=== PATIENT | male | born 1940 | race Caucasian/White ===

== ENCOUNTER → 2017-03-15 | Outpatient (CLI) | payer BC ==
[~2017-03-15] MED LIST: CYAN10005 PO; NXM/40 PO
--- NOTE | 2017-03-15 14:33 | DIAGNOSTIC IMAGING REPORT ---
R INJ MAJOR JN SHLDR,HIP,KNEE CLINICAL HISTORY: RIGHT HIP INTRAARTICULAR INJpain. Arthritis. COMPARISON STUDY: None FLUOROSCOPY TIME: 10 seconds. FINDINGS: Following description of procedure and informed consent, a 20-gauge needle was inserted to the right hip joint space. A test injection confirmed its intra-articular location. This is low back, a combination of Xylocaine, betamethasone, and bupivacaine. There are no complications. IMPRESSION: Successful therapeutic injection right hip The above report was generated using voice recognition software. It may contain grammatical, syntax or spelling errors. Electronically signed by: Bryce Reynolds M.D. 03/15/2017 2:32 PM Dictated Date/Time: 03/15/2017 2:30 PM
== END | disposition home or self-care (01) ==
LOC: C.RADBC 13:40
PROVIDERS: ATTEND Orthopaedic Surgery
DX: M16.11 Unilateral primary osteoarthritis, right hip (principal)

== ENCOUNTER → 2017-04-12 | Outpatient (CLI) | payer BC ==
--- NOTE | 2017-04-12 15:34 | DIAGNOSTIC IMAGING REPORT ---
PELVIS/RIGHT HIP MRI HISTORY: RIGHT HIP PAIN TECHNIQUE: Multiplanar multisequence MRI of the pelvis and right hip were performed without the use of intravenous contrast. COMPARISON STUDY: Pelvis/right hip 03/11/2017. FINDINGS: No fracture or dislocation within the pelvis or hips. Small right hip effusion. There is full-thickness cartilage loss involving a 2 cm area within the superior aspect of the right hip. There is associated subchondral edema within the superior aspect of the femoral head and mild subchondral edema and subchondral cystic change within the superior acetabulum. This is consistent with severe osteoarthritis. There is also tear/maceration of the superior labrum with a 3.2 x 1.0 cm paralabral cyst. There are marginal osteophytes at the acetabulum and right femoral head. No evidence for femoral head collapse. Mild soft tissue edema surrounding the muscles of the right hip including the right adductor muscles. This is likely reactive to the long-standing degenerative change. However, a strain at the proximal attachment of the adductor muscles could also have a similar appearance. Benign prostatic hypertrophy. IMPRESSION: 1. Severe osteoarthritis within the superior aspect of the right hip. 2. Small right hip effusion. 3. There is a superior labral tear/maceration with a 3.2 x 1.0 cm paralabral cyst. 4. Mild soft tissue edema surrounding the muscles of the right hip including the right adductor muscles. This is likely reactive to the long-standing degenerative change. However, a strain at the proximal attachment of the adductor muscles could also have a similar appearance. Electronically signed by: Pasquale Dan M.D. 04/12/2017 3:33 PM Dictated Date/Time: 04/12/2017 3:24 PM
== END | disposition home or self-care (01) ==
LOC: C.MRIBC 14:12
PROVIDERS: ATTEND Orthopaedic Surgery
DX: M25.551 Pain in right hip (principal)

== ENCOUNTER 2017-07-08 07:15 | Inpatient (IN) | payer BC, OTHER ==
[2017-06-03 14:53] VITALS: BMI 23.0
--- NOTE | 2017-06-03 15:22 | PAT Medication Instructions ---
Service Date Jun 03, 2017. Current Home Medication List Cyanocobalamin (Vitamin B-12), 1,000 MCG PO QAM Esomeprazole Magnesium (Nexium), 40 MG PO QAM Gabapentin (Neurontin), 300 MG PO BID Medication Instructions For Your Scheduled Surgery - Hold the following medications the morning of surgery: Cyanocobalamin (Vitamin B-12), 1,000 MCG PO QAM - Take the following medications the morning of surgery with a sip of water: Esomeprazole Magnesium (Nexium), 40 MG PO QAM Gabapentin (Neurontin), 300 MG PO BID - Take the following medications as scheduled the night before surgery: Gabapentin (Neurontin), 300 MG PO BID If you have any questions please call us at [phone] or [phone] or [phone]
[2017-06-03 16:10] LABS: BASO % 0.5 %; BASO ABS # 0.03 K/uL (0-0.2); EOS % 4.9 %; HEMATOCRIT 39.2 % (42-52); LYMPH % 27.6 %; LYMPH ABS # 1.68 K/uL (1.2-3.4); MEAN CELL VOLUME 87.7 fL (80-100); MEAN CORPUSCULAR HEMOGLOBIN 31.3 pg (25-34); MEAN CORPUSCULAR HGB CONC 35.7 g/dl (32-36); MEAN PLATELET VOLUME 9.1 fL (7.4-10.4); MONO % 11.2 %; MONO ABS # 0.68 K/uL (0.11-0.59); NEUT % 55.8 %; PLATELET COUNT 210 K/uL (130-400); RED CELL DISTRIBUTION WIDTH CV 12.5 % (11.5-14.5); RED CELL DISTRIBUTION WIDTH SD 40.4 fL (36.4-46.3); WHITE BLOOD COUNT 6.09 K/uL (4.8-10.8)
--- NOTE | 2017-06-03 16:14 | DIAGNOSTIC IMAGING REPORT ---
CHEST 2 VIEWS ROUTINE HISTORY: Preop. COMPARISON: 01/20/2016. FINDINGS: The lungs are mildly hyperexpanded with apical predominant emphysematous changes. No focal lung consolidations to suggest pneumonia. No evidence for pulmonary edema. The heart is normal in size. No pleural effusions. No pneumothorax. IMPRESSION: No significant change compared to the prior study. No acute process. Electronically signed by: Pasquale Dan M.D. 06/03/2017 4:13 PM Dictated Date/Time: 06/03/2017 4:11 PM
[2017-06-03 16:18] LABS: CALCIUM 8.8 mg/dl (8.5-10.1); CREATININE 1.2 mg/dl (0.60-1.40); POTASSIUM 4.4 mmol/L (3.5-5.1)
[2017-06-03 16:19] LABS: PTT PATIENT 26.5 SECONDS (21.0-31.0)
--- NOTE | 2017-06-29 21:38 | HISTORY & PHYSICAL EXAMINATION ---
DATE OF ADMISSION: 07/08/2017 CHIEF COMPLAINT: Right hip pain. HISTORY OF PRESENT ILLNESS: This is a 76-year-old very active gentleman who presents for surgical treatment of his right hip. He is referred by my partner Dr. Grimes. This started about 7-8 months ago. No particular injury. He describes mostly groin pain, thigh pain and some buttock pain. He has increased pain the further he walks. He has had difficulty putting his shoes and socks on for quite some time. He has had injections which provided minimal relief. He would like to proceed with surgical treatment. PAST MEDICAL HISTORY: 1. Gastroesophageal reflux disease. 2. Arthritis. 3. 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 PAST SURGICAL HISTORY: None. ALLERGIES: None. CURRENT MEDICINES: 1. Nexium 40 mg daily. 2. Vitamin B12. 3. Gabapentin for neuropathy. SOCIAL HISTORY: A 76-year-old male. He lives in [place]. He is . 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 FAMILY HISTORY: Negative for diabetes, heart disease, blood clots. REVIEW OF SYSTEMS: Negative for diabetes, neurologic problems, vascular problems, bleeding disorders. He has underlying neuropathy of unclear nature. No history of DVT or PE. PHYSICAL EXAMINATION: GENERAL: This is a thin, healthy elderly male. He looks to be in good health. HEENT: Benign. NECK: Supple. No lymphadenopathy. LUNGS: Clear to auscultation. HEART: Has a regular rate and rhythm. ABDOMEN: Soft, nontender, nondistended. EXTREMITIES: Grossly neurovascularly intact except as follows: Examination of the right hip and leg reveals the patient walks with a slight bit of a limp. Leg lengths clinically appear pretty equal. He does have stiffness in his hip with internal rotation to neutral, which recreates some pain. External rotation at 25 degrees. Negative straight leg raise. X-RAYS: X-rays of the right hip show advanced right hip DJD. He has complete loss of the superior joint space. He has little bit of the femoral head subluxation out of the acetabulum. ASSESSMENT: A 76-year-old very active gentleman with advanced right hip arthritis. Really gotten worse over the past 6 months and failed conservative treatment. He would like to have his right hip replaced. PLAN: We will take him to the operating room and do a right total hip replacement. The risks and benefits of this procedure were explained to the patient including but not limited to DVT, PE, , infection, neurological injury, vascular injury, bleeding problem, pain, limited range of motion, stiffness, leg length inequality, fracture, nerve palsy, need for blood transfusion, etc. The patient understands and desires to proceed. Informed consent was obtained. As far as discharge plans, he is planning to go to [facility] for a brief rehab stay afterwards.
[2017-07-08] VITALS (16 sets, daily range): BP systolic 100–170; BP diastolic 55–91; PULSE 68–83; TEMP 36.3–36.7; O2SAT 95–100; Ht 170.2 cm; Wt 63.6 kg
[~2017-07-08] VITALS: Ht 170.2 cm; Wt 63.6 kg
[~2017-07-08 07:15] MED LIST changes: +ACETAMINOPHEN 500 MG TAB PO SCH; +BUPIVACAINE 0.5 % 5 MG/1 ML PF 10ML VIAL ONE; +CEFAZOLIN 2000MG IV PUSH 15 ML IV SCH; +FAMOTIDINE 20 MG TAB PO SCH; +GABA-113 PO; +GABAPENTIN 300 MG CAP PO SCH; +LACTATED RINGER'S 1000ML 1,000 ML IV SCH; +LACTATED RINGER'S 1000ML 500 ML IV SCH; +LACTATED RINGER'S 1000ML IV SCH; +METOCLOPRAMIDE HCL 10 MG TAB PO SCH; +TRANEXAMIC ACID INJ 1,000 MG x 1 Bag Preop IV SCH
[2017-07-08] MEDS ORDERED: FENTANYL CITRATE INJ 50 MCG/1 ML 2 ML VIAL ONE (07:33)
[2017-07-08] MEDS ORDERED: MIDAZOLAM HCL 1 MG/ML 2ML VIAL ONE ×2 (07:34)
[2017-07-08] MEDS ORDERED: MORPHINE SULFATE 1MG/1ML 30ML VIAL IV ONE (07:38)
[2017-07-08] MEDS ORDERED: NALOXONE HCL INJ 0.08 MG in SYRINGE 1.8 ML IV PRN (08:56)
[2017-07-08] MEDS ORDERED: LACTATED RINGER'S 1000ML 500 ML IV PRN (08:56)
[2017-07-08] MEDS ORDERED: SODIUM CHLORIDE 0.9% 1000ML 1,000 ML IV PRN (08:56)
[2017-07-08] MEDS ORDERED: NALOXONE HCL INJ 1 MG in SODIUM CHLORIDE 0.9% 1000ML 1,000 ML IV PRN ×4 (08:56)
[2017-07-08] MEDS ORDERED: NO NARCOTICS OR SEDATIVES SCH (09:00)
[2017-07-08] MEDS ORDERED: MoRPHine SULFATE PF 1 MG/ML 10 ML AMP/VIAL EPI PRN (09:00)
[2017-07-08] MEDS ORDERED: KETOROLAC TROMETHAMINE 15 MG/ML VIAL IV. PRN (09:00)
[2017-07-08] MEDS ORDERED: ONDANSETRON INJ 2 MG/ML 2 ML VIAL IV PRN ×3 (09:00→11:00)
[2017-07-08] MEDS ORDERED: KETOROLAC TROMETHAMINE 30 MG/ML VIAL IV. PRN ×2 (09:00)
[2017-07-08] MEDS ORDERED: MEPERIDINE HCL 25 MG/ML CARP IV PRN ×2 (09:00)
[2017-07-08] MEDS ORDERED: PHENYLEPHRINE 100MCG/ML 5ML SYR IV PRN (09:00)
[2017-07-08] MEDS ORDERED: NALBUPHINE HCL INJ 10 MG/ML AMP IV PRN (09:00)
[2017-07-08] MEDS ORDERED: DiphenhydrAMINE HCL 50 MG/ML VIAL IV PRN (09:00)
[2017-07-08] MEDS ORDERED: EpHEDrine SULFATE INJ 50 MG/ML AMP IV PRN ×2 (09:00)
[2017-07-08] MEDS ORDERED: ATROPINE SULFATE 0.1 MG/ML 5ML SYR IV PRN (09:00)
[2017-07-08] MEDS ORDERED: NALOXONE HCL 0.4 MG/1 ML VIAL/CARP IV PRN (09:00)
--- NOTE | 2017-07-08 09:09 | History & Physical Bridge Note ---
H&P Re-Evaluation Bridge Note: I have examined the patient, reviewed the History & Physical and in the interval since the performance of the History & Physical I have noted the following changes of clinical significance: No changes noted
[2017-07-08] MEDS ORDERED: BACITRACIN 50000 UNIT VIAL ONE (09:10)
[2017-07-08] MEDS ORDERED: BUPIVACAINE/EPINEPHRINE 0.5% MPF 1:200,000 30 ML VIAL ONE (09:10)
[2017-07-08] MEDS ORDERED: PHENYLEPHRINE HCL INJ 10 MG/ML VIAL ONE (09:38)
[2017-07-08] MEDS ORDERED: EpHEDrine SULFATE 50MG/5ML SYR ONE (09:56)
[2017-07-08] MEDS ORDERED: EpHEDrine SULFATE INJ 50 MG/ML AMP ONE (09:57)
--- NOTE | 2017-07-08 10:53 | [facility] Post Operative Brief Note ---
Immediate Operative Summary Operative Date Jul 08, 2017. Pre-Operative Diagnosis Advanced Right Hip Degenerative Joint Disease Post-Operative Diagnosis Advanced Right Hip Degenerative Joint Disease Procedure(s) Performed Right Total Hip Arthroplasty--Uncemented Surgeon Dr. Adams Extractions Technologist Surgeon(s) DEQUAN Sifuentes Estimated Blood Loss 300 ml Findings Consistent with Post-Op Diagnosis Fluids (cc crystalloids) 2000 cc Specimens A. Right Femoral Head Drains None Anesthesia Type Spinal MAC Complication(s) none Disposition Accompanied Pt To Recover: yes Disposition: Recovery Room / PACU
[2017-07-08] MEDS ORDERED: SILVER SULFADIAZINE 1% CR 50 GM JAR EXT PRN (11:00)
[2017-07-08] MEDS ORDERED: CEFAZOLIN IV 1,000 MG in DEXTROSE 5% 50ML 50 ML IV SCH (11:00)
[2017-07-08] MEDS ORDERED: ZOLPIDEM TARTRATE 5 MG TAB PO PRN (11:00)
[2017-07-08] MEDS ORDERED: ALUMINUM/MAGNESIUM/SIMETH (MAALOX MAX) 30 ML UDC PO PRN (11:00)
[2017-07-08] MEDS ORDERED: MAGNESIUM HYDROXIDE SUSP 30 ML UDC PO PRN (11:00)
[2017-07-08] MEDS ORDERED: TAMSULOSIN HCL 0.4 MG CAP PO PRN (11:00)
[2017-07-08] MEDS ORDERED: BISACODYL 10 MG SUPP PR PRN (11:00)
[2017-07-08] MEDS ORDERED: METOCLOPRAMIDE HCL INJ 5 MG/ML 2 ML VIAL IV PRN (11:00)
--- NOTE | 2017-07-08 11:30 | DIAGNOSTIC IMAGING REPORT ---
R PELVIS/UNILATERAL HIP 1 VIEW HISTORY: 76 years-old Male IN PACU - A/P PELVIS and LATERAL HIP INCLUDING ALL OF IMPLANT status post right hip total joint arthroplasty. Degenerative joint disease. COMPARISON: Pelvis and hip radiographs 06/03/2017 TECHNIQUE: AP view the pelvis with frog-leg view of the right hip FINDINGS: Mild to moderate left hip osteoarthritis redemonstrated. Postoperative changes of right hip arthroplasty with satisfactory alignment. Expected postsurgical swelling and deep tissue air is noted along with a surgical drain and lateral skin irma. No retained foreign body identified. Calcifications of the pelvis suggest phleboliths. IMPRESSION: Right hip arthroplasty with satisfactory alignment. The above report was generated using voice recognition software. It may contain grammatical, syntax or spelling errors. Electronically signed by: German Solomon M.D. 07/08/2017 11:29 AM Dictated Date/Time: 07/08/2017 11:28 AM
--- NOTE | 2017-07-08 11:39 | Anesthesiology Progress Note ---
Anesthesia Post Op Note Date & Time Jul 08, 2017 at 11:39 Vital Signs Pain Intensity: 0 Vital Signs Past 12 Hours Date Time Temp Pulse Resp B/P (MAP) Pulse Ox O2 Delivery O2 Flow Rate FiO2 07/08/17 11:31 36.4 75 19 109/57 (65) 99 Nasal Cannula 2 07/08/17 11:11 116/59 07/08/17 11:09 78 23 100 07/08/17 11:09 76 23 07/08/17 11:08 72 23 100 07/08/17 11:08 71 23 07/08/17 11:06 117/59 07/08/17 11:03 80 21 07/08/17 11:03 79 21 100 07/08/17 11:01 141/65 07/08/17 10:58 75 20 07/08/17 10:58 74 20 100 07/08/17 10:56 158/71 07/08/17 10:54 172/77 07/08/17 10:53 36.0 74 18 172/77 (123) 99 Oxymask 10 07/08/17 07:42 36.7 74 20 170/91 97 Room Air Notes Mental Status: alert / awake / arousable, participated in evaluation Pt Amnestic to Procedure: Yes Nausea / Vomiting: adequately controlled Pain: adequately controlled Airway Patency, RR, SpO2: stable & adequate BP & HR: stable & adequate Hydration State: stable & adequate Anesthetic Complications: no major complications apparent
--- NOTE | 2017-07-08 11:45 | OPERATIVE REPORT ---
DATE OF OPERATION: 07/08/2017 SURGEON: Rito Adams MD STOCK AND STATION AGENT: DEQUAN Mclaughlin PREOPERATIVE DIAGNOSIS: Right hip degenerative joint disease. POSTOPERATIVE DIAGNOSIS: Same. PROCEDURE PERFORMED: Right uncemented ceramic on highly cross-linked polyethylene total hip arthroplasty. COMPLICATIONS: None. ESTIMATED BLOOD LOSS: 300 mL. FLUID REPLACEMENT: 2000 mL crystalloid fluid replacement. ANESTHESIA: Spinal. DRAINS: None. SPECIMENS: Right femoral head sent for pathology. OPERATIVE INDICATIONS: The patient is a 76-year-old very active gentleman who has had a several year history of the right hip pain and discomfort that has gotten significantly worse over the past 6-7 months. He has had classic hip arthritic symptoms. He failed conservative treatment. He elected to proceed with operative treatment. OPERATIVE FINDINGS: Operative findings revealed advanced right hip DJD. He had grade 4 nykt-ax-yoyc disease with eburnation and degeneration of the femoral head as well as the acetabulum. He had a fairly large medial acetabular osteophyte. Moderate size joint effusion. OPERATIVE IMPLANTS: Operative implants consisted of: 1. A Biomet G7 size 56-mm acetabular shell. 2. An apex hole eliminator. 3. A 6.5 cancellous acetabular screws, 1 at 25 mm length and 1 at 35 mm length. 4. Highly cross-linked polyethylene liner with a 56 mm outer diameter and 36 mm inner diameter. 5. DePuy size 13 coxa vara Corail femoral stem. 6. A +1.5/36 mm ceramic articular ball. OPERATIVE PROCEDURE: The patient was taken to the operating room, identified and placed on the operating table in the supine position. All contact areas were appropriately padded. IV antibiotics were provided by anesthesia team. A spinal anesthetic had been implemented in the holding area. Leary catheter was placed in sterile fashion. The patient was then placed in the left lateral decubitus position. An axillary roll was placed. Stulberg hip positioner was used for positioning. All contact areas were meticulously padded. The right hip and leg were then prepped and draped in the usual sterile fashion. A posterolateral approach to the right hip was then performed through a curvilinear incision centered over the greater trochanter. Sharp dissection was carried out through the subcutaneous tissue down to the level of the IT band and gluteal fascia. The IT band and gluteal fascia were incised longitudinally in line with skin incision. The underlying greater trochanteric bursa was excised. There were fairly large venous bleeders in the posterior aspect of his hip and I spent quite a bit of time cauterizing these and in maintaining and obtaining hemostasis. The piriformis and external rotators were then tagged and taken off the posterior aspect of the hip joint capsule. Great care was taken throughout the procedure to protect the sciatic nerve at all times. A posterior capsulotomy was then performed leaving a large flap for later repair. Hip was internally rotated and dislocated. Femoral neck osteotomy cut was made with the final cut a cm above the lesser trochanter. Femoral head was removed and sent for pathology. The femur was retracted anteriorly. Attention was then drawn to the acetabulum. The acetabulum labrum was excised. The pulvinar fat was excised. Sequential reaming of the acetabulum was then performed beginning with a size 49 progressing up to 55. A 56-mm Biomet G7 acetabular shell was then placed in about 40 degrees of lateral opening and 20 degrees of anteversion. It was fixed with two 6.5 cancellous acetabular screws. A trial liner was placed. Attention was then drawn to the femur. The proximal femur was entered with a cookie cutter followed by canal finder. I began broaching the proximal femur with a size 8 and then progressing up to a 13. We got good fit at a 13. I then trialed the hip. The +5 articular ball provided full stability, but it was just a bit tight in extension. Therefore, we used the +1.5 articular ball. The hip was fully stable in full extension and external rotation, flexion to 90 degrees, and internal rotation to 50+ degrees. We elected to use these implants. All trial implants were removed. An apex hole eliminator was placed. A highly cross-linked polyethylene liner was placed. A size 13 Corail coxa vara femoral stem was then impacted in position. A +1.5/36 mm ceramic articular ball was placed. Hip was located and once again found to be stable. Leg lengths appeared equal. Attention was then drawn toward closing. The wound was irrigated with copious amounts of pulsatile lavage solution. I did inject locally with 60 mL of 0.5% Marcaine with epinephrine. The posterior capsule and external rotators were repaired through drill holes in the posterior trochanter with #2 Ti-Cron suture. The IT band and gluteal fascia were then closed with #1 PDS suture in running fashion. The subcutaneous tissues were then closed with 2 layers with the deep layer #1 Vicryl sutures and subcutaneous tissues with 2-0 Dexon suture in a buried interrupted fashion. The skin was closed with skin irma. Leg was then cleaned and dried and a sterile dressing of Xeroform, 4 x 4, sterile ABD pad and foam tape was applied. The patient was then transferred to the recovery room in stable condition. The patient tolerated the procedure well with no complications. All needle and sponge counts were correct at the end of the operation. I attest to the content of the Intraoperative Record and any orders documented therein. Any exception s are noted below.
[2017-07-08] MEDS: ACETAMINOPHEN 500 MG TAB PO SCH ×2 (13:32→21:31)
[2017-07-08] MEDS: D5W AND 1/2NSS + 20MEQ KCL 1,000 ML IV SCH ×2 (13:32→23:04)
[2017-07-08] MEDS ORDERED: PNEUMOCOCCAL ADMINISTRATION CHARGE ONE (14:15)
[2017-07-08] MEDS ORDERED: PNEUMOCOCCAL POLYSACCHARIDES 25 MCG/0.5 ML VIAL/SYR IM. ONE (14:15)
[2017-07-08] MEDS: FERROUS GLUCONATE 324 MG TAB PO SCH ×2 (17:35→17:49)
[2017-07-08] MEDS: CEFAZOLIN IV 1,000 MG in SYRINGE 0 ML IV SCH (17:43)
[2017-07-08] MEDS: KETOROLAC TROMETHAMINE 15 MG/ML VIAL IV. SCH ×2 (17:43→23:39)
--- NOTE | 2017-07-08 18:06 | PROGRESS NOTE ---
DATE: 07/08/2017 SUBJECTIVE: A 76-year-old gentleman postop from a right total hip replacement. He is doing well. Not having any pain yet. No chest pain or shortness of breath. Not feeling dizzy or lightheaded. OBJECTIVE: VITAL SIGNS: Temperature 36.3. Vital signs stable. GENERAL: Reveals a pleasant elderly male. He is sitting up in bed and looks comfortable. LUNGS: Clear to auscultation. HEART: Has a regular rate and rhythm. ABDOMEN: Soft, nontender, nondistended. EXTREMITIES: Grossly neurovascularly intact except as follows: Examination of the right hip and leg reveals leg lengths to be equal. His dressing is clean, dry and intact. Thigh is soft and supple. He can dorsiflex and plantarflex his foot his appropriately. He is neurologically intact. X-RAYS: X-rays of the right hip from recovery room were reviewed. It shows a right uncemented total hip arthroplasty. Components looked to be in good position. No signs of problems. ASSESSMENT: A 76-year-old gentleman postop from a right total hip replacement, doing well. His pain is controlled. Hip is located. He is neurologically intact. PLAN: 1. DVT prophylaxis including thigh-high TEDs, SCDs, and aspirin twice a day. 2. PT/OT. Weightbearing as tolerated. Right total hip protocol. 3. Pain control, doing well with current pain regimen. 4. IV antibiotics x24 hours. 5. Disposition: Plan is to discharge him to [facility]. He has made arrangements for that. Apparently they have a bed available on Tuesday. LUIS
[2017-07-08] MEDS ORDERED: TRANEXAMIC ACID INJ 1,000 MG in SODIUM CHLORIDE 0.9% 100ML 100 ML IV SCH (18:30)
[2017-07-08] MEDS: ASPIRIN 81 MG ECTAB PO SCH (20:34)
[2017-07-08] MEDS: GABAPENTIN 300 MG CAP PO SCH (20:34)
[2017-07-08] MEDS: DOCUSATE SODIUM 100 MG CAP PO SCH (20:34)
[2017-07-08] MEDS: SENNA 8.6 MG TAB PO SCH (20:35)
[2017-07-09 00:50] VITALS: O2SAT 100
[2017-07-09 01:50] VITALS: O2SAT 99
[2017-07-09] MEDS ORDERED: DC INTRASPINAL MORPHINE SCH (02:00)
[2017-07-09] MEDS: CEFAZOLIN IV 1,000 MG in SYRINGE 0 ML IV SCH (02:25)
[2017-07-09 03:49] VITALS: BP 108/62; PULSE 74; TEMP 36.4; O2SAT 97
[2017-07-09] MEDS: KETOROLAC TROMETHAMINE 15 MG/ML VIAL IV. SCH (05:19)
[2017-07-09] MEDS: ACETAMINOPHEN 500 MG TAB PO SCH ×3 (05:20→22:12)
[2017-07-09 05:53] LABS: BASO % 0.2 %; BASO ABS # 0.02 K/uL (0-0.2); EOS % 3.1 %; EOS ABS # 0.25 K/uL (0-0.5); HEMATOCRIT 30.3 % (42-52); HEMOGLOBIN 10.8 g/dL (14.0-18.0); IG# 0.01 K/uL (0.00-0.02); LYMPH % 11.6 %; LYMPH ABS # 0.93 K/uL (1.2-3.4); MEAN CELL VOLUME 86.8 fL (80-100); MEAN CORPUSCULAR HEMOGLOBIN 30.9 pg (25-34); MEAN CORPUSCULAR HGB CONC 35.6 g/dl (32-36); MEAN PLATELET VOLUME 9.1 fL (7.4-10.4); MONO % 10.1 %; MONO ABS # 0.81 K/uL (0.11-0.59); NEUT % 74.9 %; NEUT ABS # 6.03 K/uL (1.4-6.5); PLATELET COUNT 165 K/uL (130-400); RED CELL DISTRIBUTION WIDTH CV 12.5 % (11.5-14.5); RED CELL DISTRIBUTION WIDTH SD 39.5 fL (36.4-46.3); WHITE BLOOD COUNT 8.05 K/uL (4.8-10.8)
[2017-07-09 06:21] LABS: CALCIUM 7.4 mg/dl (8.5-10.1); CREATININE 1.41 mg/dl (0.60-1.40); POTASSIUM 4.3 mmol/L (3.5-5.1)
[2017-07-09 07:03] VITALS: BP 121/75; PULSE 79; TEMP 36.8; O2SAT 97
--- NOTE | 2017-07-09 08:00 | PROGRESS NOTE ---
DATE: 07/09/2017 SUBJECTIVE: A 76-year-old gentleman postop day 1 from a right hip replacement. He is doing well. Denies significant pain. No chest pain or shortness of breath. Not feeling dizzy or lightheaded. OBJECTIVE: VITAL SIGNS: Temperature 36.8. Vital signs stable. PHYSICAL EXAMINATION: GENERAL: Reveals a healthy pleasant elderly male. He is sitting up in bed, looks pretty comfortable. EXTREMITIES: Examination of the right hip and leg reveals leg lengths to be equal. Dressing is clean, dry and intact. Hip is located. He is neurologically intact. LABORATORY DATA: Hemoglobin 10.8, hematocrit 30.3. Electrolytes are stable. Creatinine is slightly elevated at 1.41. ASSESSMENT: A 76-year-old gentleman postop day 1 from a right total hip replacement, doing pretty well. Pain is controlled. He is anemic without symptoms. Creatinine is elevated slightly, likely due to volume status and possible Toradol use. PLAN: 1. DVT prophylaxis including thigh-high TEDs, SCDs, and aspirin twice a day. 2. PT/OT. Weight bear as tolerated. Right total hip protocol. 3. Pain control. Doing well with current pain regimen. 4. Anemia. We will continue iron supplementation. No need for transfusion. 5. Elevated creatinine. We will stop his Toradol. We will recheck his creatinine tomorrow. 6. Disposition: He is hoping to be discharged to [facility]. They have a bed for him on Tuesday.
[2017-07-09] MEDS: PANTOprazole SOD 40 MG TAB PO SCH (08:51)
[2017-07-09] MEDS: GABAPENTIN 300 MG CAP PO SCH ×2 (08:51→19:56)
[2017-07-09] MEDS: MULTIVITAMIN TAB PO SCH (08:51)
[2017-07-09] MEDS: D5W AND 1/2NSS + 20MEQ KCL 1,000 ML IV SCH (08:51)
[2017-07-09] MEDS: CYANOCOBALAMIN 500 MCG TAB (VIT B-12) PO SCH (08:51)
[2017-07-09] MEDS: FERROUS GLUCONATE 324 MG TAB PO SCH ×3 (08:51→17:34)
[2017-07-09] MEDS: DOCUSATE SODIUM 100 MG CAP PO SCH ×2 (08:51→19:56)
[2017-07-09] MEDS: ASPIRIN 81 MG ECTAB PO SCH ×2 (08:51→19:56)
[2017-07-09] MEDS ORDERED: PANTOprazole SOD 40 MG TAB PO SCH (09:00)
[2017-07-09 15:07] VITALS: BP 105/57; PULSE 73; TEMP 36.7; O2SAT 96
[2017-07-09] MEDS: SENNA 8.6 MG TAB PO SCH (19:56)
[2017-07-09] MEDS: TRAMADOL HCL 50 MG TAB PO PRN (19:57)
[2017-07-09] MEDS ORDERED: ASPEC81 PO (20:53)
[2017-07-09] MEDS ORDERED: ACET-24 PO (20:53)
[2017-07-09] MEDS ORDERED: FRRG PO (20:53)
[2017-07-09] MEDS ORDERED: ULT50X PO (20:53)
--- NOTE | 2017-07-09 20:57 | Discharge Instructions ---
Discharge Instructions Date of Service Jul 09, 2017. Admission Reason for Admission: Right Hip Degenerative Joint Disease Discharge Discharge Diagnosis / Problem: Right Hip Replacement Discharge Goals Goal(s): Decrease discomfort, Improve function, Increase independence, Improve disease control, Therapeutic intervention Activity Recommendations Activity Level: Assistance Required Therapies: Physical Therapy (Total Hip Precautions), Occupational Therapy Weightbearing Status: Right weightbearing . Additional Information Patient informed of condition: Yes Advance Directives: Yes DNR: No Level of Care: Skilled Communicable Disease: No Prognosis: Improving Instructions / Follow-Up Instructions / Follow-Up ACTIVITY RECOMMENDATIONS: Physical Therapy: * Aggressive physical therapy is not usually needed. You will learn to take care of yourself safely and walk. * Follow the "Hip Precautions Instructions." * In some cases, the social media developer at the hospital will arrange to have a therapist come to your house for the first couple of weeks to help you learn these skills. * You need to practice on your own or with the help of a family member as needed. * When you learn these skills, most of the therapy can be done on your own. Home Exercise: * You were shown a series of exercises in the hospital. Do these exercises three to four times each day including the exercises you were shown in physical therapy. Walking: * Get up and walk several times each day. For the first four weeks, try not to stand or walk for more than one hour at a time. If you do stand or walk for more than one hour, you will not hurt anything, but your leg will likely swell. * As you feel comfortable, you may change from the walker or crutches to a cane and then to independent walking. MEDICATIONS: New Medicine: * You will likely be taking one or more of these medicines: 1. Tramadol - Take, as directed, when you need it, every four to six hours to control your pain. 2. Iron Sulfate - Take two times each day for the month after surgery to help you replace the blood lost during surgery. 3. Aspirin - Thins your blood to lessen the chance of forming a blood clot. * The most common side effects of pain medicine and iron are nausea and constipation. If nausea or constipation is too much of a problem or if you have any questions about your new medicines or doses, call [facility] at . We will try to help you manage these issues. VERY IMPORTANT TO READ AND REVIEW" Pain: * The immediate post-operative period after hip replacement surgery is often quite painful. * You are given a prescription for pain medicine. You should take it, as directed, when you need it, especially before physical therapy and before going to bed. Pain that interferes with sleep is very common and can last several months. * You will likely need pain medicine for the first two to four weeks. It will not stop all of the pain. The pain will lessen and as you feel better, you may change to milder pain medicine such as Tylenol. * The most common side effects of pain medicine are nausea and constipation, so don't take more than you need. SPECIAL CARE INSTRUCTIONS: TEDs/Elastic Stockings: * The white elastic stockings help limit swelling and prevent blood clots from forming in your legs. The more you wear them, the more they work. * Wear them for six weeks. Prevention of Infection: * Take antibiotics one hour before any dental cleaning, dental work, urological procedure, gastrointestinal procedure or any invasive surgery in order to prevent your new joint from getting infected. * You may get the antibiotics from the doctor performing the procedure or you may call our office at before and we will call in a prescription to the pharmacy of your choice. Things to Watch For: * Drainage from the incision site that occurs more than one week after your surgery. * Severely increased leg pain or swelling. * Increased redness at the incision site. * Fever above 102 degrees Fahrenheit. * Unusual chest pain or shortness of breath. * Unusual pain or burning with urination. Call [facility] at with any of the above problems or if you have any questions about your medicines or recovery. FOLLOW UP VISIT: Make an appointment to see your doctor for approximately two weeks after surgery for a progress check and staple removal by calling the office at . Current Hospital Diet Patient's current hospital diet: Regular Diet Discharge Diet Recommended Diet: Regular Diet Procedures Procedures Performed: Right Total Hip Arthroplasty--Uncemented Pending Studies Studies pending at discharge: no Medical Emergencies . Who to Call and When: Medical Emergencies: If at any time you feel your situation is an emergency, please call [phone] immediately. . Non-Emergent Contact Non-Emergency issues call your: Surgeon . . "Provider Documentation" section prepared by Rito Adams. . Core Measure Problem Core Measures: None
[2017-07-09 23:41] VITALS: BP 121/66; PULSE 76; TEMP 36.6; O2SAT 97
[2017-07-10] MEDS: TRAMADOL HCL 50 MG TAB PO PRN ×3 (00:05→20:49)
[2017-07-10 06:02] LABS: CALCIUM 8.2 mg/dl (8.5-10.1); CREATININE 1.28 mg/dl (0.60-1.40); POTASSIUM 4.6 mmol/L (3.5-5.1)
[2017-07-10] MEDS: ACETAMINOPHEN 500 MG TAB PO SCH ×3 (06:43→20:51)
[2017-07-10 06:47] VITALS: BP 135/67; PULSE 84; TEMP 36.3; O2SAT 91
[2017-07-10] MEDS: PANTOprazole SOD 40 MG TAB PO SCH (07:56)
[2017-07-10] MEDS: FERROUS GLUCONATE 324 MG TAB PO SCH ×3 (07:56→18:08)
[2017-07-10] MEDS: GABAPENTIN 300 MG CAP PO SCH ×2 (07:57→20:50)
[2017-07-10] MEDS: DOCUSATE SODIUM 100 MG CAP PO SCH ×2 (07:57→20:49)
[2017-07-10] MEDS: ASPIRIN 81 MG ECTAB PO SCH ×2 (07:57→20:50)
[2017-07-10] MEDS: MULTIVITAMIN TAB PO SCH (07:58)
[2017-07-10] MEDS: CYANOCOBALAMIN 500 MCG TAB (VIT B-12) PO SCH (07:58)
--- NOTE | 2017-07-10 08:11 | PROGRESS NOTE ---
DATE: 07/10/2017 SUBJECTIVE: A 76-year-old gentleman postop day 2 from right total hip replacement. He is doing pretty well. He rates his most severe pain as a 4 or 5/10. No chest pain or shortness of breath. Not feeling dizzy or lightheaded. OBJECTIVE: VITAL SIGNS: Temperature 36.3. Vital signs stable. PHYSICAL EXAMINATION: GENERAL: Reveals a healthy, pleasant elderly male. He is sitting up in his bedside chair and looks pretty comfortable. EXTREMITIES: Examination of the right hip reveals his incision to be clean, dry and intact. There is some irritation from the tape. Some mild swelling. His hip is located. He is neurologically intact. LABORATORY DATA: Creatinine improved at 1.28. ASSESSMENT: A 76-year-old gentleman postop day 2 from right hip replacement, doing pretty well. His hip is located. He is neurologically intact. Creatinine is improved. PLAN: 1. DVT prophylaxis including thigh-high TEDs, SCDs, and aspirin twice a day. 2. PT/OT. Weight bear as tolerated. Right total hip protocol. 3. Pain control, doing well with current pain regimen. 4. Elevated creatinine. Creatinine has improved and back to baseline normal levels. 5. Disposition: Planning to be discharged to [facility] tomorrow.
[2017-07-10 14:58] VITALS: BP 121/66; PULSE 71; TEMP 36.6; O2SAT 98
[2017-07-10] MEDS: SENNA 8.6 MG TAB PO SCH (20:49)
[2017-07-10 23:45] VITALS: BP 138/70; PULSE 75; TEMP 36.5; O2SAT 96
[2017-07-11] MEDS: TRAMADOL HCL 50 MG TAB PO PRN ×2 (02:40→12:23)
[2017-07-11] MEDS: ACETAMINOPHEN 500 MG TAB PO SCH (05:38)
[2017-07-11 06:07] VITALS: BP 130/50; PULSE 72; TEMP 36.6; O2SAT 96
[2017-07-11] MEDS: PANTOprazole SOD 40 MG TAB PO SCH (07:38)
[2017-07-11] MEDS: GABAPENTIN 300 MG CAP PO SCH (07:38)
[2017-07-11] MEDS: ASPIRIN 81 MG ECTAB PO SCH (07:38)
[2017-07-11] MEDS: DOCUSATE SODIUM 100 MG CAP PO SCH (07:38)
[2017-07-11] MEDS: MULTIVITAMIN TAB PO SCH (07:39)
[2017-07-11] MEDS: FERROUS GLUCONATE 324 MG TAB PO SCH ×2 (07:39→12:22)
[2017-07-11] MEDS: CYANOCOBALAMIN 500 MCG TAB (VIT B-12) PO SCH (07:39)
[2017-07-11 08:20] VITALS: BP 130/50; PULSE 72; TEMP 36.6; O2SAT 96
--- NOTE | 2017-07-11 08:33 | PROGRESS NOTE ---
DATE: 07/11/2017 SUBJECTIVE: A 76-year-old gentleman postop day 3 from right hip replacement, doing pretty well. Some moderate amount of pain. No chest pain or shortness of breath. Not feeling dizzy or lightheaded. OBJECTIVE: VITAL SIGNS: Temperature 36.6. Vital signs stable. GENERAL: Reveals a healthy, pleasant elderly male. He was walking around in his room with his walker this morning while I visited him. EXTREMITIES: Examination of the right hip reveals the incision to be clean, dry and intact. Fairly mild swelling. Hip is located. He is neurologically intact. ASSESSMENT: A 76-year-old gentleman postop day 3 from a right total hip replacement, doing pretty well. Pain is reasonably well controlled. PLAN: 1. DVT prophylaxis including thigh-high TEDs, SCDs, and aspirin twice a day. 2. PT/OT. Weight bear as tolerated. Right total hip protocol. 3. Pain control, doing reasonably well with current pain regimen. 4. Disposition: Plan to discharge to [place] later today.
--- NOTE | 2017-07-14 16:14 | DISCHARGE SUMMARY ---
ADMITTING PHYSICIAN AND SURGEON: Dr. Adams. ADMITTING DIAGNOSIS: Right hip degenerative joint disease. SURGERY PERFORMED: Right total hip arthroplasty. SECONDARY DIAGNOSES: Gastroesophageal reflux disease, arthritis, bilateral lower extremity neuropathy. CONSULTS: None obtained. HISTORY AND PHYSICAL EXAMINATION: Well documented in the patient's chart. HOSPITAL COURSE: The patient was admitted on 07/08/2017 and underwent total hip arthroplasty, tolerated the procedure well. There were no complications. He was transferred to the PACU postoperatively and later to the orthopedic floor for further care. He was given Ancef for antibiotic prophylaxis, YAZAN stockings, SCDs and aspirin for DVT prophylaxis. Hemoglobin, hematocrit and vital signs were monitored during his hospital stay and remained stable. He did develop some postoperative anemia, did not require any blood transfusions. He had elevated creatinine and his Toradol was discontinued and this did improve to normal levels. There were no complications during his hospital stay. By postoperative day 3, he was tolerating a regular diet. Pain was controlled with oral pain medicine. He was participating in physical therapy. On postop day 3, he was discharged home and set up with home health services, given printed discharge instructions including new prescriptions for extra strength Tylenol, aspirin, iron supplement and tramadol. Continue his home medications, continue physical therapy, weightbearing as tolerated, YAZAN stockings, total hip precautions and follow up in 10-12 days or sooner if there are any problems or concerns.
== END 2017-07-11 14:02 | disposition home health service (06) | DRG 470 ==
LOC: C.ACU 07:15 → C.3E 11:03 → ENRESERV 11:33
PROVIDERS: ADMIT Orthopaedic Surgery Sports Medicine; ATTEND Orthopaedic Surgery Sports Medicine
PROC: 0SR904A Replacement of Right Hip Joint with Ceramic on Polyethylene Synthetic Substitute, Uncemented, Open Approach (ICD-10-PCS; principal; 2017-07-08 09:30)
DX: M16.11 Unilateral primary osteoarthritis, right hip (principal); M25.451 Effusion, right hip; D64.9 Anemia, unspecified; R79.89 Other specified abnormal findings of blood chemistry; K21.9 Gastro-esophageal reflux disease without esophagitis; G62.9 Polyneuropathy, unspecified; Z79.899 Other long term (current) drug therapy

== ENCOUNTER 2020-05-09 12:57 | Observation (INO) ==
--- NOTE | 2020-05-09 14:42 | Emergency Department Note ---
Impression & Plan Acute GI bleeding, Fall, Closed fracture of left hip, Anemia ED Provider Note NAME: MORE NELSON AGE: 79 SEX: M : 1940 ARRIVES VIA: Walk-In INFORMANT: Patient ED PROVIDER(S): Stephan Claros DO CHIEF COMPLAINT: Lower abdominal pain HPI: Patient is an 79-year-old male who presents to the ER for dysuria, urgency and frequency. This has been going on for the past 3 days. He notes he continually feels like he has to go. He has never had this before. He has a fullness and pressure in his lower pelvic region. He denies any headache or change in vision. No cough or runny nose. No chest pain or shortness of breath. No nausea, vomiting or diarrhea. Pain was about a 9 out of 10. Has nearly completely abated after the placement of a Leary which was done per protocol. Does admit to some blood in his stools. ROS: See above HPI for pertinent positives & negatives. A total of 10 systems reviewed and were otherwise negative. PAST MEDICAL HISTORY:See Below PAST SURGICAL HISTORY:See Below FAMILY HISTORY:See Below SOCIAL HISTORY:See Below HOME MEDICATIONS:See Below ALLERGIES:See Below VITALS:See Below PHYSICAL EXAMINATION: GENERAL: Sitting up in bed, alert, ill-appearing, disheveled EYE EXAM: normal conjunctiva. OROPHARYNX: no exudate, no erythema, lips, buccal mucosa, and tongue normal and mucous membranes are moist NECK: supple, no nuchal rigidity, no adenopathy, non-tender LUNGS: Clear to auscultation. Normal chest wall mechanics HEART: no murmurs, S1 normal and S2 normal ABDOMEN: abdomen soft, non-tender, normo-active bowel sounds, no masses, no rebound or guarding. : Normal external genitalia with a Leary in place draining clear yellow urine 900 cc in bag RECTAL: hem + stool UPPER EXTREMITIES: upper extremities are grossly normal. LOWER EXTREMITIES: No pitting edema. NEURO EXAM: Normal sensorium, cranial nerves II-XII grossly intact, normal speech, no gross weakness of arms, no gross weakness of legs. MEDICAL DECISION MAKING: Patient is an 79-year-old male who presents the ER for trouble urinating. Leary was placed and he had more than 1000 cc out after a bladder scan. He had improvement of his symptoms. Labs were obtained to check creatinine function due to duration of the symptoms. Labs showed no significant leukocytosis but did show a significant anemia with a hemoglobin of 7.6 down from 14 previously this year. He is on Eliquis. BMP with mild hyponatremia. Creatinine was normal. LFTs bilirubin was unremarkable. UA was clean. Covid negative. Patient was typed and screened. Discussed with Christa Elena for further evaluation following rectal exam which was heme positive. Triage Nursing notes reviewed. Prior medical records reviewed Vital Signs: reviewed and remarkable for no significant abnormalities Differential diagnosis: Differential diagnoses includes but is not limited to gastritis, peptic ulcer disease, GERD, gallbladder disease, pancreatitis, small bowel obstruction, acute coronary syndrome, pericarditis, ischemic bowel, irritable bowel disease, irritable bowel syndrome, appendicitis, diverticulitis, malignancy, hernia, urinary tract infection, torsion, perforation, trauma, infectious. ER treatment provided: See below Diagnostics interpreted by me: ECG: none Cardiac Monitoring: An order was placed for continuous cardiac monitoring. The monitor shows a rate of 70 with sinus rhythm. Laboratory studies: As stated above and show below. Imaging studies: Bladder scan showed distended bladder Consultation(s): none ED COURSE: Procedures: none Critical Care: None Past Med/Surg History Medical History (Updated 05/09/20 @ 20:26 by Stephan Claros DO) Cholecystitis Chronic kidney disease (CKD) GERD (gastroesophageal reflux disease) Paroxysmal atrial flutter Tachy-crispin syndrome Family History Other Family history non-contributory Social History Smoking Status: Never smoker Do You Dip or Chew Tobacco: No; Hx Alcohol Use: No Hx Substance Use: No Preferred Language: Kazakh Communication Ability: Effective Hearing Ability: Normal Automatic Dry Starch Operator Required: Voice Beliefs That Will Affect Care: None marital status: Current Living Situation: Spouse current occupational status: employed Other Information That Helps Us Care for You: No Feels Safe at Home: Yes Safety Concerns: Feels Safe At This Time Assistive Devices: Cane Allergies Allergies Allergy/AdvReac Type Severity Reaction Status Date / Time No Known Allergies Allergy Unknown Verified 05/09/20 15:27 Home Meds Home Medications Medication Instructions Recorded Confirmed gabapentin 300 mg PO BID 06/25/18 05/09/20 metoprolol succinate 12.5 mg PO HS 03/31/19 05/09/20 apixaban [Eliquis] 2.5 mg PO Q12H 05/09/20 05/09/20 metoprolol succinate 25 mg PO DAILY 05/09/20 05/09/20 pantoprazole 40 mg PO DAILY 05/09/20 05/09/20 sucralfate 1 g PO TID PRN 05/09/20 05/09/20 tramadol 50 mg PO UD PRN 05/09/20 05/09/20 Results & Data (ED) Vital Signs Vital Signs - 24 hr 05/09/20 13:13 05/09/20 14:28 05/09/20 15:20 Temperature 36.9 C Temperature Source Oral Pulse Rate 56 L 74 Pulse Rate [Finger] 77 74 Pulse Rhythm Regular Pulse Rhythm [Finger] Regular Pulse Strength [Finger] Normal Respiratory Rate 20 18 18 Respiratory Effort / Characteristics Non-Labored Spontaneous Respiratory Depth Normal Respiratory Pattern Regular Blood Pressure 132/62 Blood Pressure [Left Arm] 119/60 111/54 L Blood Pressure Mean 85 Blood Pressure Mean [Left Arm] 79 73 Blood Pressure Position [Left Arm] Lying Pulse Oximetry 97 96 96 Oxygen Delivery Method Room Air Room Air Room Air Sepsis Recent Fever Within 48 Hours No Sepsis New/Unexplained Change in Mental Status N/A Sepsis Action Taken by Nursing No Action Required 05/09/20 17:11 Temperature Temperature Source Pulse Rate Pulse Rate [Finger] 76 Pulse Rhythm Pulse Rhythm [Finger] Regular Pulse Strength [Finger] Normal Respiratory Rate 18 Respiratory Effort / Characteristics Non-Labored Spontaneous Respiratory Depth Normal Respiratory Pattern Regular Blood Pressure Blood Pressure [Left Arm] 128/66 Blood Pressure Mean Blood Pressure Mean [Left Arm] 86 Blood Pressure Position [Left Arm] Sitting Pulse Oximetry 97 Oxygen Delivery Method Room Air Sepsis Recent Fever Within 48 Hours Sepsis New/Unexplained Change in Mental Status Sepsis Action Taken by Nursing Laboratory Data Result diagrams: 05/09/20 15:23 05/09/20 15:21 Lab Results 05/09/20 05/09/20 05/09/20 Range/Units 14:30 15:21 15:23 WBC 7.01 (4.8-10.8) K/uL RBC 2.86 L (4.7-6.1) M/uL Hgb 7.6 L (14.0-18.0) g/dL Hct 23.7 L (42-52) % MCV 82.9 (80-100) fL MCH 26.6 (25-34) pg MCHC 32.1 (32-36) g/dL RDW Std Deviation 47.7 H (36.4-46.3) fL RDW Coeff of Maryanne 15.8 H (11.5-14.5) % Plt Count 463 H (130-400) K/uL MPV 8.0 (7.4-10.4) fL Immature Gran % (Auto) 0.4 % Neut % (Auto) 80.4 % Lymph % (Auto) 11.6 % Jewell % (Auto) 7.3 % Eos % (Auto) 0.3 % Baso % (Auto) 0.0 % Neut # (Auto) 5.64 (1.4-6.5) K/uL Lymph # (Auto) 0.81 L (1.2-3.4) K/uL Jewell # (Auto) 0.51 (0.11-0.59) K/uL Eos # (Auto) 0.02 (0-0.5) K/uL Baso # (Auto) 0.00 (0-0.2) K/uL Immature Gran # (Auto) 0.03 H (0.00-0.02) K/uL Hypochromasia Present Rouleaux 1+ Sodium 130 L (136-145) mmol/L Potassium 4.4 (3.5-5.1) mmol/L Chloride 94 L (98-107) mmol/L Carbon Dioxide 27 (21-32) mmol/L Anion Gap 9.0 (3-11) BUN 24 H (7-18) mg/dl Creatinine 1.33 (0.6-1.4) mg/dl Est Cr Clr Drug Dosing 37.6 ml/min Est GFR ( Amer) 57.7 Est GFR (Non-Af Amer) 49.8 BUN/Creatinine Ratio 17.8 (10-20) Glucose 108 H (70-99) mg/dl Calcium 8.7 (8.5-10.1) mg/dl Total Bilirubin 0.6 (0.2-1) mg/dl AST 42 H (15-37) U/L ALT 33 (12-78) U/L Alkaline Phosphatase 124 H (45-117) U/L Total Protein 8.6 H (6.4-8.2) gm/dl Albumin 1.6 L (3.4-5.0) gm/dl Globulin 7.0 H (2.5-4.0) gm/dl Albumin/Globulin Ratio 0.2 L (0.9-2) Urine Color Dark Yellow Urine Appearance Clear (Clear) Urine pH 6.0 (4.5-7.5) Ur Specific Erin 1.011 (1.000-1.030) Urine Protein Trace H (Negative) Urine Glucose (UA) Negative (Negative) Urine Ketones Negative (Negative) Urine Blood Negative (Negative) Urine Nitrite Negative (Negative) Urine Bilirubin Negative (Negative) Urine Urobilinogen Negative (Negative) Ur Leukocyte Esterase Negative (Negative) Urine WBC (Auto) 1-5 (0-5) /hpf Urine RBC (Auto) 0-4 (0-4) /hpf U Hyaline Cast (Auto) 1-5 (0-5) /lpf U Epithel Cells (Auto) 5-10 H (0-5) /lpf Urine Bacteria (Auto) Negative (Negative) Blood Type Antibody Screen Crossmatch 05/09/20 Range/Units 16:29 WBC (4.8-10.8) K/uL RBC (4.7-6.1) M/uL Hgb (14.0-18.0) g/dL Hct (42-52) % MCV (80-100) fL MCH (25-34) pg MCHC (32-36) g/dL RDW Std Deviation (36.4-46.3) fL RDW Coeff of Maryanne (11.5-14.5) % Plt Count (130-400) K/uL MPV (7.4-10.4) fL Immature Gran % (Auto) % Neut % (Auto) % Lymph % (Auto) % Jewell % (Auto) % Eos % (Auto) % Baso % (Auto) % Neut # (Auto) (1.4-6.5) K/uL Lymph # (Auto) (1.2-3.4) K/uL Jewell # (Auto) (0.11-0.59) K/uL Eos # (Auto) (0-0.5) K/uL Baso # (Auto) (0-0.2) K/uL Immature Gran # (Auto) (0.00-0.02) K/uL Hypochromasia Rouleaux Sodium (136-145) mmol/L Potassium (3.5-5.1) mmol/L Chloride (98-107) mmol/L Carbon Dioxide (21-32) mmol/L Anion Gap (3-11) BUN (7-18) mg/dl Creatinine (0.6-1.4) mg/dl Est Cr Clr Drug Dosing ml/min Est GFR ( Amer) Est GFR (Non-Af Amer) BUN/Creatinine Ratio (10-20) Glucose (70-99) mg/dl Calcium (8.5-10.1) mg/dl Total Bilirubin (0.2-1) mg/dl AST (15-37) U/L ALT (12-78) U/L Alkaline Phosphatase (45-117) U/L Total Protein (6.4-8.2) gm/dl Albumin (3.4-5.0) gm/dl Globulin (2.5-4.0) gm/dl Albumin/Globulin Ratio (0.9-2) Urine Color Urine Appearance (Clear) Urine pH (4.5-7.5) Ur Specific Erin (1.000-1.030) Urine Protein (Negative) Urine Glucose (UA) (Negative) Urine Ketones (Negative) Urine Blood (Negative) Urine Nitrite (Negative) Urine Bilirubin (Negative) Urine Urobilinogen (Negative) Ur Leukocyte Esterase (Negative) Urine WBC (Auto) (0-5) /hpf Urine RBC (Auto) (0-4) /hpf U Hyaline Cast (Auto) (0-5) /lpf U Epithel Cells (Auto) (0-5) /lpf Urine Bacteria (Auto) (Negative) Blood Type B Positive Antibody Screen NEGATIVE Crossmatch See Detail Administered Medications Discontinued Medications Pantoprazole Sodium 40 mg/ (Syringe) 10 mls @ 5 mls/min IV NOW ONE Stop: 05/09/20 16:14 Last Admin: 05/09/20 17:09 Dose: 5 mls/min Documented by: [id number] Discharge Plan Visit Data Chief Complaint: Urinary Symptoms Stated Complaint: CANT PEE OR POOP ED Provider: Stephan Claros Discharge Problem: Acute GI bleeding, Fall, Closed fracture of left hip, Anemia Patient Disposition: Admitted As Inpatient Discharge Instructions Interventions: ED Discharge Assessment Last Done: 05/09/20 18:13 Discharge Problem: Fall Qualifiers: Encounter type: initial encounter Qualified Code(s): W19.XXXA - Unspecified fall, initial encounter Closed fracture of left hip Qualifiers: Encounter type: initial encounter Qualified Code(s): S72.002A - Fracture of unspecified part of neck of left femur, initial encounter for closed fracture Anemia Qualifiers: Anemia type: unspecified type Qualified Code(s): D64.9 - Anemia, unspecified
[2020-05-09 15:01] LABS: Appearance Urine Clear (Clear); Bacteria Urine Automated Negative (Negative); Bilirubin Urine Negative (Negative); Blood Urine Negative (Negative); Color Urine Dark Yellow; Glucose Urine UA Negative (Negative); Ketones Urine Negative (Negative); Leukocyte Esterase Urine Negative (Negative); Nitrite Urine Negative (Negative); Protein Urine Trace (Negative); RBC Urine Automated 0-4 /hpf (0-4); Specific Gravity Urine 1.011 (1.000-1.030); Urobilinogen Urine Negative (Negative)
[2020-05-09 15:32] LABS: Eosinophils # (auto) 0.02 K/uL (0-0.5); Eosinophils % (auto) 0.3 %; Hematocrit (blood only) 23.7 % (42-52); Hemoglobin 7.6 g/dL (14.0-18.0); Immature Granulocytes # (auto) 0.03 K/uL (0.00-0.02); Immature Granulocytes % (auto) 0.4 %; Lymphocytes # (auto) 0.81 K/uL (1.2-3.4); Lymphocytes % (auto) 11.6 %; Mean Corpuscular Hemoglobin 26.6 pg (25-34); Mean Corpuscular Hgb Conc 32.1 g/dL (32-36); Mean Corpuscular Volume 82.9 fL (80-100); Monocytes # (auto) 0.51 K/uL (0.11-0.59); Monocytes % (auto) 7.3 %; Neutrophils # (auto) 5.64 K/uL (1.4-6.5); Neutrophils % (auto) 80.4 %; Platelet Count 463 K/uL (130-400); RDW Coefficient of Variation 15.8 % (11.5-14.5); RDW Standard Deviation 47.7 fL (36.4-46.3); Red Blood Count 2.86 M/uL (4.7-6.1); White Blood Count 7.01 K/uL (4.8-10.8)
[2020-05-09 15:51] LABS: Albumin Level 1.6 gm/dl (3.4-5.0); BUN Creatinine Ratio 17.8 (10-20); Calcium 8.7 mg/dl (8.5-10.1); Creatinine Clr Calc Pharmacy 37.6 ml/min; Est GFR (African American) 57.7; Est GFR (Non-African American) 49.8; Potassium 4.4 mmol/L (3.5-5.1)
[2020-05-09 15:54] LABS: Albumin Globulin Ratio 0.2 (0.9-2); Bilirubin,Total 0.6 mg/dl (0.2-1); Total Protein 8.6 gm/dl (6.4-8.2)
[2020-05-09 15:57] LABS: Hypochromasia Present; Rouleaux 1+
[2020-05-09] MEDS ORDERED: PANTOprazole 40 MG in SYRINGE 0 ML IV ONE (16:13)
[2020-05-09] MEDS ORDERED: SODIUM CHLORIDE 0.9% 250 ML IV PRN (17:23)
[2020-05-09] MEDS ORDERED: ACETAMINOPHEN 325 MG TAB PO PRN (19:13)
[2020-05-09] MEDS: METOPROLOL SUCC 25MG EXT REL TAB PO SCH (21:20)
[2020-05-09] MEDS: GABAPENTIN 300 MG CAP PO SCH (21:20)
--- NOTE | 2020-05-09 22:09 | History & Physical Report ---
Date of Service May 09, 2020 Assessment & Plan (1) Anemia: -Admit to [facility] -Patient presenting from home with reports of difficulty urinating -In the ED, Hgb found to be 7.6. Rectal exam per ED provider revealed brown, heme positive stool. -Hgb has been downtrendin.0 01/09/2019, 10.0 04/11/2020 -Had CT ABD/pelvis at [facility] and reports following up with oncologist next week for findings. Further details unavailable at this time. Records requested. -Does not appear to be having active or acute bleeding at this time -Concern for malignancy -Hold Eliquis for now -P.o. PPI twice daily -1 unit PRBC -GI consult (2) Urinary retention: -Bladder scan revealed urinary retention > 1 L -Talbert placed in ED -Urology consult (3) Paroxysmal atrial fibrillation: -Also history of sinus node dysfunction s/p pacemaker -Rate controlled on metoprolol, will continue -Holding Eliquis as above (4) DVT prophylaxis: -SCDs due to anemia Admission and Anticipated Discharge Date Admission Date: May 09, 2020 History of Present Illness Chief Complaint: Difficulty urinating Primary Care Provider: Rito Ritesh 79-year-old male with PMH paroxysmal atrial fibrillation anticoagulated on Eliquis, sinus node dysfunction s/p pacemaker, and other problems listed below who presents to the ED for evaluation of difficulty urinating. Patient and are both somewhat poor historians. Reviewing what records are available, patient has had a 20 pound weight loss over the past couple months. He also has been found to have a downtrending hemoglobin being 10.0 on 04/11/2020, previously 14.0 01/09/2019. 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 He had reported difficulty urinating and was i nstructed to come to the ED if symptoms do not improve. Also, patient's reports that he had a CT abdomen done as an outpatient. Results are unavailable to me at this time. However reports an appointment with an oncologist next week for follow-up of findings. Patient denies chest pain or shortness of breath. No lightheadedness, dizziness, diaphoresis, syncopal events. No abdominal pain, nausea, vomiting, diarrhea. Denies bright red bleeding per rectum and dark tarry stools. No other recent illnesses, fevers, chills. In the ED, bladder scan showed >1L of urinary retention. Talbert catheter was placed and is now draining without difficulty. Labs show Hgb 7.6. Patient is hemodynamically stable. Rectal exam revealed brown, heme positive stool. Patient was given IV Protonix. Allergies Allergy/AdvReac Type Severity Reaction Status Date / Time No Known Allergies Allergy Unknown Verified 05/09/20 15:27 Home Medications Medication Instructions Recorded Confirmed Type gabapentin 300 mg PO BID 06/25/18 05/09/20 History metoprolol succinate 12.5 mg PO HS 03/31/19 05/09/20 History apixaban [Eliquis] 2.5 mg PO Q12H 05/09/20 05/09/20 History metoprolol succinate 25 mg PO DAILY 05/09/20 05/09/20 History pantoprazole 40 mg PO DAILY 05/09/20 05/09/20 History sucralfate 1 g PO TID PRN 05/09/20 05/09/20 History tramadol 50 mg PO UD PRN 05/09/20 05/09/20 History Past Med/Surg History Medical History CKD (chronic kidney disease), stage III GERD (gastroesophageal reflux disease) Pacemaker Paroxysmal atrial fibrillation Sinus node dysfunction Surgical History History of total right hip replacement Family History Other Family history non-contributory Social History Smoking Status: Never smoker Do You Dip or Chew Tobacco: No; Hx Alcohol Use: No Hx Substance Use: No Preferred Language: Hungarian Communication Ability: Effective Hearing Ability: Normal Senior Test Analyst Required: Voice Beliefs That Will Affect Care: None marital status: Current Living Situation: Spouse current occupational status: employed Other Information That Helps Us Care for You: No Feels Safe at Home: Yes Safety Concerns: Feels Safe At This Time Assistive Devices: Cane Review of Systems Review of Systems: ROS per HPI, all other systems reviewed and negative Physical Exam Constitutional: + thin Vitals as above Eyes: PERRL, conjunctivae normal, anicteric sclerae ENMT: external ear and nose normal, oropharynx normal Respiratory: normal respiratory effort, lungs clear to auscultation Cardiovascular: Rate/Rhythm: regular rate and regular rhythm Vessels: normal peripheral pulses Extremities: no edema Gastrointestinal (Abdomen): normal bowel sounds, soft, nontender, no hepatosplenomegaly Musculoskeletal: no cyanosis or clubbing, extremities motor strength 5/5 Skin: no rashes, warm and dry Neurologic: PERRL, EOMI, accommodation nl, no face palsy, no dysarthria Psychiatric: A+Ox3, euthymic affect Insight: + limited insight Forgetful Genitourinary: Talbert in place draining clear yellow urine Results & Data Results & Data ([facility]) Vital Signs (Past 12 Hours) Vital Signs Temp Pulse Pulse Resp BP BP Pulse Ox 05/09/20 21:11 36.7 C 77 20 130/43 L 100 05/09/20 20:41 36.4 C L 76 20 117/76 96 05/09/20 20:26 36.8 C 76 20 114/60 99 05/09/20 20:10 36.6 C 78 20 134/66 99 05/09/20 18:31 74 18 127/65 96 05/09/20 17:11 76 18 128/66 97 05/09/20 15:20 74 74 18 111/54 L 96 05/09/20 14:28 77 18 119/60 96 05/09/20 13:13 36.9 C 56 L 20 132/62 97 Laboratory Results Short CBC 05/09/20 05/09/20 Range/Units 15:21 15:23 WBC 7.01 (4.8-10.8) K/uL Hgb 7.6 L (14.0-18.0) g/dL Hct 23.7 L (42-52) % Plt Count 463 H (130-400) K/uL Creatinine 1.33 (0.6-1.4) mg/dl BMP 05/09/20 15:21 Sodium 130 L Potassium 4.4 Chloride 94 L Carbon Dioxide 27 BUN 24 H Creatinine 1.33 Glucose 108 H Calcium 8.7 Liver Function 05/09/20 Range/Units 15:21 Total Bilirubin 0.6 (0.2-1) mg/dl AST 42 H (15-37) U/L ALT 33 (12-78) U/L Alkaline Phosphatase 124 H (45-117) U/L Albumin 1.6 L (3.4-5.0) gm/dl Urine 05/09/20 Range/Units 14:30 Urine Color Dark Yellow Urine Appearance Clear (Clear) Urine pH 6.0 (4.5-7.5) Ur Specific [place] 1.011 (1.000-1.030) Urine Protein Trace H (Negative) Urine Glucose (UA) Negative (Negative) Code Status & VTE Plan Code Status Patient is a full code as per my discussion with him and his who is at the bedside. VTE Prophylaxis Plan VTE Prophylaxis will be ordered: Yes Supervising Physician Co-Signing Physician Notes Pt was seen and examined. Agreed with Christa ESPINOZA exam, assessment and plan. 79-year-old male with PMH paroxysmal atrial fibrillation anticoagulated on Eliquis, sinus node dysfunction s/p pacemaker presented to the ER for urinary retention and bladder discomfort. Patient and are poor historians. Pt said that he was at the gastroenterology office today for follow up on his GERD when he reported to have difficulty to urinate and was advised to go to the ER for eval. Pt said that he recently had a CT abdomen done. He said that pt lost about 20lbs in the last few months. In the ER talbert was placed and pt voided about 1.2 L urine. He said that he felt much better and did not have any bladder discomfort. Hgb on admission 7.6 and positive guaiac on admission. Will hold eliquis for now. Will do type and cross and transfuse 1 unit PRBC. Pt and agreed for blood transfusion and consent signed. Will continue PPI BID. Will consult Gastro for possible scope. Will monitor H/H. Will request the CT abdomen at [facility]. For the urinary retention, Will continue talbert catheter for now. Will consult urology. Continue monitor closely. MD Rosana
[2020-05-09 22:39] LABS: Appearance Urine Clear (Clear); Bacteria Urine Automated Negative (Negative); Bilirubin Urine Negative (Negative); Blood Urine 2+ (Negative); Color Urine Yellow; Glucose Urine UA Negative (Negative); Ketones Urine Negative (Negative); Leukocyte Esterase Urine Trace (Negative); Nitrite Urine Negative (Negative); Protein Urine Trace (Negative); Specific Gravity Urine 1.014 (1.000-1.030); Urobilinogen Urine Positive (Negative); pH Urine 6.5 (4.5-7.5)
[2020-05-10 06:45] LABS: Hematocrit (blood only) 25.8 % (42-52); Hemoglobin 8.4 g/dL (14.0-18.0); Mean Corpuscular Hemoglobin 27.1 pg (25-34); Mean Corpuscular Hgb Conc 32.6 g/dL (32-36); Mean Corpuscular Volume 83.2 fL (80-100); Mean Platelet Volume 8.2 fL (7.4-10.4); Platelet Count 469 K/uL (130-400); RDW Coefficient of Variation 15.9 % (11.5-14.5); RDW Standard Deviation 48.5 fL (36.4-46.3); White Blood Count 6.57 K/uL (4.8-10.8)
[2020-05-10 07:09] LABS: BUN Creatinine Ratio 15.2 (10-20); Calcium 8.9 mg/dl (8.5-10.1); Est GFR (African American) 56.7; Est GFR (Non-African American) 48.9; Potassium 4.3 mmol/L (3.5-5.1)
[2020-05-10] MEDS: METOPROLOL SUCC 25MG EXT REL TAB PO SCH ×2 (08:57→20:30)
[2020-05-10] MEDS: GABAPENTIN 300 MG CAP PO SCH ×2 (08:57→20:29)
[2020-05-10] MEDS: PANTOprazole 40 MG TAB PO SCH ×2 (08:57→20:29)
--- NOTE | 2020-05-10 09:15 | Hospitalist Progress Note ---
Date of Service May 10, 2020 Assessment & Plan (1) Anemia: -Admit to [facility] -Patient presenting from home with reports of difficulty urinating -In the ED, Hgb found to be 7.6. Rectal exam per ED provider revealed brown, heme positive stool. -Hgb has been downtrendin.0 01/09/2019, 10.0 04/11/2020 -Had CT ABD/pelvis at [facility] and reports following up with oncologist next week for findings. Further details unavailable at this time. Records requested. -Does not appear to be having active or acute bleeding at this time -Concern for malignancy -Hold Eliquis for now -P.o. PPI twice daily -1 unit PRBC -GI consult - plan for EGD and colonoscopy tmrw (05/11/20) (2) Urinary retention: -Bladder scan revealed urinary retention > 1 L -Leary placed in ED -Urology consult (3) Paroxysmal atrial fibrillation: -Also history of sinus node dysfunction s/p pacemaker -Rate controlled on metoprolol, will continue -Holding Eliquis as above (4) DVT prophylaxis: -SCDs due to anemia Admission and Anticipated Discharge Date Admission Date: May 09, 2020 Subjective Pt is sitting up in bed in NAD. Denies any chest pain, shortness of breath, abd. pain. Says "I'm here b/c I could not pee". Denies any blood in urine or stool. Urology and GI consulted, plan for EGD and colonoscopy tmrw Review of Systems Review of Systems: All systems reviewed & are unremarkable except as noted in HPI & below Constitutional: no fever and no chills Respiratory: no cough and no dyspnea Cardiovascular: no chest pain and no palpitations Gastrointestinal: no abdominal pain, no nausea and no vomiting Physical Exam Physical Exam: Constitutional: + thin Vitals as above Eyes: PERRL, EOMI, conjunctivae normal, anicteric sclerae ENMT: external ear and nose normal, oropharynx normal Respiratory: normal respiratory effort, lungs clear to auscultation Cardiovascular: Rate/Rhythm: regular rate and regular rhythm Vessels: normal peripheral pulses Extremities: no edema Gastrointestinal (Abdomen): normal bowel sounds, soft, nontender Musculoskeletal: no cyanosis or clubbing, extremities motor strength 5/5 Skin: no rashes, warm and dry Neurologic: PERRL, EOMI, no face palsy, no dysarthria Psychiatric: A+Ox3, euthymic affect Insight: + limited insight Forgetful Genitourinary: Leary in place draining clear yellow urine Results & Data Results & Data ([facility]) Vital Signs (Past 12 Hours) Vital Signs Temp Pulse Pulse Resp BP BP Pulse Ox 05/10/20 09:02 78 139/72 98 05/10/20 07:54 36.5 C 71 16 118/61 96 05/10/20 00:17 38.2 C H 87 20 125/72 95 05/09/20 21:40 36.7 C 76 20 138/82 100 Laboratory Results 05/10/20 05/10/20 05/09/20 Range/Units 06:09 06:09 22:05 WBC 6.57 (4.8-10.8) K/uL RBC 3.10 L (4.7-6.1) M/uL Hgb 8.4 L (14.0-18.0) g/dL Hct 25.8 L (42-52) % MCV 83.2 (80-100) fL MCH 27.1 (25-34) pg MCHC 32.6 (32-36) g/dL RDW Std Deviation 48.5 H (36.4-46.3) fL RDW Coeff of Maryanne 15.9 H (11.5-14.5) % Plt Count 469 H (130-400) K/uL MPV 8.2 (7.4-10.4) fL Immature Gran % (Auto) % Neut % (Auto) % Lymph % (Auto) % [place] % (Auto) % Eos % (Auto) % Baso % (Auto) % Neut # (Auto) (1.4-6.5) K/uL Lymph # (Auto) (1.2-3.4) K/uL [place] # (Auto) (0.11-0.59) K/uL Eos # (Auto) (0-0.5) K/uL Baso # (Auto) (0-0.2) K/uL Immature Gran # (Auto) (0.00-0.02) K/uL Hypochromasia Rouleaux Sodium 133 L (136-145) mmol/L Potassium 4.3 (3.5-5.1) mmol/L Chloride 97 L (98-107) mmol/L Carbon Dioxide 29 (21-32) mmol/L Anion Gap 7.0 (3-11) BUN 20 H (7-18) mg/dl Creatinine 1.35 (0.6-1.4) mg/dl Est Cr Clr Drug Dosing 37.0 ml/min Est GFR ( Amer) 56.7 Est GFR (Non-Af Amer) 48.9 BUN/Creatinine Ratio 15.2 (10-20) Glucose 111 H (70-99) mg/dl Calcium 8.9 (8.5-10.1) mg/dl Total Bilirubin (0.2-1) mg/dl AST (15-37) U/L ALT (12-78) U/L Alkaline Phosphatase (45-117) U/L Total Protein (6.4-8.2) gm/dl Albumin (3.4-5.0) gm/dl Globulin (2.5-4.0) gm/dl Albumin/Globulin Ratio (0.9-2) Urine Color Yellow Urine Appearance Clear (Clear) Urine pH 6.5 (4.5-7.5) Ur Specific [place] 1.014 (1.000-1.030) Urine Protein Trace H (Negative) Urine Glucose (UA) Negative (Negative) Urine Ketones Negative (Negative) Urine Blood 2+ H (Negative) Urine Nitrite Negative (Negative) Urine Bilirubin Negative (Negative) Urine Urobilinogen Positive H (Negative) Ur Leukocyte Esterase Trace H (Negative) Urine WBC (Auto) 5-10 H (0-5) /hpf Urine RBC (Auto) 10-30 H (0-4) /hpf U Hyaline Cast (Auto) 1-5 (0-5) /lpf U Epithel Cells (Auto) 10-20 H (0-5) /lpf Urine Bacteria (Auto) Negative (Negative) SARS-CoV-2 Ag (Rapid) (Negative) Blood Type Antibody Screen Crossmatch 05/09/20 05/09/20 05/09/20 Range/Units 17:25 16:29 15:23 WBC 7.01 (4.8-10.8) K/uL RBC 2.86 L (4.7-6.1) M/uL Hgb 7.6 L (14.0-18.0) g/dL Hct 23.7 L (42-52) % MCV 82.9 (80-100) fL MCH 26.6 (25-34) pg MCHC 32.1 (32-36) g/dL RDW Std Deviation 47.7 H (36.4-46.3) fL RDW Coeff of Maryanne 15.8 H (11.5-14.5) % Plt Count 463 H (130-400) K/uL MPV 8.0 (7.4-10.4) fL Immature Gran % (Auto) 0.4 % Neut % (Auto) 80.4 % Lymph % (Auto) 11.6 % [place] % (Auto) 7.3 % Eos % (Auto) 0.3 % Baso % (Auto) 0.0 % Neut # (Auto) 5.64 (1.4-6.5) K/uL Lymph # (Auto) 0.81 L (1.2-3.4) K/uL [place] # (Auto) 0.51 (0.11-0.59) K/uL Eos # (Auto) 0.02 (0-0.5) K/uL Baso # (Auto) 0.00 (0-0.2) K/uL Immature Gran # (Auto) 0.03 H (0.00-0.02) K/uL Hypochromasia Present Rouleaux 1+ Sodium (136-145) mmol/L Potassium (3.5-5.1) mmol/L Chloride (98-107) mmol/L Carbon Dioxide (21-32) mmol/L Anion Gap (3-11) BUN (7-18) mg/dl Creatinine (0.6-1.4) mg/dl Est Cr Clr Drug Dosing ml/min Est GFR ( Amer) Est GFR (Non-Af Amer) BUN/Creatinine Ratio (10-20) Glucose (70-99) mg/dl Calcium (8.5-10.1) mg/dl Total Bilirubin (0.2-1) mg/dl AST (15-37) U/L ALT (12-78) U/L Alkaline Phosphatase (45-117) U/L Total Protein (6.4-8.2) gm/dl Albumin (3.4-5.0) gm/dl Globulin (2.5-4.0) gm/dl Albumin/Globulin Ratio (0.9-2) Urine Color Urine Appearance (Clear) Urine pH (4.5-7.5) Ur Specific [place] (1.000-1.030) Urine Protein (Negative) Urine Glucose (UA) (Negative) Urine Ketones (Negative) Urine Blood (Negative) Urine Nitrite (Negative) Urine Bilirubin (Negative) Urine Urobilinogen (Negative) Ur Leukocyte Esterase (Negative) Urine WBC (Auto) (0-5) /hpf Urine RBC (Auto) (0-4) /hpf U Hyaline Cast (Auto) (0-5) /lpf U Epithel Cells (Auto) (0-5) /lpf Urine Bacteria (Auto) (Negative) SARS-CoV-2 Ag (Rapid) Negative (Negative) Blood Type B Positive Antibody Screen NEGATIVE Crossmatch See Detail 05/09/20 05/09/20 Range/Units 15:21 14:30 WBC (4.8-10.8) K/uL RBC (4.7-6.1) M/uL Hgb (14.0-18.0) g/dL Hct (42-52) % MCV (80-100) fL MCH (25-34) pg MCHC (32-36) g/dL RDW Std Deviation (36.4-46.3) fL RDW Coeff of Maryanne (11.5-14.5) % Plt Count (130-400) K/uL MPV (7.4-10.4) fL Immature Gran % (Auto) % Neut % (Auto) % Lymph % (Auto) % [place] % (Auto) % Eos % (Auto) % Baso % (Auto) % Neut # (Auto) (1.4-6.5) K/uL Lymph # (Auto) (1.2-3.4) K/uL [place] # (Auto) (0.11-0.59) K/uL Eos # (Auto) (0-0.5) K/uL Baso # (Auto) (0-0.2) K/uL Immature Gran # (Auto) (0.00-0.02) K/uL Hypochromasia Rouleaux Sodium 130 L (136-145) mmol/L Potassium 4.4 (3.5-5.1) mmol/L Chloride 94 L (98-107) mmol/L Carbon Dioxide 27 (21-32) mmol/L Anion Gap 9.0 (3-11) BUN 24 H (7-18) mg/dl Creatinine 1.33 (0.6-1.4) mg/dl Est Cr Clr Drug Dosing 37.6 ml/min Est GFR ( Amer) 57.7 Est GFR (Non-Af Amer) 49.8 BUN/Creatinine Ratio 17.8 (10-20) Glucose 108 H (70-99) mg/dl Calcium 8.7 (8.5-10.1) mg/dl Total Bilirubin 0.6 (0.2-1) mg/dl AST 42 H (15-37) U/L ALT 33 (12-78) U/L Alkaline Phosphatase 124 H (45-117) U/L Total Protein 8.6 H (6.4-8.2) gm/dl Albumin 1.6 L (3.4-5.0) gm/dl Globulin 7.0 H (2.5-4.0) gm/dl Albumin/Globulin Ratio 0.2 L (0.9-2) Urine Color Dark Yellow Urine Appearance Clear (Clear) Urine pH 6.0 (4.5-7.5) Ur Specific [place] 1.011 (1.000-1.030) Urine Protein Trace H (Negative) Urine Glucose (UA) Negative (Negative) Urine Ketones Negative (Negative) Urine Blood Negative (Negative) Urine Nitrite Negative (Negative) Urine Bilirubin Negative (Negative) Urine Urobilinogen Negative (Negative) Ur Leukocyte Esterase Negative (Negative) Urine WBC (Auto) 1-5 (0-5) /hpf Urine RBC (Auto) 0-4 (0-4) /hpf U Hyaline Cast (Auto) 1-5 (0-5) /lpf U Epithel Cells (Auto) 5-10 H (0-5) /lpf Urine Bacteria (Auto) Negative (Negative) SARS-CoV-2 Ag (Rapid) (Negative) Blood Type Antibody Screen Crossmatch Medications Administered Current Inpatient Medications Acetaminophen (Acetaminophen 325 Mg Tab) 650 mg PO Q4H PRN PRN Reason: pain/fever Stop: 06/08/20 19:12 Gabapentin (Gabapentin 300 Mg Cap) 300 mg PO BID DEWEY Stop: 06/08/20 20:59 Last Admin: 05/10/20 08:57 Dose: 300 mg Documented by: Metoprolol Succinate (Metoprolol Succ 25mg Ext Rel Tab) 25 mg PO DAILY DEWEY Stop: 06/09/20 08:59 Last Admin: 05/10/20 08:57 Dose: 25 mg Documented by: Metoprolol Succinate (Metoprolol Succ 25mg Ext Rel Tab) 12.5 mg PO HS [facility] Stop: 06/08/20 20:59 Last Admin: 05/09/20 21:20 Dose: 12.5 mg Documented by: Pantoprazole Sodium (Pantoprazole 40 Mg Tab) 40 mg PO BID [facility] Stop: 06/09/20 08:59 Last Admin: 05/10/20 08:57 Dose: 40 mg Documented by:
--- NOTE | 2020-05-10 11:03 | Urology Consultation ---
Date of Consultation May 10, 2020 Assessment & Plan (1) Urinary retention: Patient admitted with acute illness. Found also to have greater than 1 L acute urinary retention. Catheter is placed and tolerated. Patient is mildly dealing with some issues related to membrane exact series of events from the acute illness. At first he did not claim to have any major urinary issues however after further discussion does have moderate to significant bothersome issues with lower urinary tract problems in the past. Has not had a previous episode of retention that he can remember. Does not have any new bleeding or major infection. Has not seen urology. No considerable family history of issues. Discussed multifactorial contribution of retention. Discussed deconditioned state. Discussed underlying lower urinary tract issues. At this point due to the large volume retention over recommend at least 5 to 7 days of Leary decompression with plans for catheter removal either prior to discharge or as outpatient. Will very likely need further work-up including possibly outpatient cystoscopy. We will continue with supportive care hydration MRN. Will consider trialing medication for prostate if patient is able to tolerate though may need to be discussed further with patient and family as an outpatient as patient has mixed feelings related to his urine function prior. Patient currently medical surgical history is reviewed and summarized above. All available/pertinent imaging was reviewed interpreted by myself. (2) Anemia: History of Present Illness Attending Physician: Elliot Waterman MD History of Present Illness Consult for urinary issues with incomplete emptying and possible retention. Patient is admitted with anemia and illness. Patient has mild to moderate discomfort in pelvis and groin going to back and side in waves. Is dealing with acute illness. Has been deconditioned from this. Has decreased mobility significantly with acute issues. Patient has not had complete return to normal bowel function. Has had some minor urinary issues in the past. Denies bleeding. No severe nausea or vomiting. Currently no fevers. No significant family history of major issues Discussed with patient multifactorial nature of urinary issues, retention, and incomplete bladder emptying. Discussed concerns and issues. Discussed decr eased mobility and trouble voiding. Discussed issues related to deconditioning and weakened state. Discussed possibility that patient had more moderate to severe issues and with the acute illness and deconditioning these issues became more prevalent and obvious. Discussed bowel function and possible issues related to decrease in function and its relation to other pelvic organs and systems. Discussed different medications, will use during hospitalization and their effect on ability to empty. Allergies Allergy/AdvReac Type Severity Reaction Status Date / Time No Known Allergies Allergy Unknown Verified 05/09/20 15:27 Home Medications Medication Instructions Recorded Confirmed Type gabapentin 300 mg PO BID 06/25/18 05/09/20 History metoprolol succinate 12.5 mg PO HS 03/31/19 05/09/20 History apixaban [Eliquis] 2.5 mg PO Q12H 05/09/20 05/09/20 History metoprolol succinate 25 mg PO DAILY 05/09/20 05/09/20 History pantoprazole 40 mg PO DAILY 05/09/20 05/09/20 History sucralfate 1 g PO TID PRN 05/09/20 05/09/20 History tramadol 50 mg PO UD PRN 05/09/20 05/09/20 History Patient History Medical History CKD (chronic kidney disease), stage III GERD (gastroesophageal reflux disease) Pacemaker Paroxysmal atrial fibrillation Sinus node dysfunction Surgical History History of total right hip replacement Family History Other Family history non-contributory Social History Smoking Status: Never smoker Do You Dip or Chew Tobacco: No; Hx Alcohol Use: No Hx Substance Use: No Preferred Language: Albanian Communication Ability: Effective Hearing Ability: Normal Circus 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 Advanced age. Chronic Medical issues. HEENT: Normocephalic. Inspection normal. Cranial Nerves 2-12 Grossly intact with some hearing issues. Normal inspection of face. Normal inspection of neck. Psychologic: Normal affect. Baseline issues with memory. Respiratory: Nonlabored. No use of accessory muscles. No tachypnea or dyspnea. Cardiovascular: No tachycardia Skin: [place] and Dry. No rashes or visible lesions. Extremities/Lymphatics: Minor Mobility issues. Slow Gait. Abdomen: Soft Non-distended. No rebound or guarding. : Leary in place draining clear yellow urine Results & Data ([facility]) Vital Signs (Past 12 Hours) Vital Signs Temp Pulse Resp BP Pulse Ox 05/10/20 09:02 78 139/72 98 05/10/20 07:54 36.5 C 71 16 118/61 96 05/10/20 00:17 38.2 C H 87 20 125/72 95 PG Care Time/CCT Total # of Minutes Spent Total Time Spent with Patient: Total time spent is greater than 50% in coordination of care (as documented) at patient's floor/unit and/or counseling patient: Coding Level of Care Code 74756 Initial Inpt Care Lvl 3 Diagnoses Urinary retention R33.9 Anemia D64.9
--- NOTE | 2020-05-10 12:30 | Gastrointestinal Consultation ---
Date of Consultation May 10, 2020 Assessment & Plan (1) Anemia: possible PUD vs. diverticular bleeding or malignancy. Recs: -EGD and colonoscopy tomorrow morning to evaluate - clear liquid diet today, NPO post midnight except for prep -start prep at 6 pm, complete by 3 am. -protonix 40 mg IV BID Thank you for allowing me to participate in the care of this patient. (2) Heme positive stool: History of Present Illness Attending Physician: Elliot Waterman MD 79-year-old male with PMH paroxysmal atrial fibrillation anticoagulated on Eliquis, sinus node dysfunction s/p pacemaker, who presented to the ED for evaluation of difficulty urinating. Found to have severe anemia, with significant decrease in hgb from normal to around 8. stool hemoccult positive. He denies any fatigue, dizziness, abd pains, hematochezia, epistaxis, hematemesis. Patient has had a 20 pound weight loss over the past couple months labs reviewed, VSS. on protonix currently. Allergies Allergy/AdvReac Type Severity Reaction Status Date / Time No Known Allergies Allergy Unknown Verified 05/09/20 15:27 Home Medications Medication Instructions Recorded Confirmed Type gabapentin 300 mg PO BID 06/25/18 05/09/20 History metoprolol succinate 12.5 mg PO HS 03/31/19 05/09/20 History apixaban [Eliquis] 2.5 mg PO Q12H 05/09/20 05/09/20 History metoprolol succinate 25 mg PO DAILY 05/09/20 05/09/20 History pantoprazole 40 mg PO DAILY 05/09/20 05/09/20 History sucralfate 1 g PO TID PRN 05/09/20 05/09/20 History tramadol 50 mg PO UD PRN 05/09/20 05/09/20 History Patient History Medical History CKD (chronic kidney disease), stage III GERD (gastroesophageal reflux disease) Pacemaker Paroxysmal atrial fibrillation Sinus node dysfunction Surgical History History of total right hip replacement Family History Other Family history non-contributory Social History Smoking Status: Never smoker Do You Dip or Chew Tobacco: No; Hx Alcohol Use: No Hx Substance Use: No Preferred Language: Yoruba Communication Ability: Effective Hearing Ability: Normal Adult High School 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 Required: Voice Beliefs That Will Affect Care: None marital status: Current Living Situation: Spouse current occupational status: employed Other Information That Helps Us Care for You: No Feels Safe at Home: Yes Safety Concerns: Feels Safe At This Time Assistive Devices: Cane Review of Systems Constitutional: no fever, no chills and no weight loss Eyes: as per Subjective / HPI Ear, Nose, Mouth, Throat: as per Subjective / HPI Respiratory: no dyspnea and no dyspnea on exertion Cardiovascular: no chest pain and no palpitations Gastrointestinal: as per Subjective / HPI Musculoskeletal: no joint pain and no swelling Integumentary: no rash and no lesions Neurologic: no numbness and no paresthesia Psychiatric: no depression and no anxiety Endocrine: no fatigue Hematologic / Lymphatic: no easy bleeding and no easy bruising Physical Exam Constitutional: WD/WN, vitals as above Eyes: EOM intact bilaterally Neck: normal visual inspection Respiratory: normal respiratory effort, lungs clear to auscultation Cardiovascular: RRR, no murmur, no edema Gastrointestinal (Abdomen): Inspection/Auscultation: abdomen normal to inspection; abdomen not distended Percussion/Palpation: abdomen soft; abdomen nontender and no hepatosplenomegaly Musculoskeletal: Extremities: no cyanosis Gait: normal gait Skin: no rashes, warm and dry Neurologic: moves all extremities Psychiatric: A+Ox3, euthymic affect Results & Data ([facility]) Vital Signs (Past 12 Hours) Vital Signs Temp Pulse Resp BP Pulse Ox 05/10/20 09:02 78 139/72 98 05/10/20 07:54 36.5 C 71 16 118/61 96 PG Care Time/CCT Total # of Minutes Spent Total Time Spent with Patient: Total time spent is greater than 50% in coordination of care (as documented) at patient's floor/unit and/or counseling patient: Coding Level of Care Code 89635 Initial Inpt Care Lvl 3 Diagnoses Anemia D64.9 Heme positive stool R19.5
[2020-05-10] MEDS ORDERED: LAVAGE SOLUTION 4000ML PO SCH ×2 (18:00)
[2020-05-11 00:21] LABS: Hematocrit (blood only) 27.5 % (42-52); Hemoglobin 8.6 g/dL (14.0-18.0)
[2020-05-11 06:16] LABS: Hematocrit (blood only) 27.4 % (42-52); Hemoglobin 8.9 g/dL (14.0-18.0); Mean Corpuscular Hemoglobin 27.2 pg (25-34); Mean Corpuscular Hgb Conc 32.5 g/dL (32-36); Mean Corpuscular Volume 83.8 fL (80-100); Mean Platelet Volume 8.2 fL (7.4-10.4); Platelet Count 454 K/uL (130-400); RDW Coefficient of Variation 16.2 % (11.5-14.5); RDW Standard Deviation 49.4 fL (36.4-46.3); Red Blood Count 3.27 M/uL (4.7-6.1); White Blood Count 6.69 K/uL (4.8-10.8)
[2020-05-11 06:56] LABS: BUN Creatinine Ratio 12.1 (10-20); Creatinine Clr Calc Pharmacy 37.6 ml/min; Est GFR (African American) 57.7; Est GFR (Non-African American) 49.8; Potassium 4.1 mmol/L (3.5-5.1)
--- NOTE | 2020-05-11 08:06 | History & Physical Bridge Note ---
Date of Service May 11, 2020 History & Physical Bridge Note I have examined the patient, reviewed the History & Physical and in the interval since the performance of the History & Physical I have noted the following changes of clinical significance: no changes noted Proceed with EGD. proceed with colonoscopy. risks/benefits and procedure discussed with patient, who agrees to proceed
--- NOTE | 2020-05-11 08:15 | Hospitalist Progress Note ---
Date of Service May 11, 2020 Assessment & Plan (1) Anemia: -Admit to [facility] -Patient presenting from home with reports of difficulty urinating -In the ED, Hgb found to be 7.6. Rectal exam per ED provider revealed brown, heme positive stool. -Hgb has been downtrendin.0 01/09/2019, 10.0 04/11/2020 -Had CT ABD/pelvis at [facility] and reports following up with oncologist next week for findings. Further details unavailable at this time. Records requested. -Does not appear to be having active or acute bleeding at this time -Concern for malignancy -Hold Eliquis for now -P.o. PPI twice daily -1 unit PRBC -GI consult - s/p EGD and colonoscopy (05/11/20) - Esophagitis LA grade A, biopsied. 2 polyps removed, clips placed. External hemorrhoids. Recommend H&H daily, Protonix 40 mg daily, Resume Eliquis 05/13 if stable. (2) Urinary retention: -Bladder scan revealed urinary retention > 1 L -Leary placed in ED -Urology consult - pt seen while inpt. He will likely need further work-up as outpt. (3) Paroxysmal atrial fibrillation: -Also history of sinus node dysfunction s/p pacemaker -Rate controlled on metoprolol, will continue -Holding Eliquis as above (4) DVT prophylaxis: -SCDs due to anemia Admission and Anticipated Discharge Date Admission Date: May 09, 2020 Subjective Pt seen in follow up of anemia and urinary retention, other med. problems. Pt now s/p EGD and colonoscopy. Pt laying in bed in NAD. Denies any chest pain, shortness of breath, abd. pain. Review of Systems Review of Systems: All systems reviewed & are unremarkable except as noted in HPI & below Constitutional: no fever and no chills Respiratory: no cough and no dyspnea Cardiovascular: no chest pain and no palpitations Gastrointestinal: no abdominal pain, no nausea and no vomiting Physical Exam Physical Exam: Constitutional: + thin Vitals as above Eyes: PERRL, EOMI, conjunctivae normal, anicteric sclerae ENMT: external ear and nose normal, oropharynx normal Respiratory: normal respiratory effort, lungs clear to auscultation Cardiovascular: Rate/Rhythm: regular rate and regular rhythm Vessels: normal peripheral pulses Extremities: no edema Gastrointestinal (Abdomen): normal bowel sounds, soft, nontender Musculoskeletal: no cyanosis or clubbing, extremities motor strength 5/5 Skin: no rashes, warm and dry Neurologic: PERRL, EOMI, no face palsy, no dysarthria Psychiatric: A+Ox3, euthymic affect Insight: + limited insight Forgetful Genitourinary: Leary in place draining clear yellow urine Results & Data Results & Data ([facility]) Vital Signs (Past 12 Hours) Vital Signs Temp Pulse Resp BP Pulse Ox 05/11/20 07:38 36.8 C 84 18 121/61 94 05/10/20 23:32 36.5 C 80 18 93/45 L 97 05/10/20 20:33 37.3 C 84 16 110/52 L 93 Laboratory Results 05/11/20 05/11/20 05/11/20 Range/Units 07:24 07:24 06:04 WBC (4.8-10.8) K/uL RBC (4.7-6.1) M/uL Hgb (14.0-18.0) g/dL Hct (42-52) % MCV (80-100) fL MCH (25-34) pg MCHC (32-36) g/dL RDW Std Deviation (36.4-46.3) fL RDW Coeff of Maryanne (11.5-14.5) % Plt Count (130-400) K/uL MPV (7.4-10.4) fL Sodium 133 L (136-145) mmol/L Potassium 4.1 (3.5-5.1) mmol/L Chloride 98 (98-107) mmol/L Carbon Dioxide 26 (21-32) mmol/L Anion Gap 9.0 (3-11) BUN 16 (7-18) mg/dl Creatinine 1.33 (0.6-1.4) mg/dl Est Cr Clr Drug Dosing 37.6 ml/min Est GFR ( Amer) 57.7 Est GFR (Non-Af Amer) 49.8 BUN/Creatinine Ratio 12.1 (10-20) Glucose 101 H (70-99) mg/dl Calcium 9.0 (8.5-10.1) mg/dl COVID-19 Eval [facility] SARS-CoV-2, RNA, NAAT NEGATIVE (NEGATIVE) 05/11/20 05/11/20 Range/Units 06:04 00:09 WBC 6.69 (4.8-10.8) K/uL RBC 3.27 L (4.7-6.1) M/uL Hgb 8.9 L 8.6 L (14.0-18.0) g/dL Hct 27.4 L 27.5 L (42-52) % MCV 83.8 (80-100) fL MCH 27.2 (25-34) pg MCHC 32.5 (32-36) g/dL RDW Std Deviation 49.4 H (36.4-46.3) fL RDW Coeff of Maryanne 16.2 H (11.5-14.5) % Plt Count 454 H (130-400) K/uL MPV 8.2 (7.4-10.4) fL Sodium (136-145) mmol/L Potassium (3.5-5.1) mmol/L Chloride (98-107) mmol/L Carbon Dioxide (21-32) mmol/L Anion Gap (3-11) BUN (7-18) mg/dl Creatinine (0.6-1.4) mg/dl Est Cr Clr Drug Dosing ml/min Est GFR ( Amer) Est GFR (Non-Af Amer) BUN/Creatinine Ratio (10-20) Glucose (70-99) mg/dl Calcium (8.5-10.1) mg/dl COVID-19 Eval Order SARS-CoV-2, RNA, NAAT (NEGATIVE) Medications Administered Current Inpatient Medications Acetaminophen (Acetaminophen 325 Mg Tab) 650 mg PO Q4H PRN PRN Reason: pain/fever Stop: 06/08/20 19:12 Gabapentin (Gabapentin 300 Mg Cap) 300 mg PO BID [facility] Stop: 06/08/20 20:59 Last Admin: 05/10/20 20:29 Dose: 300 mg Documented by: Metoprolol Succinate (Metoprolol Succ 25mg Ext Rel Tab) 25 mg PO DAILY [facility] Stop: 06/09/20 08:59 Last Admin: 05/10/20 08:57 Dose: 25 mg Documented by: Metoprolol Succinate (Metoprolol Succ 25mg Ext Rel Tab) 12.5 mg PO HS [facility] Stop: 06/08/20 20:59 Last Admin: 05/10/20 20:30 Dose: 12.5 mg Documented by: Pantoprazole Sodium (Pantoprazole 40 Mg Tab) 40 mg PO BID [facility] Stop: 06/09/20 08:59 Last Admin: 05/10/20 20:29 Dose: 40 mg Documented by:
--- NOTE | 2020-05-11 10:09 | Anesthesiology Consultation ---
Date of Service May 11, 2020 Assessment & Plan ASA ASA3 Proposed Anesthesia Anesthesia Type: MAC Risk / Benefits Reviewed With: PT / POA / Parent / Guardian, Accepts Plan and Informed Consent Obtained History Surgery Operation Date: 05/11/20 10:00 Proposed Procedures p Esophagogastroduodenoscopy - Andrea Torres MD s Colonoscopy - Andrea Torres MD Height/Weight Height: 5 ft 7 in Weight: 61 kg Allergies Allergy/AdvReac Type Severity Reaction Status Date / Time No Known Allergies Allergy Unknown Verified 05/09/20 15:27 Medications Home Medications Medication Instructions Recorded Confirmed Last Taken gabapentin 300 mg PO BID 06/25/18 05/09/20 05/09/20 metoprolol succinate 12.5 mg PO HS 03/31/19 05/09/20 05/09/20 apixaban [Eliquis] 2.5 mg PO Q12H 05/09/20 05/09/20 05/09/20 metoprolol succinate 25 mg PO DAILY 05/09/20 05/09/20 Unknown pantoprazole 40 mg PO DAILY 05/09/20 05/09/20 Unknown sucralfate 1 g PO TID PRN 05/09/20 05/09/20 Unknown tramadol 50 mg PO UD PRN 05/09/20 05/09/20 Unknown Active Medications Generic Name Dose Route Start Last Admin Trade Name Freq PRN Reason Stop Dose Admin Gabapentin 300 mg 05/09/20 21:00 05/10/20 20:29 Gabapentin 300 Mg Cap PO 06/08/20 20:59 300 mg BID [facility] Administration Metoprolol Succinate 25 mg 05/10/20 09:00 05/10/20 08:57 Metoprolol Succ 25mg Ext Rel Tab PO 06/09/20 08:59 25 mg DAILY [facility] Administration Metoprolol Succinate 12.5 mg 05/09/20 21:00 05/10/20 20:30 Metoprolol Succ 25mg Ext Rel Tab PO 06/08/20 20:59 12.5 mg HS [facility] Administration Pantoprazole Sodium 40 mg 05/10/20 09:00 05/10/20 20:29 Pantoprazole 40 Mg Tab PO 06/09/20 08:59 40 mg BID [facility] Administration NPO Date Last Intake of Fluids: 05/08/20 Time Last Intake of Fluids: 23:59 Date Last Intake of Solids: 05/08/20 Time Last Intake of Solids: 23:59 Past Medical History Medical History CKD (chronic kidney disease), stage III GERD (gastroesophageal reflux disease) Pacemaker Paroxysmal atrial fibrillation Sinus node dysfunction Exercise / Class Metabolic Activity II 4-5 Yardwork/Stairs/Walk up hill Past Family History Family History Other Family history non-contributory Past Surgical History Surgical History History of total right hip replacement Past Anesthesia History No Hx of Anesthesia Complications and No Family Hx of Anesthesia Complications History of PONV No Hx of PONV and No Hx of Motion Sickness Social History Smoking Status: Never smoker Do You Dip or Chew Tobacco: No Hx Alcohol Use: No Hx Substance Use: No substance use type: does not use Review of Systems denies fever/cough/ colds/ chest pain/ SOB/ KANNAN denies KANNAN Physical Exam Vital Signs Last Vital Signs Temp 36.8 C 05/11/20 07:38 Pulse 84 05/11/20 07:38 Resp 18 05/11/20 07:38 BP 121/61 05/11/20 07:38 Pulse Ox 94 05/11/20 07:38 ENMT Mouth: no TMJ abnormality and no dentition abnormality Thyromental Distance: > or= 3.5 Finger Breadths Mallampati Class: II Neck neck extension not limited Respiratory normal respiratory effort; no respiratory distress Auscultation: lungs clear to auscultation bilaterally Cardiovascular Rate/Rhythm: regular rate and regular rhythm Neurologic moves all extremities Psychiatric Orientation: alert and oriented x 3 Testing Laboratory Results 05/11/20 06:04 05/11/20 06:04 Urine Color Yellow 05/09/20 22:05 Urine Appearance Clear (Clear) 05/09/20 22:05 Urine pH 6.5 (4.5-7.5) 05/09/20 22:05 Ur Specific [place] 1.014 (1.000-1.030) 05/09/20 22:05 Urine Protein Trace (Negative) H 05/09/20 22:05 Urine Glucose (UA) Negative (Negative) 05/09/20 22:05 Urine Ketones Negative (Negative) 05/09/20 22:05 Urine Nitrite Negative (Negative) 05/09/20 22:05 Ur Leukocyte Esterase Trace (Negative) H 05/09/20 22:05 Urine WBC (Auto) 5-10 /hpf (0-5) H 05/09/20 22:05 Urine RBC (Auto) 10-30 /hpf (0-4) H 05/09/20 22:05 U Hyaline Cast (Auto) 1-5 /lpf (0-5) 05/09/20 22:05 U Epithel Cells (Auto) 10-20 /lpf (0-5) H 05/09/20 22:05 Urine Bacteria (Auto) Negative (Negative) 05/09/20 22:05 Blood Type B Positive 05/09/20 16:29 Antibody Screen NEGATIVE 05/09/20 16:29
[2020-05-11] MEDS ORDERED: ePHEDrine sulfate 50 MG/ML AMP IV PRN (10:26)
[2020-05-11] MEDS ORDERED: ATROPINE SULFATE 0.1 MG/ML 10ML SYR IV PRN (10:26)
--- NOTE | 2020-05-11 11:09 | GI REPORT ---
Patient Name: Ermelinda Blandon Procedure Date: 05/11/2020 10:30 AM Date of : 1940 Admit Type: Inpatient Age: 79 Gender: Male Attending MD: Andrea Torres MD Procedure: Upper GI endoscopy Providers: Andrea Torres MD Referring MD: Referred Self Indications: Unexplained iron deficiency anemia Medicines: Monitored Anesthesia Care Complications: No immediate complications. Estimated blood loss: None. Estimated Blood Loss: Estimated blood loss: none. Procedure: Pre-Anesthesia Assessment: - Prior Anticoagulants: The patient has taken no previous anticoagulant or antiplatelet agents. - ASA Grade Assessment: II - A patient with mild systemic disease. After obtaining informed consent, the endoscope was passed under direct vision. Throughout the procedure, the patient's blood pressure, pulse, and oxygen saturations were monitored continuously. The Endoscope was introduced through the mouth, and advanced to the second part of duodenum. The upper GI endoscopy was accomplished without difficulty. The patient tolerated the procedure well. Findings: LA Grade A (one or more mucosal breaks less than 5 mm, not extending between tops of 2 mucosal folds) esophagitis with no bleeding was found. Biopsies were taken with a cold forceps for histology. Estimated blood loss: none. The entire examined stomach was normal. The duodenal bulb and second portion of the duodenum were normal. Impression: - LA Grade A esophagitis. Biopsied. - Normal stomach. - Normal duodenal bulb and second portion of the duodenum. Recommendation: - Return patient to [facility] for ongoing care. - Advance diet as tolerated today. - Await pathology results. Andrea Torres MD 05/11/2020 11:08:50 AM This report has been signed electronically. Note Initiated On: 05/11/2020 10:30 AM Number of Addenda: 0 I attest to the content of the Intraoperative Record and orders documented therein, exceptions below {[id number]}
--- NOTE | 2020-05-11 11:24 | GI REPORT ---
Patient Name: Ermelinda Blandon Procedure Date: 05/11/2020 10:41 AM Date of : 1940 Admit Type: Inpatient Age: 79 Gender: Male Attending MD: Andrea Torres MD Procedure: Colonoscopy Providers: Andrea Torres MD Referring MD: Referred Self Indications: Unexplained iron deficiency anemia, Weight loss Medicines: Monitored Anesthesia Care Complications: No immediate complications. Estimated blood loss: None. Estimated Blood Loss: Estimated blood loss: none. Procedure: Pre-Anesthesia Assessment: - Prior Anticoagulants: The patient has taken no previous anticoagulant or antiplatelet agents. - ASA Grade Assessment: II - A patient with mild systemic disease. After I obtained informed consent, the scope was passed under direct vision. Throughout the procedure, the patient's blood pressure, pulse, and oxygen saturations were monitored continuously. The scope was introduced through the anus and advanced to the cecum, identified by appendiceal orifice and ileocecal valve. The colonoscopy was performed without difficulty. The patient tolerated the procedure well. The quality of the bowel preparation was fair. Findings: Two sessile polyps were found in the ascending colon. The polyps were 6 mm in size. These polyps were removed with a cold snare. Resection and retrieval were complete. To prevent bleeding after the polypectomy, two hemostatic clips were successfully placed. There was no bleeding at the end of the procedure. Estimated blood loss: none. Multiple small and large-mouthed diverticula were found in the sigmoid colon and descending colon. External hemorrhoids were found. The hemorrhoids were medium-sized. A 3 mm polyp was found in the sigmoid colon. The polyp was sessile. The polyp was removed with a cold biopsy forceps. Resection and retrieval were complete. Estimated blood loss: none. Impression: - Preparation of the colon was fair. - Two 6 mm polyps in the ascending colon, removed with a cold snare. Resected and retrieved. Clips were placed. - Diverticulosis in the sigmoid colon and in the descending colon. - External hemorrhoids. Recommendation: - Return patient to [facility] for ongoing care. - Advance diet as tolerated today. - Await pathology results. - can resume eliquis on 05/13 if stable Andrea Torres MD 05/11/2020 11:24:10 AM This report has been signed electronically. Note Initiated On: 05/11/2020 10:41 AM Number of Addenda: 0 I attest to the content of the Intraoperative Record and orders documented therein, exceptions below {[id number]}
--- NOTE | 2020-05-11 11:26 | Procedure Note ---
Procedure Note Date of Service May 11, 2020 brief procedure/operative note: EGD Colonoscopy findings: esophagitis, colon polyps removed, diverticulosis, hemorrhoids. No masses. Recs: --protonix 40 mg daily --f/u path results --can resume eliquis on 05/13 if stable -trend H/H daily -diet as tolerated Andrea Torres MD Gastroenterology Coding
--- NOTE | 2020-05-11 11:46 | Anesthesiology Progress Note ---
Date of Service May 11, 2020 Anesthesia Post Procedure Vital Signs Vital Signs: Temp Pulse Pulse Resp BP BP Pulse Ox 05/11/20 11:40 36.6 C 69 17 98/52 L 96 05/11/20 11:30 36.6 C 73 17 91/46 L 97 05/11/20 11:20 65 20 90/51 L 99 05/11/20 11:12 37.3 C 70 20 87/76 L 96 05/11/20 07:38 36.8 C 84 18 121/61 94 05/10/20 23:32 36.5 C 80 18 93/45 L 97 05/10/20 20:33 37.3 C 84 16 110/52 L 93 05/10/20 14:57 36.5 C 70 16 152/73 H 92 Transfer of Care Handoff Completed per policy Notes Mental Status: alert / awake / arousable and participated in evaluation Patient Amnestic to Procedure: Yes Nausea / Vomiting: adequately controlled Pain: adequately controlled Airway Patency, RR, SpO2: stable & adequate BP & HR: stable & adequate Hydration State: stable & adequate Anesthetic Complications: no major complications apparent and Pt Satisfied with anesthetic care
[2020-05-11] MEDS: PANTOprazole 40 MG TAB PO SCH ×2 (11:59→20:39)
[2020-05-11] MEDS: GABAPENTIN 300 MG CAP PO SCH ×2 (11:59→20:39)
[2020-05-11] MEDS: METOPROLOL SUCC 25MG EXT REL TAB PO SCH ×2 (11:59→20:39)
[2020-05-12 08:07] LABS: Hematocrit (blood only) 30.3 % (42-52); Hemoglobin 9.6 g/dL (14.0-18.0)
[2020-05-12] MEDS: METOPROLOL SUCC 25MG EXT REL TAB PO SCH ×2 (08:14→21:32)
[2020-05-12] MEDS: PANTOprazole 40 MG TAB PO SCH ×2 (08:14→21:31)
[2020-05-12] MEDS: GABAPENTIN 300 MG CAP PO SCH ×2 (08:14→21:31)
[2020-05-12 08:36] LABS: BUN Creatinine Ratio 11.3 (10-20); Calcium 9.7 mg/dl (8.5-10.1); Creatinine Clr Calc Pharmacy 34.2 ml/min; Est GFR (African American) 51.5; Est GFR (Non-African American) 44.5
--- NOTE | 2020-05-12 09:03 | Hospitalist Progress Note ---
Date of Service May 12, 2020 Assessment & Plan (1) Anemia: -Admit to [facility] -Patient presenting from home with reports of difficulty urinating -In the ED, Hgb found to be 7.6. Rectal exam per ED provider revealed brown, heme positive stool. -Hgb has been downtrendin.0 01/09/2019, 10.0 04/11/2020 -Had CT ABD/pelvis at [facility] and reports following up with oncologist next week for findings. Further details unavailable at time of admission. Records requested. Outside CT report obtained and reviewed: 1.Large destructive soft tissue mass lesion of the right ilium. Differential dg. include metastatic disease, myeloma and lymphoma. Primary bone tumor is less likely statistically. Recommend oncologic evaluation and tissue sampling. 2. Enlarged right internal iliac chain lymph node measures 1.1. cm 3. Enlarged prostate -Does not appear to be having active or acute bleeding at this time -Concern for malignancy -Held Eliquis for now -P.o. PPI twice daily -1 unit PRBC -GI consult - s/p EGD and colonoscopy (05/11/20) - Esophagitis LA grade A, biopsied. 2 sessile polyps found in colon removed, clips placed. External hemorrhoids. Recommend H&H daily, Protonix 40 mg daily, Resume Eliquis 05/13 if stable. Mass of right ilium - found on CT in and outside hospital - pt was supposed to see oncologist this/next week, discussed with who c ancelled the appointment as pt is currently in the hospital - will reschedule the appointment Suspected neoplasm of colon - 2 polyps removed - pathology pending Mild/ moderate protein-calorie malnutrition -will need further rn occupational health support as outpt (2) Urinary retention: -Bladder scan revealed urinary retention > 1 L -Leary placed in ED -Urology consult - pt seen while inpt. He will likely need further work-up as outpt. (3) Paroxysmal atrial fibrillation: -Also history of sinus node dysfunction s/p pacemaker -Rate controlled on metoprolol, will continue -Holding Eliquis as above -will resume on dc (4) DVT prophylaxis: -SCDs due to anemia Admission and Anticipated Discharge Date Admission Date: May 09, 2020 Subjective Pt seen in follow up of anemia and urinary retention, other med. problems. Pt now s/p EGD and colonoscopy. Pt laying in bed in NAD. Denies any chest pain, shortness of breath, abd. pain. Pt is eager to be discharged. Discussed that we are monitoring him for bleed - his H&H. Plan to re-chcek H&H tmrw and likely dc tmrw. Review of Systems Review of Systems: ROS per HPI, all other systems reviewed and negative Physical Exam Physical Exam: Constitutional: + thin Vitals as above Eyes: PERRL, EOMI, conjunctivae normal, anicteric sclerae ENMT: external ear and nose normal, oropharynx normal Respiratory: normal respiratory effort, lungs clear to auscultation Cardiovascular: Rate/Rhythm: regular rate and regular rhythm Vessels: normal peripheral pulses Extremities: no edema Gastrointestinal (Abdomen): normal bowel sounds, soft, nontender Musculoskeletal: no cyanosis or clubbing, extremities motor strength 5/5 Skin: no rashes, warm and dry Neurologic: PERRL, EOMI, no face palsy, no dysarthria Psychiatric: A+Ox3, euthymic affect Insight: + limited insight Forgetful Genitourinary: Leary in place draining clear yellow urine Results & Data Results & Data ([facility]) Vital Signs (Past 12 Hours) Vital Signs Temp Pulse Resp BP BP Pulse Ox 05/12/20 07:46 36.6 C 74 16 134/67 96 05/12/20 04:21 36.5 C 69 16 115/63 97 05/12/20 00:05 108/52 L 05/11/20 23:26 37.5 C 90 21 89/51 L 93 Laboratory Results 05/12/20 05/12/20 05/12/20 Range/Units 08:06 07:37 07:37 Hgb 9.6 L (14.0-18.0) g/dL Hct 30.3 L (42-52) % Sodium 134 L (136-145) mmol/L Potassium 4.0 (3.5-5.1) mmol/L Chloride 98 (98-107) mmol/L Carbon Dioxide 27 (21-32) mmol/L Anion Gap 9.0 (3-11) BUN 17 (7-18) mg/dl Creatinine 1.46 H (0.6-1.4) mg/dl Est Cr Clr Drug Dosing 34.2 ml/min Est GFR ( Amer) 51.5 Est GFR (Non-Af Amer) 44.5 BUN/Creatinine Ratio 11.3 (10-20) Glucose 112 H (70-99) mg/dl POC Glucose 114 H (70-99) mg/dl Calcium 9.7 (8.5-10.1) mg/dl Medications Administered Current Inpatient Medications Acetaminophen (Acetaminophen 325 Mg Tab) 650 mg PO Q4H PRN PRN Reason: pain/fever Stop: 06/08/20 19:12 Gabapentin (Gabapentin 300 Mg Cap) 300 mg PO BID [facility] Stop: 06/08/20 20:59 Last Admin: 05/12/20 08:14 Dose: 300 mg Documented by: Metoprolol Succinate (Metoprolol Succ 25mg Ext Rel Tab) 25 mg PO DAILY [facility] Stop: 06/09/20 08:59 Last Admin: 05/12/20 08:14 Dose: 25 mg Documented by: Metoprolol Succinate (Metoprolol Succ 25mg Ext Rel Tab) 12.5 mg PO HS [facility] Stop: 06/08/20 20:59 Last Admin: 05/11/20 20:39 Dose: 12.5 mg Documented by: Pantoprazole Sodium (Pantoprazole 40 Mg Tab) 40 mg PO BID [facility] Stop: 06/09/20 08:59 Last Admin: 05/12/20 08:14 Dose: 40 mg Documented by:
[2020-05-13] MEDS: PANTOprazole 40 MG TAB PO SCH (08:04)
[2020-05-13] MEDS: GABAPENTIN 300 MG CAP PO SCH (08:04)
[2020-05-13] MEDS: METOPROLOL SUCC 25MG EXT REL TAB PO SCH (08:04)
[2020-05-13 08:14] LABS: Hematocrit (blood only) 28.5 % (42-52); Hemoglobin 8.9 g/dL (14.0-18.0)
[2020-05-13 08:44] LABS: BUN Creatinine Ratio 13.4 (10-20); Calcium 8.9 mg/dl (8.5-10.1); Est GFR (African American) 52.9; Est GFR (Non-African American) 45.6; Potassium 4.1 mmol/L (3.5-5.1)
--- NOTE | 2020-05-13 09:56 | Hospitalist Progress Note ---
Date of Service May 13, 2020 Assessment & Plan (1) Anemia: -[facility] -Patient presenting from home with reports of difficulty urinating -In the ED, Hgb found to be 7.6. Rectal exam per ED provider revealed brown, heme positive stool. -Hgb has been downtrendin.0 01/09/2019, 10.0 04/11/2020 -Had CT ABD/pelvis at [facility] and reports following up with oncologist next week for findings. Further details unavailable at time of admission. Records requested. Outside CT report obtained and reviewed: 1.Large destructive soft tissue mass lesion of the right ilium. Differential dg. include metastatic disease, myeloma and lymphoma. Primary bone tumor is less likely statistically. Recommend oncologic evaluation and tissue sampling. 2. Enlarged right internal iliac chain lymph node measures 1.1. cm 3. Enlarged prostate -Does not appear to be having active or acute bleeding at this time -Concern for malignancy -Held Eliquis for now -P.o. PPI twice daily -1 unit PRBC -GI consult - s/p EGD and colonoscopy (05/11/20) - Esophagitis LA grade A, biopsied. 2 sessile polyps found in colon removed, clips placed. External hemorrhoids. Recommend H&H daily, Protonix 40 mg daily, Resume Eliquis 05/13 if stable. 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 Sahni, recommend at least 5 to 7 days of Leary decompression, pt will likely need further work-up as outpt, including possibly outpatient cystoscopy. (3) Paroxysmal atrial fibrillation: -Also history of sinus node dysfunction s/p pacemaker -Rate controlled on metoprolol, will continue -Holding Eliquis as above -will resume on dc (4) DVT prophylaxis: -SCDs due to anemia Admission and Anticipated Discharge Date Admission Date: May 09, 2020 Subjective Pt seen in follow up of anemia and urinary retention, other med. problems. Pt now s/p EGD and colonoscopy. 2 polyps removed - pathology pending. Pt laying in bed in NAD. Denies any chest pain, shortness of breath, abd. pain. Pt is eager to be discharged. Discussed with him necessary follow ups w/ his health care providers. Review of Systems Review of Systems: All systems reviewed & are unremarkable except as noted in HPI & below Constitutional: no fever and no chills Respiratory: no cough and no dyspnea Cardiovascular: no chest pain and no palpitations Gastrointestinal: no abdominal pain, no nausea and no vomiting Physical Exam Physical Exam: Constitutional: + thin Vitals as above Eyes: PERRL, EOMI, conjunctivae normal, anicteric sclerae ENMT: external ear and nose normal, oropharynx normal Respiratory: normal respiratory effort, lungs clear to auscultation Cardiovascular: Rate/Rhythm: regular rate and regular rhythm Vessels: normal peripheral pulses Extremities: no edema Gastrointestinal (Abdomen): normal bowel sounds, soft, nontender Musculoskeletal: no cyanosis or clubbing, extremities motor strength 5/5 Skin: no rashes, warm and dry Neurologic: PERRL, EOMI, no face palsy, no dysarthria Psychiatric: A+Ox3, euthymic affect Insight: + limited insight Forgetful Genitourinary: Leary in place draining clear yellow urine Results & Data Results & Data ([facility]) Vital Signs (Past 12 Hours) Vital Signs Temp Pulse Resp BP Pulse Ox 05/13/20 07:50 36.9 C 81 18 108/61 97 05/12/20 23:39 36.9 C 76 15 128/68 95 Laboratory Results 05/13/20 05/13/20 Range/Units 07:48 07:48 Hgb 8.9 L (14.0-18.0) g/dL Hct 28.5 L (42-52) % Sodium 134 L (136-145) mmol/L Potassium 4.1 (3.5-5.1) mmol/L Chloride 99 (98-107) mmol/L Carbon Dioxide 25 (21-32) mmol/L Anion Gap 10.0 (3-11) BUN 19 H (7-18) mg/dl Creatinine 1.43 H (0.6-1.4) mg/dl Est Cr Clr Drug Dosing 35.0 ml/min Est GFR ( Amer) 52.9 Est GFR (Non-Af Amer) 45.6 BUN/Creatinine Ratio 13.4 (10-20) Glucose 103 H (70-99) mg/dl Calcium 8.9 (8.5-10.1) mg/dl Medications Administered Current Inpatient Medications Acetaminophen (Acetaminophen 325 Mg Tab) 650 mg PO Q4H PRN PRN Reason: pain/fever Stop: 06/08/20 19:12 Gabapentin (Gabapentin 300 Mg Cap) 300 mg PO BID DEWEY Stop: 06/08/20 20:59 Last Admin: 05/13/20 08:04 Dose: 300 mg Documented by: Metoprolol Succinate (Metoprolol Succ 25mg Ext Rel Tab) 25 mg PO DAILY [facility] Stop: 06/09/20 08:59 Last Admin: 05/13/20 08:04 Dose: 25 mg Documented by: Metoprolol Succinate (Metoprolol Succ 25mg Ext Rel Tab) 12.5 mg PO HS [facility] Stop: 06/08/20 20:59 Last Admin: 05/12/20 21:32 Dose: 12.5 mg Documented by: Pantoprazole Sodium (Pantoprazole 40 Mg Tab) 40 mg PO BID [facility] Stop: 06/09/20 08:59 Last Admin: 05/13/20 08:04 Dose: 40 mg Documented by:
--- NOTE | 2020-05-13 10:31 | Discharge Summary ---
Date of Service May 13, 2020 Admission HPI Per Admitting Provider 79-year-old male with PMH paroxysmal atrial fibrillation anticoagulated on Eliquis, sinus node dysfunction s/p pacemaker, and other problems listed below who presents to the ED for evaluation of difficulty urinating. Patient and are both somewhat poor historians. Reviewing what records are available, patient has had a 20 pound weight loss over the past couple months. He also has been found to have a downtrending hemoglobin being 10.0 on 04/11/2020, previously 14.0 01/09/2019. 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 He had reported difficulty urinating and was ins tructed to come to the ED if symptoms do not improve. Also, patient's reports that he had a CT abdomen done as an outpatient. Results are unavailable to me at this time. However reports an appointment with an oncologist next week for follow-up of findings. Patient denies chest pain or shortness of breath. No lightheadedness, dizziness, diaphoresis, syncopal events. No abdominal pain, nausea, vomiting, diarrhea. Denies bright red bleeding per rectum and dark tarry stools. No other recent illnesses, fevers, chills. In the ED, bladder scan showed >1L of urinary retention. Leary catheter was placed and is now draining without difficulty. Labs show Hgb 7.6. Patient is hemodynamically stable. Rectal exam revealed brown, heme positive stool. Patient was given IV Protonix. Admission Exam Per Admitting Provider Constitutional: + thin Vitals as above Eyes: PERRL, conjunctivae normal, anicteric sclerae ENMT: external ear and nose normal, oropharynx normal Respiratory: normal respiratory effort, lungs clear to auscultation Cardiovascular: Rate/Rhythm: regular rate and regular rhythm Vessels: normal peripheral pulses Extremities: no edema Gastrointestinal (Abdomen): normal bowel sounds, soft, nontender, no hepatosplenomegaly Musculoskeletal: no cyanosis or clubbing, extremities motor strength 5/5 Skin: no rashes, warm and dry Neurologic: PERRL, EOMI, accommodation nl, no face palsy, no dysarthria Psychiatric: A+Ox3, euthymic affect Insight: + limited insight Forgetful Genitourinary: Leary in place draining clear yellow urine Principal Diagnosis Anemia Urinary retention Suspected neoplasm - 2 colon polyps found and removed; mass found on right ilium on outside CT Discharge Exam Constitutional: + thin Vitals as above Eyes: PERRL, EOMI, conjunctivae normal, anicteric sclerae ENMT: external ear and nose normal, oropharynx normal Respiratory: normal respiratory effort, lungs clear to auscultation Cardiovascular: Rate/Rhythm: regular rate and regular rhythm Vessels: normal peripheral pulses Extremities: no edema Gastrointestinal (Abdomen): normal bowel sounds, soft, nontender Musculoskeletal: no cyanosis or clubbing, extremities motor strength 5/5 Skin: no rashes, warm and dry Neurologic: PERRL, EOMI, no face palsy, no dysarthria Psychiatric: A+Ox3, euthymic affect Insight: + limited insight Forgetful Genitourinary: Leary in place draining clear yellow urine Discharge Data Allergies Allergy/AdvReac Type Severity Reaction Status Date / Time No Known Allergies Allergy Unknown Verified 05/09/20 15:27 Consultations 05/09/20 16:14 ED Decision to Admit Stat 05/09/20 19:13 Consult Gastroenterology Routine Consult Urology Routine Procedures Performed Operation Date: 05/11/20 10:00 Actual Procedures p Esophagogastroduodenoscopy - Andrea Torres MD s Colonoscopy - Andrea Torres MD Hospital Course (1) Anemia: -Admit to [facility] -Patient presenting from home with reports of difficulty urinating -In the ED, Hgb found to be 7.6. Rectal exam per ED provider revealed brown, heme positive stool. -Hgb has been downtrendin.0 01/09/2019, 10.0 04/11/2020 -Had CT ABD/pelvis at [facility] and reports following up with oncologist next week for findings. Further details unavailable at time of admission. Records requested. Outside CT report obtained and reviewed: 1.Large destructive soft tissue mass lesion of the right ilium. Differential dg. include metastatic disease, myeloma and lymphoma. Primary bone tumor is less likely statistically. Recommend oncologic evaluation and tissue sampling. 2. Enlarged right internal iliac chain lymph node measures 1.1. cm 3. Enlarged prostate -Does not appear to be having active or acute bleeding at this time -Concern for malignancy -Held Eliquis for now -P.o. PPI twice daily -1 unit PRBC -GI consult - s/p EGD and colonoscopy (05/11/20) - Esophagitis LA grade A, biopsied. 2 sessile polyps found in colon removed, clips placed. External hemorrhoids. Recommend H&H daily, Protonix 40 mg daily, Resume Eliquis 05/13 if stable. Mass of right ilium - found on CT in and outside hospital - pt was supposed to see oncologist this/next week, discussed with who cancelled the appointment as pt is currently in the hospital - will reschedule the appointment Suspected neoplasm of colon - 2 polyps removed - pathology pending Mild/ moderate protein-calorie malnutrition -will need further inspector technician support as outpt (2) Urinary retention: -Bladder scan revealed urinary retention > 1 L -Leary placed in ED -Urology consult - seen by Dr. Sahni, recommend at least 5 to 7 days of Leary decompression, pt will likely need further work-up as outpt, including possibly outpatient cystoscopy. (3) Paroxysmal atrial fibrillation: -Also history of sinus node dysfunction s/p pacemaker -Rate controlled on metoprolol, will continue -Holding Eliquis as above -will resume on dc (4) DVT prophylaxis: -SCDs due to anemia Total Time Total Time Spent Total Time Spent (In Minutes): 40 Total Time Includes: Examination of the Patient, Discharge Planning, Medication Reconciliation and Communication With Other Providers Discharge Plan Discharge Items Patient Disposition: Home - Self-Care Reason For Visit: ANEMIA, URINARY RETENTION Discharge Diagnosis: Anemia Urinary retention Suspected neoplasm - 2 colon polyps found and removed; mass found on right ilium on outside CT Activity: As commented below Non-emergency contact: Primary Care Provider and Specialist Call non-emergency contact if: you have any medication questions and your symptoms worsen Follow-up/Referrals: Rito Awad [Primary Care Provider] - 05/20/20 10:40 am Diet: Regular Addtl Attending Provider Instructions: Follow up with your primary care doctor within 1-2 weeks. The appointment was scheduled for you for 05/20/2020. Report from your endoscopy and colonoscopy was sent to your primary care doctor. Follow up with your oncologist (cancer doctor). Your current appointment was cancelled due to your hospitalization here. Make sure to reschedule the appointment at your earliest convenience. You will also need to follow up with urologist (Dr. Sahni) - to manage your urinary catheter. You will be contacted about the appointment. Pending Studies at Discharge: Yes Studies:: 2 polyps removed from colon - pathology pending Stand-Alone Forms: My [facility], Smoking Cessation Medications and DC Order Prescriptions: Continued tramadol 50 mg tablet 50 mg PO UD PRN (Reason: Pain) RF: 0 sucralfate 1 gram tablet 1 g PO TID PRN (Reason: Dyspepsia) RF: 0 metoprolol succinate 25 mg tablet extended release 24 hr 25 mg PO DAILY RF: 0 Eliquis 5 mg tablet 2.5 mg PO Q12H RF: 0 pantoprazole 40 mg tablet,delayed release (DR/EC) 40 mg PO DAILY RF: 0 gabapentin 300 mg capsule 300 mg PO BID RF: 0 metoprolol succinate 25 mg tablet extended release 24 hr 12.5 mg PO HS RF: 0 Discharge Orders: Discharge Order (Routine); Ordered 05/13/20 Ordered By: Elliot Waterman Admission Data Admit Date/Time: 05/09/20 17:15 Attending Provider: Elliot Waterman Admit Provider: Yanet Wayne Primary Care Provider: Rito Awad Other Providers: Yanet Wayne ; Marina Sexton ; Juan J Sahni
--- NOTE | 2020-05-15 07:58 | Coding Query ---
PATHOLOGY To promote full compliance with coding requirements relating to patient care, physician participation is requested in all cases of customer consultant uncertainty. Please assist us with the question(s) below: Please review the Pathology report and please document any relevant diagnosis(es) below: Diagnosis(es): The distal esophagus biopsies show squamous mucosa with underlying glandular mucosa with extensive intestinal metaplasia. This may represent Sanchez's esophagus but that diagnosis requires correlation with clinical and endoscopic findings. Thank you RUDOLPH Rivera [facility]OOKS HOSPITALAlbino
--- NOTE | 2020-05-18 07:41 | Coding Query ---
CODING QUERY To promote full compliance with coding requirements relating to patient care, provider participation is requested in all cases of orthopedic coder uncertainty. Please assist us with the question(s) below: Coding Question(s): Patient admitted with problematic H/H . Chronic GI bleed suspected. Colonoscopy =2 adenomatous colonic polyps resected. Please document, if known or suspected , the etiology of the anemia/ GI bleed. Thanks for your help! 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 No active bleeding identified during endoscopy. There may be other poss. reason for anemia such as pt may also possibly have bone marrow infiltration from neoplasm given mass found on iliac on outside CT, this however was not proven yet. Principal Diagnosis: "that condition established after study, to be chiefly responsible for occasioning the admission of the patient to the hospital for care." Co-Existing Principal Diagnosis: "when two or more diagnoses equally meet the criteria for principal diagnosis as determined by the circumstances of admission, diagnostic work up, and/or therapy provided, and the Alphabetic Index, Tabular List, or another coding guideline does not provide sequencing direction, any one of the diagnoses may be sequenced first." "When the physician has documented what appears to be a current diagnosis in the body of the record, but has not included the diagnosis in the final diagnostic statement, the physician should be asked whether the diagnosis should be added." ([facility] 2 QTR90. p3-4) LUIS
== END 2020-05-13 12:41 | disposition home health service (06) ==
LOC: ED 12:57 → SUATTDRO 17:15 → INTOOBSV 17:15 → 3W 17:15

== ENCOUNTER 2020-05-29 15:06 | Inpatient (IN) ==
[2020-05-29] MEDS ORDERED: ACETAMINOPHEN 500 MG TAB PO STA (15:46)
[2020-05-29] MEDS ORDERED: SODIUM CHLORIDE 0.9% 1000ML 500 ML IV ONE (15:46)
[2020-05-29] MEDS ORDERED: SODIUM CHLORIDE 0.9% 1000ML 1,000 ML IV STA (15:46)
[2020-05-29 15:57] LABS: Basophils # (auto) 0.01 K/uL (0-0.2); Basophils % (auto) 0.1 %; Hematocrit (blood only) 25.8 % (42-52); Immature Granulocytes # (auto) 0.08 K/uL (0.00-0.02); Lymphocytes # (auto) 1.21 K/uL (1.2-3.4); Lymphocytes % (auto) 15.3 %; Mean Corpuscular Hemoglobin 26.6 pg (25-34); Mean Corpuscular Volume 85.7 fL (80-100); Mean Platelet Volume 8.3 fL (7.4-10.4); Monocytes # (auto) 0.95 K/uL (0.11-0.59); Neutrophils # (auto) 5.67 K/uL (1.4-6.5); Neutrophils % (auto) 71.6 %; Platelet Count 529 K/uL (130-400); RDW Coefficient of Variation 16.9 % (11.5-14.5); Red Blood Count 3.01 M/uL (4.7-6.1); White Blood Count 7.92 K/uL (4.8-10.8)
[2020-05-29 16:05] LABS: Albumin Level 1.4 gm/dl (3.4-5.0); BUN Creatinine Ratio 8.7 (10-20); Calcium 9.2 mg/dl (8.5-10.1); Creatinine Clr Calc Pharmacy 38.4 ml/min; Est GFR (African American) 56.7; Est GFR (Non-African American) 48.9; Magnesium 1.7 mg/dl (1.8-2.4); Potassium 3.6 mmol/L (3.5-5.1)
[2020-05-29 16:16] LABS: Albumin Globulin Ratio 0.2 (0.9-2); Bilirubin,Total 0.5 mg/dl (0.2-1); Globulin 7.8 gm/dl (2.5-4.0); Thyroid Stimulating Hormone 1.18 uIu/ml (0.300-4.500); Total Protein 9.2 gm/dl (6.4-8.2); Troponin I 0.015 ng/ml (0-0.045)
[2020-05-29 16:23] LABS: Appearance Urine Clear (Clear); Bacteria Urine Automated Negative (Negative); Bilirubin Urine Negative (Negative); Blood Urine Negative (Negative); Color Urine Dark Yellow; Glucose Urine UA Negative (Negative); Ketones Urine Negative (Negative); Leukocyte Esterase Urine Negative (Negative); Nitrite Urine Negative (Negative); Protein Urine 1+ (Negative); RBC Urine Automated 0-4 /hpf (0-4); Specific Gravity Urine 1.015 (1.000-1.030); Urobilinogen Urine Negative (Negative)
--- NOTE | 2020-05-29 16:30 | CT Scan Report ---
CT SCAN OF THE BRAIN WITHOUT IV CONTRAST CLINICAL HISTORY: Change in mental status. Covid. COMPARISON STUDY: CT of the brain dated 03/31/2019. TECHNIQUE: Unenhanced axial CT scan of the brain is performed from the vertex to the skull base. A do se lowering technique was utilized adhering to the principles of ALARA. CT DOSE: 788.63 mGycm FINDINGS: Brain parenchyma: There are age-related involutional changes noting mild to moderate subcortical and periventricular microangiopathic change. There is no hemorrhage, mass effect, or evidence of acute t erritorial ischemia by CT criteria. Liu-white matter differentiation is preserved. No extra-axial fl uid collection is seen. Ventricles, sulci, cisterns: Prominent secondary to involutional change. Intracranial vasculature: There is atherosclerotic calcification of the cavernous carotid arteries. Calvarium: Unremarkable. Sinuses and mastoids: The visualized paranasal sinuses are clear. The mastoid air cells are well pneu matized. Cerumen is noted in the external auditory canals. Orbits: The bony orbits are grossly intact. IMPRESSION: There is no hemorrhage, mass effect, or evidence of acute territorial ischemia by CT ann marie zambrano. ACT 112: Negative or not required by law. Electronically signed by: Jordan Martinez M.D. 05/29/2020 4:29 PM
[2020-05-29] MEDS ORDERED: SODIUM CHLORIDE 0.9% 1000ML 1,000 ML IV ONE (16:33)
--- NOTE | 2020-05-29 16:44 | XRay Report ---
SINGLE VIEW CHEST CLINICAL HISTORY: Generalized weakness. FINDINGS: An AP, portable, upright chest radiograph is compared to study dated 03/31/2019. The examina tion is degraded by portable technique and patient rotation. A 2-lead cardiac pacemaker is unchanged in position and partially obscures the left mid chest. The heart is enlarged noting atherosclerotic c alcification of the thoracic aorta. There is prominence of the pulmonary vasculature. Subtle hazy int erstitial airspace opacities are seen bilaterally. No large pleural effusion or pneumothorax is ident ified. The skeletal structures are osteopenic. The bony thorax is grossly intact. IMPRESSION: 1. Cardiomegaly and cardiac pacemaker. There is prominence of the pulmonary vasculature. Correlate cl inically for evidence of congestive failure. 2. Subtle interstitial airspace opacities are seen bilaterally. This could be related to congestive c hange, or could possibly represent a mild infectious pneumonitis. Clinical correlation will be essent ial. ACT 112: Negative or not required by law. Electronically signed by: Jordan Martinez M.D. 05/29/2020 4:42 PM
[2020-05-29] MEDS ORDERED: CEFEPIME 2,000 MG/20 ML VIAL IV STA (17:00)
--- NOTE | 2020-05-29 18:50 | History & Physical Report ---
Date of Service May 29, 2020 Assessment & Plan (1) Fever: (2) Pneumonitis: (3) Elevated lactic acid level: Pt presents w/ fever - at this moment etiology unclear - possible d/t infection vs. malignancy CXR suggestive of poss. pneumonitis recent hx of urinary retention and pt discharged w/ Leary catheter UA not c/w UTI Blood cltx - pending Ucltx- pending Recent hx of colonic polyp removal- two sessile serrated adenomas with dysplasia and one tubular adenoma Poss. 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 gentle hydration Repeat lactic acid Given Cefepime in Ed, will cont. for now and will add vanco Follow cultx procalcitonin ordered (4) Paroxysmal atrial fibrillation: cont. home metoprolol and Eliquis (5) Anemia: - recently hospitalized, s/p EGD and colonoscopy - Hgb stable overall from previous admission , no signs of acute bleed - cont. to monitor (6) CKD (chronic kidney disease), stage III: - cont. to monitor - try to avoid nephrotoxic agents (7) GERD (gastroesophageal reflux disease): Sanchez's esophagus - cont. home PPI (8) DVT prophylaxis: - on Eliquis Code status - Do Not Intubate, ok CPR, shock, meds (discussed in detail w/ pt's ) History of Present Illness Chief Complaint: "Excessive somnolence", found febrile in ED Primary Care Provider: Rito Awad Pt is an 79-year-old male with hx of paroxysmal atrial fibrillation anticoagulated on Eliquis, sinus node dysfunction s/p pacemaker, R illiac mass (found on outside CT, and to be followed by oncology), who was recently hospitalized for anemia and urinary retention. At that time Leary catheter was placed by urology. He also underwent EGD and colonoscopy with with GI (05/11/20) - Esophagitis LA grade A, biopsied. 2 sessile polyps found in colon removed, clips placed. Final biopsy results - colonoscopy with two sessile serrated adenomas with dysplasia and one tubular adenoma removed. EGD showed Barretts esophagus. GI followed up with the pt via telemedicine visit and recommend follow up colonoscopy in 4-6 weeks and continuing PO PPI. Pt was also found "1.Large destructive soft tissue mass lesion of the right ilium. Differential dg. include metastatic disease, myeloma and lymphoma. Primary bone tumor is less likely statistically. Recommend oncologic evaluation and tissue sampling. 2. Enlarged right internal iliac chain lymph node measures 1.1. cm 3. Enlarged prostate", at outside hospital CT abd/ pelvis (at [facility]). Pt was supposed to follow up with oncologist for right iliac mass. The appointment was cancelled by the as pt was hospitalized here at [facility]. Pt now presents due to excessive sleepiness. He was doing well after hospital d ischarge and was followed up with his PCP and GI. His Leary catheter was removed by home nurse and reportedly he was urinating well, however the Leary stayed longer than initially recommended by urology (per he had catheter placed for at least 10 days). He is supposed to see oncologist on Tuesday (appointment was unfortunately cancelled before). Pt started to feel more somnolent several days ago but felt most fatigued today and therefore asked his to bring him to the hospital. Today he also had a fever and this was confirmed in the ED where he was found febrile 38.4C. Pt is a poor historian, thinks he was in the hospital long time ago, does not think it was just last April. Most hx obtained from pt's and per chart review. Pt denies any chest pain, shortness of breath, cough, abd. pain, nausea or vomiting. Denies blood in stool or urine. Denies difficulty w/ urination. In the ED, CXR was obtained and CT head. His lactate was elevated at 2.6, WBC wnl. He was given IVF and cefepime. received tylenol for fever. Allergies Allergy/AdvReac Type Severity Reaction Status Date / Time No Known Allergies Allergy Verified 05/29/20 17:13 Home Medications Medication Instructions Recorded Confirmed Type gabapentin 300 mg PO BID 06/25/18 05/29/20 History Eliquis 2.5 mg PO Q12H 05/09/20 05/29/20 History metoprolol succinate 25 mg PO DAILY 05/09/20 05/29/20 History pantoprazole 40 mg PO QAM 05/09/20 05/29/20 History tramadol 50 mg PO DIRECTED PRN 05/09/20 05/29/20 History metoprolol succinate 12.5 mg PO HS 05/29/20 05/29/20 History Past Med/Surg History Medical History CKD (chronic kidney disease), stage III GERD (gastroesophageal reflux disease) Pacemaker Paroxysmal atrial fibrillation Sinus node dysfunction Surgical History History of total right hip replacement Family History Other Family history non-contributory Social History Smoking Status: Never smoker Hx Alcohol Use: No Hx Substance Use: No Preferred Language: [place] Communication Ability: Effective Hearing Ability: Normal 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: Voice Beliefs That Will Affect Care: None marital status: Current Living Situation: Spouse current occupational status: employed Feels Safe at Home: Yes Assistive Devices: None Review of Systems Review of Systems: All systems reviewed & are unremarkable except as noted in HPI & below Constitutional: + fatigue; no fever (however febrile in ED) and no chills pt reports excessive somnolence Eyes: no problem reported Ear, Nose, Mouth, Throat: no problem reported Respiratory: no cough, no dyspnea and no problem reported Cardiovascular: no chest pain and no palpitations Gastrointestinal: no abdominal pain, no nausea and no vomiting Genitourinary: no dysuria Musculoskeletal: no problem reported Integumentary: no problem reported Neurologic: no problem reported Psychiatric: no problem reported Endocrine: no problem reported Hematologic / Lymphatic: no problem reported pt has known iliac mass for which he was supposed to follow up w/ oncology Allergy / Immunological: no problem reported Physical Exam Constitutional: WD/WN, vitals as above Eyes: PERRL, conjunctivae normal, anicteric sclerae ENMT: external ear and nose normal, oropharynx normal Neck: trachea midline, no thyromegaly normal visual inspection Respiratory: normal respiratory effort, lungs clear to auscultation no respiratory distress and no labored breathing Auscultation: no crackles, no rhonchi and no wheezes Cardiovascular: RRR, no murmur, no edema Chest (Breasts): normal inspection/palpation of breasts Gastrointestinal (Abdomen): Inspection/Auscultation: abdomen normal to inspection and normal bowel sounds; abdomen not distended and no abdominal edema Percussion/Palpation: abdomen soft; abdomen nontender, no guarding and abdom en not rigid Musculoskeletal: no cyanosis or clubbing, extremities motor strength 5/5 Head/Neck/Chest: normocephalic, head atraumatic and neck supple Skin: no rashes, warm and dry Neurologic: PERRL, EOMI, accommodation nl, no face palsy, no dysarthria Psychiatric: A+Ox3, euthymic affect Genitourinary: no CVA tenderness Lymphatic: no lymphedema Results & Data Results & Data ([facility]) Vital Signs (Past 12 Hours) Vital Signs Temp Pulse Resp BP Pulse Ox 05/29/20 18:01 75 16 93 05/29/20 18:00 76 18 108/49 L 96 05/29/20 17:31 73 18 96 05/29/20 17:30 72 12 101/54 L 97 05/29/20 17:01 78 18 95 05/29/20 17:00 80 18 106/55 L 95 05/29/20 16:40 82 24 95 05/29/20 16:31 79 95 05/29/20 16:30 81 13 102/52 L 95 05/29/20 16:28 102/53 L 95 05/29/20 16:27 93 05/29/20 16:10 81 14 93 05/29/20 16:07 95 05/29/20 16:01 82 93 05/29/20 16:00 85 107/53 L 93 05/29/20 15:57 38.4 C H 05/29/20 15:50 84 94 05/29/20 15:41 83 12 106/59 L 95 05/29/20 15:40 87 18 05/29/20 15:31 86 12 05/29/20 15:30 87 16 85/43 L 05/29/20 15:28 83 22 05/29/20 15:13 37.0 C 82 20 113/55 L 96 05/29/20 15:12 87 14 113/55 L Laboratory Results 05/29/20 05/29/20 05/29/20 Range/Units Unknown Unknown 18:06 WBC 7.92 (4.8-10.8) K/uL RBC 3.01 L (4.7-6.1) M/uL Hgb 8.0 L (14.0-18.0) g/dL Hct 25.8 L (42-52) % MCV 85.7 (80-100) fL MCH 26.6 (25-34) pg MCHC 31.0 L (32-36) g/dL RDW Std Deviation 53.0 H (36.4-46.3) fL RDW Coeff of Maryanne 16.9 H (11.5-14.5) % Plt Count 529 H (130-400) K/uL MPV 8.3 (7.4-10.4) fL Immature Gran % (Auto) 1.0 % Neut % (Auto) 71.6 % Lymph % (Auto) 15.3 % Randolph % (Auto) 12.0 % Eos % (Auto) 0.0 % Baso % (Auto) 0.1 % Neut # (Auto) 5.67 (1.4-6.5) K/uL Lymph # (Auto) 1.21 (1.2-3.4) K/uL Randolph # (Auto) 0.95 H (0.11-0.59) K/uL Eos # (Auto) 0.00 (0-0.5) K/uL Baso # (Auto) 0.01 (0-0.2) K/uL Immature Gran # (Auto) 0.08 H (0.00-0.02) K/uL Sodium 131 L (136-145) mmol/L Potassium 3.6 (3.5-5.1) mmol/L Chloride 96 L (98-107) mmol/L Carbon Dioxide 23 (21-32) mmol/L Anion Gap 12.0 H (3-11) BUN 12 (7-18) mg/dl Creatinine 1.35 (0.6-1.4) mg/dl Est Cr Clr Drug Dosing 38.4 ml/min Est GFR ( Amer) 56.7 Est GFR (Non-Af Amer) 48.9 BUN/Creatinine Ratio 8.7 L (10-20) Glucose 115 H (70-99) mg/dl Lactate 1.9 (0.4-2.0) mmol/L Calcium 9.2 (8.5-10.1) mg/dl Magnesium 1.7 L (1.8-2.4) mg/dl Total Bilirubin 0.5 (0.2-1) mg/dl AST 40 H (15-37) U/L ALT 18 (12-78) U/L Alkaline Phosphatase 129 H (45-117) U/L Troponin I 0.015 (0-0.045) ng/ml Total Protein 9.2 H (6.4-8.2) gm/dl Albumin 1.4 L (3.4-5.0) gm/dl Globulin 7.8 H (2.5-4.0) gm/dl Albumin/Globulin Ratio 0.2 L (0.9-2) TSH 1.180 (0.300-4.500) uIu/ml Urine Color Urine Appearance (Clear) Urine pH (4.5-7.5) Ur Specific [place] (1.000-1.030) Urine Protein (Negative) Urine Glucose (UA) (Negative) Urine Ketones (Negative) Urine Blood (Negative) Urine Nitrite (Negative) Urine Bilirubin (Negative) Urine Urobilinogen (Negative) Ur Leukocyte Esterase (Negative) Urine WBC (Auto) (0-5) /hpf Urine RBC (Auto) (0-4) /hpf U Hyaline Cast (Auto) (0-5) /lpf U Epithel Cells (Auto) (0-5) /lpf Urine Bacteria (Auto) (Negative) Urine Yeast COVID-19 Eval Order SARS-CoV-2, RNA, NAAT (NEGATIVE) 05/29/20 05/29/20 05/29/20 Range/Units 16:12 16:12 15:47 WBC (4.8-10.8) K/uL RBC (4.7-6.1) M/uL Hgb (14.0-18.0) g/dL Hct (42-52) % MCV (80-100) fL MCH (25-34) pg MCHC (32-36) g/dL RDW Std Deviation (36.4-46.3) fL RDW Coeff of Maryanne (11.5-14.5) % Plt Count (130-400) K/uL MPV (7.4-10.4) fL Immature Gran % (Auto) % Neut % (Auto) % Lymph % (Auto) % Randolph % (Auto) % Eos % (Auto) % Baso % (Auto) % Neut # (Auto) (1.4-6.5) K/uL Lymph # (Auto) (1.2-3.4) K/uL Randolph # (Auto) (0.11-0.59) K/uL Eos # (Auto) (0-0.5) K/uL Baso # (Auto) (0-0.2) K/uL Immature Gran # (Auto) (0.00-0.02) K/uL Sodium (136-145) mmol/L Potassium (3.5-5.1) mmol/L Chloride (98-107) mmol/L Carbon Dioxide (21-32) mmol/L Anion Gap (3-11) BUN (7-18) mg/dl Creatinine (0.6-1.4) mg/dl Est Cr Clr Drug Dosing ml/min Est GFR ( Amer) Est GFR (Non-Af Amer) BUN/Creatinine Ratio (10-20) Glucose (70-99) mg/dl Lactate (0.4-2.0) mmol/L Calcium (8.5-10.1) mg/dl Magnesium (1.8-2.4) mg/dl Total Bilirubin (0.2-1) mg/dl AST (15-37) U/L ALT (12-78) U/L Alkaline Phosphatase (45-117) U/L Troponin I (0-0.045) ng/ml Total Protein (6.4-8.2) gm/dl Albumin (3.4-5.0) gm/dl Globulin (2.5-4.0) gm/dl Albumin/Globulin Ratio (0.9-2) TSH (0.300-4.500) uIu/ml Urine Color Dark Yellow Urine Appearance Clear (Clear) Urine pH 5.0 (4.5-7.5) Ur Specific [place] 1.015 (1.000-1.030) Urine Protein 1+ H (Negative) Urine Glucose (UA) Negative (Negative) Urine Ketones Negative (Negative) Urine Blood Negative (Negative) Urine Nitrite Negative (Negative) Urine Bilirubin Negative (Negative) Urine Urobilinogen Negative (Negative) Ur Leukocyte Esterase Negative (Negative) Urine WBC (Auto) 1-5 (0-5) /hpf Urine RBC (Auto) 0-4 (0-4) /hpf U Hyaline Cast (Auto) 1-5 (0-5) /lpf U Epithel Cells (Auto) 5-10 H (0-5) /lpf Urine Bacteria (Auto) Negative (Negative) Urine Yeast Not Reportable COVID-19 Eval Order [email or web address] SARS-CoV-2, RNA, NAAT NEGATIVE (NEGATIVE) 05/29/20 Range/Units 15:03 WBC (4.8-10.8) K/uL RBC (4.7-6.1) M/uL Hgb (14.0-18.0) g/dL Hct (42-52) % MCV (80-100) fL MCH (25-34) pg MCHC (32-36) g/dL RDW Std Deviation (36.4-46.3) fL RDW Coeff of Maryanne (11.5-14.5) % Plt Count (130-400) K/uL MPV (7.4-10.4) fL Immature Gran % (Auto) % Neut % (Auto) % Lymph % (Auto) % Randolph % (Auto) % Eos % (Auto) % Baso % (Auto) % Neut # (Auto) (1.4-6.5) K/uL Lymph # (Auto) (1.2-3.4) K/uL Randolph # (Auto) (0.11-0.59) K/uL Eos # (Auto) (0-0.5) K/uL Baso # (Auto) (0-0.2) K/uL Immature Gran # (Auto) (0.00-0.02) K/uL Sodium (136-145) mmol/L Potassium (3.5-5.1) mmol/L Chloride (98-107) mmol/L Carbon Dioxide (21-32) mmol/L Anion Gap (3-11) BUN (7-18) mg/dl Creatinine (0.6-1.4) mg/dl Est Cr Clr Drug Dosing ml/min Est GFR ( Amer) Est GFR (Non-Af Amer) BUN/Creatinine Ratio (10-20) Glucose (70-99) mg/dl Lactate 2.6 H* (0.4-2.0) mmol/L Calcium (8.5-10.1) mg/dl Magnesium (1.8-2.4) mg/dl Total Bilirubin (0.2-1) mg/dl AST (15-37) U/L ALT (12-78) U/L Alkaline Phosphatase (45-117) U/L Troponin I (0-0.045) ng/ml Total Protein (6.4-8.2) gm/dl Albumin (3.4-5.0) gm/dl Globulin (2.5-4.0) gm/dl Albumin/Globulin Ratio (0.9-2) TSH (0.300-4.500) uIu/ml Urine Color Urine Appearance (Clear) Urine pH (4.5-7.5) Ur Specific [place] (1.000-1.030) Urine Protein (Negative) Urine Glucose (UA) (Negative) Urine Ketones (Negative) Urine Blood (Negative) Urine Nitrite (Negative) Urine Bilirubin (Negative) Urine Urobilinogen (Negative) Ur Leukocyte Esterase (Negative) Urine WBC (Auto) (0-5) /hpf Urine RBC (Auto) (0-4) /hpf U Hyaline Cast (Auto) (0-5) /lpf U Epithel Cells (Auto) (0-5) /lpf Urine Bacteria (Auto) (Negative) Urine Yeast COVID-19 Eval Order SARS-CoV-2, RNA, NAAT (NEGATIVE) Diagnostic Findings Head CT IMPRESSION: There is no hemorrhage, mass effect, or evidence of acute territorial ischemia by CT criteria. CXR IMPRESSION: 1. Cardiomegaly and cardiac pacemaker. There is prominence of the pulmonary vasculature. Correlate clinically for evidence of congestive failure. 2. Subtle interstitial airspace opacities are seen bilaterally. This could be related to congestive change, or could possibly represent a mild infectious pneumonitis. Clinical correlation will be essential. Code Status & VTE Plan VTE Prophylaxis Plan VTE Prophylaxis will be ordered: Yes
--- NOTE | 2020-05-29 19:15 | Emergency Department Note ---
Impression & Plan Fever, Acute confusion, Pneumonitis, Elevated lactic acid level ED Provider Note INFORMANT: Patient, ED PROVIDER(S): Delroy William MD CHIEF COMPLAINT: Illness PLAN: Disposition: Admitted Condition: Good Outpatient prescription management: none Referral: None MEDICAL DECISION MAKING: Patient presented emergency department with his because of illness and confusion. was concerned that he may be febrile. He was febrile. The patient had a work-up initiated. He was given Tylenol. He was hydrated with fluid. His CBC and chemistry panel was unremarkable. The patient had a chest x-ray concerning for pneumonitis. He had an unremarkable urinalysis. Patient's lactate level was elevated. With proper fluid hydration is cleared. Blood cultures were done. The patient was given empiric cefepime. Given his confusion and fever with the pneumonitis a Covid test was performed. This was negative. The [facility], Dr. Waterman. The patient was evaluated in the ER and admitted. Head CT was negative. Triage Nursing notes reviewed and agree them. Additional history obtained from patient's Prior medical records reviewed regarding prior ER visits. Vital Signs: reviewed and remarkable for fever Differential diagnosis: Infection, hypoglycemia, electrolyte abnormalities, overdose, toxicologic, cardiac sources, intracerebral event, neurologic, trauma, as well as other pathologies. Diagnostics interpreted by me: ECG: Twelve-lead ECG reveals sinus rhythm at 84 bpm. PAC. Right bundle branch block and left anterior fascicular block. Anterior and lateral T wave inversions. When compared to 03/31/2019 the T wave inversions are more pronounced. Cardiac Monitoring: Cardiac monitoring ordered by me: The patient was placed on continuous cardiac monitoring and observed. It revealed a normal sinus rhythm at 88 beats per minute without ectopy or evidence of dysrhythmia. Imaging studies: Head CT: A noncontrast CT scan of the head was performed and was negative for tumor, fracture, intracranial hemorrhage, or other acute pathology. Chest x-ray concerning for pneumonitis. I refer you to the EMR for further imaging details. HPI: The patient is a 79 year old male who presents to the Emergency Room with complaints of illness. This started over the last week and is progressing. notes the patient has had confusion. The patient also notes the following associated symptoms, poor p.o. intake, weight loss, general weakness. The patient has taken no medication for relieving factors. Current pain is rated as 0/10. Due to the confusion and other symptoms the patient was brought to the ER today for evaluation. He is oriented to person and place and voices no current complaints. Pt denies LOC, headache, fevers, chills, diaphoresis, visual changes, neck pain, chest pain, breathing difficulties, nausea, vomiting, abdominal pain, back pain, melena, hematochezia, urinary symptoms, numbness, lymphadenopathy, rash, or other complaints. ROS: See above HPI for pertinent positives & negatives. A total of 10 systems reviewed and were otherwise negative. PAST MEDICAL HISTORY:See Below , [paroxysmal atrial fibrillation, anemia PAST SURGICAL HISTORY:See Below, FAMILY HISTORY:See Below SOCIAL HISTORY:See Below, HOME MEDICATIONS:See Below ALLERGIES:See Below VITALS:See Below PHYSICAL EXAMINATION: GENERAL: Awake, alert, flushed-appearing, in no distress HENT: Normocephalic, atraumatic. Oropharynx unremarkable. EYES: Normal conjunctiva. Sclera non-icteric. NECK: Inspection normal. Non-tender. Supple. No nuchal rigidity. FROM. No mas ses. RESPIRATORY: Clear to auscultation. No wheezes. No rales. Normal respiratory effort. CARDIAC: Normal rate. Normal rhythm. No murmurs. No rubs. Extremities warm and well perfused. Pulses equal. No JVD. GI: Soft, non-distended. No tenderness to palpation. No rebound or guarding. No masses. RECTAL: Deferred. MUSCULOSKELETAL: Atraumatic. Chest examination reveals no tenderness. The back is symmetrical on inspection without obvious abnormality. There is no CVA tenderness to palpation. No joint edema. LOWER EXTREMITIES: Calves are equal size bilaterally and non-tender. No edema. No discoloration. NEURO: Normal sensorium. No sensory or motor deficits noted. SKIN: Warm to the touch. No rash or jaundice noted. Delroy William MD Past Med/Surg History Medical History CKD (chronic kidney disease), stage III GERD (gastroesophageal reflux disease) Pacemaker Paroxysmal atrial fibrillation Sinus node dysfunction Surgical History History of total right hip replacement Family History Other Family history non-contributory Social History Smoking Status: Never smoker Hx Alcohol Use: No Hx Substance Use: No Preferred Language: Armenian Communication Ability: Effective Hearing Ability: Normal Transport Medic Required: Voice Beliefs That Will Affect Care: None marital status: Current Living Situation: Spouse current occupational status: employed Feels Safe at Home: Yes Assistive Devices: None Allergies Allergies Allergy/AdvReac Type Severity Reaction Status Date / Time No Known Allergies Allergy Verified 05/29/20 17:13 Home Meds Home Medications Medication Instructions Recorded Confirmed gabapentin 300 mg PO BID 06/25/18 05/29/20 Eliquis 2.5 mg PO Q12H 05/09/20 05/29/20 metoprolol succinate 25 mg PO DAILY 05/09/20 05/29/20 pantoprazole 40 mg PO QAM 05/09/20 05/29/20 tramadol 50 mg PO DIRECTED PRN 05/09/20 05/29/20 metoprolol succinate 12.5 mg PO HS 05/29/20 05/29/20 Results & Data (ED) Vital Signs Vital Signs - 24 hr 05/29/20 15:12 05/29/20 15:13 05/29/20 15:28 Temperature 37.0 C Temperature Source Oral Pulse Rate 87 82 83 Pulse Rate from SpO2 Sensor Respiratory Rate 14 20 22 Blood Pressure 113/55 L 113/55 L Blood Pressure Mean 82 74 Pulse Oximetry 96 Oxygen Delivery Method Room Air Sepsis Recent Fever Within 48 Hours No Sepsis New/Unexplained Change in Mental Status N/A Sepsis Action Taken by Nursing No Action Required 05/29/20 15:30 05/29/20 15:31 05/29/20 15:40 Temperature Temperature Source Pulse Rate 87 86 87 Pulse Rate from SpO2 Sensor Respiratory Rate 16 12 18 Blood Pressure 85/43 L Blood Pressure Mean 55 Pulse Oximetry Oxygen Delivery Method Sepsis Recent Fever Within 48 Hours Sepsis New/Unexplained Change in Mental Status Sepsis Action Taken by Nursing 05/29/20 15:41 05/29/20 15:50 05/29/20 15:57 Temperature 38.4 C H Temperature Source Oral Pulse Rate 83 84 Pulse Rate from SpO2 Sensor 87 Respiratory Rate 12 Blood Pressure 106/59 L Blood Pressure Mean 66 Pulse Oximetry 95 94 Oxygen Delivery Method Sepsis Recent Fever Within 48 Hours Sepsis New/Unexplained Change in Mental Status Sepsis Action Taken by Nursing 05/29/20 16:00 05/29/20 16:01 05/29/20 16:07 Temperature Temperature Source Pulse Rate 85 82 Pulse Rate from SpO2 Sensor 81 85 Respiratory Rate Blood Pressure 107/53 L Blood Pressure Mean 66 Pulse Oximetry 93 93 95 Oxygen Delivery Method Room Air Sepsis Recent Fever Within 48 Hours Sepsis New/Unexplained Change in Mental Status Sepsis Action Taken by Nursing 05/29/20 16:10 05/29/20 16:27 05/29/20 16:28 Temperature Temperature Source Pulse Rate 81 Pulse Rate from SpO2 Sensor 82 80 81 Respiratory Rate 14 Blood Pressure 102/53 L Blood Pressure Mean 63 Pulse Oximetry 93 93 95 Oxygen Delivery Method Sepsis Recent Fever Within 48 Hours Sepsis New/Unexplained Change in Mental Status Sepsis Action Taken by Nursing 05/29/20 16:30 05/29/20 16:31 05/29/20 16:40 Temperature Temperature Source Pulse Rate 81 79 82 Pulse Rate from SpO2 Sensor 80 80 80 Respiratory Rate 13 24 Blood Pressure 102/52 L Blood Pressure Mean 68 Pulse Oximetry 95 95 95 Oxygen Delivery Method Sepsis Recent Fever Within 48 Hours Sepsis New/Unexplained Change in Mental Status Sepsis Action Taken by Nursing 05/29/20 17:00 05/29/20 17:01 05/29/20 17:30 Temperature Temperature Source Pulse Rate 80 78 72 Pulse Rate from SpO2 Sensor 80 78 72 Respiratory Rate 18 18 12 Blood Pressure 106/55 L 101/54 L Blood Pressure Mean 77 70 Pulse Oximetry 95 95 97 Oxygen Delivery Method Sepsis Recent Fever Within 48 Hours Sepsis New/Unexplained Change in Mental Status Sepsis Action Taken by Nursing 05/29/20 17:31 05/29/20 18:00 05/29/20 18:01 Temperature Temperature Source Pulse Rate 73 76 75 Pulse Rate from SpO2 Sensor 73 77 75 Respiratory Rate 18 18 16 Blood Pressure 108/49 L Blood Pressure Mean 55 Pulse Oximetry 96 96 93 Oxygen Delivery Method Sepsis Recent Fever Within 48 Hours Sepsis New/Unexplained Change in Mental Status Sepsis Action Taken by Nursing Laboratory Data Result diagrams: 05/29/20 Unknown 05/29/20 Unknown Lab Results 05/29/20 05/29/20 05/29/20 Range/Units 15:03 15:47 16:12 WBC (4.8-10.8) K/uL RBC (4.7-6.1) M/uL Hgb (14.0-18.0) g/dL Hct (42-52) % MCV (80-100) fL MCH (25-34) pg MCHC (32-36) g/dL RDW Std Deviation (36.4-46.3) fL RDW Coeff of Maryanne (11.5-14.5) % Plt Count (130-400) K/uL MPV (7.4-10.4) fL Immature Gran % (Auto) % Neut % (Auto) % Lymph % (Auto) % [place] % (Auto) % Eos % (Auto) % Baso % (Auto) % Neut # (Auto) (1.4-6.5) K/uL Lymph # (Auto) (1.2-3.4) K/uL [place] # (Auto) (0.11-0.59) K/uL Eos # (Auto) (0-0.5) K/uL Baso # (Auto) (0-0.2) K/uL Immature Gran # (Auto) (0.00-0.02) K/uL Sodium (136-145) mmol/L Potassium (3.5-5.1) mmol/L Chloride (98-107) mmol/L Carbon Dioxide (21-32) mmol/L Anion Gap (3-11) BUN (7-18) mg/dl Creatinine (0.6-1.4) mg/dl Est Cr Clr Drug Dosing ml/min Est GFR ( Amer) Est GFR (Non-Af Amer) BUN/Creatinine Ratio (10-20) Glucose (70-99) mg/dl Lactate 2.6 H* (0.4-2.0) mmol/L Calcium (8.5-10.1) mg/dl Magnesium (1.8-2.4) mg/dl Total Bilirubin (0.2-1) mg/dl AST (15-37) U/L ALT (12-78) U/L Alkaline Phosphatase (45-117) U/L Troponin I (0-0.045) ng/ml Total Protein (6.4-8.2) gm/dl Albumin (3.4-5.0) gm/dl Globulin (2.5-4.0) gm/dl Albumin/Globulin Ratio (0.9-2) TSH (0.300-4.500) uIu/ml Urine Color Dark Yellow Urine Appearance Clear (Clear) Urine pH 5.0 (4.5-7.5) Ur Specific [place] 1.015 (1.000-1.030) Urine Protein 1+ H (Negative) Urine Glucose (UA) Negative (Negative) Urine Ketones Negative (Negative) Urine Blood Negative (Negative) Urine Nitrite Negative (Negative) Urine Bilirubin Negative (Negative) Urine Urobilinogen Negative (Negative) Ur Leukocyte Esterase Negative (Negative) Urine WBC (Auto) 1-5 (0-5) /hpf Urine RBC (Auto) 0-4 (0-4) /hpf U Hyaline Cast (Auto) 1-5 (0-5) /lpf U Epithel Cells (Auto) 5-10 H (0-5) /lpf Urine Bacteria (Auto) Negative (Negative) Urine Yeast Not Reportable COVID-19 Eval Order Covid19 [facility]Now [email or web address] SARS-CoV-2, RNA, NAAT (NEGATIVE) 05/29/20 05/29/20 05/29/20 Range/Units 16:12 18:06 Unknown WBC 7.92 (4.8-10.8) K/uL RBC 3.01 L (4.7-6.1) M/uL Hgb 8.0 L (14.0-18.0) g/dL Hct 25.8 L (42-52) % MCV 85.7 (80-100) fL MCH 26.6 (25-34) pg MCHC 31.0 L (32-36) g/dL RDW Std Deviation 53.0 H (36.4-46.3) fL RDW Coeff of Maryanne 16.9 H (11.5-14.5) % Plt Count 529 H (130-400) K/uL MPV 8.3 (7.4-10.4) fL Immature Gran % (Auto) 1.0 % Neut % (Auto) 71.6 % Lymph % (Auto) 15.3 % [place] % (Auto) 12.0 % Eos % (Auto) 0.0 % Baso % (Auto) 0.1 % Neut # (Auto) 5.67 (1.4-6.5) K/uL Lymph # (Auto) 1.21 (1.2-3.4) K/uL [place] # (Auto) 0.95 H (0.11-0.59) K/uL Eos # (Auto) 0.00 (0-0.5) K/uL Baso # (Auto) 0.01 (0-0.2) K/uL Immature Gran # (Auto) 0.08 H (0.00-0.02) K/uL Sodium (136-145) mmol/L Potassium (3.5-5.1) mmol/L Chloride (98-107) mmol/L Carbon Dioxide (21-32) mmol/L Anion Gap (3-11) BUN (7-18) mg/dl Creatinine (0.6-1.4) mg/dl Est Cr Clr Drug Dosing ml/min Est GFR ( Amer) Est GFR (Non-Af Amer) BUN/Creatinine Ratio (10-20) Glucose (70-99) mg/dl Lactate 1.9 (0.4-2.0) mmol/L Calcium (8.5-10.1) mg/dl Magnesium (1.8-2.4) mg/dl Total Bilirubin (0.2-1) mg/dl AST (15-37) U/L ALT (12-78) U/L Alkaline Phosphatase (45-117) U/L Troponin I (0-0.045) ng/ml Total Protein (6.4-8.2) gm/dl Albumin (3.4-5.0) gm/dl Globulin (2.5-4.0) gm/dl Albumin/Globulin Ratio (0.9-2) TSH (0.300-4.500) uIu/ml Urine Color Urine Appearance (Clear) Urine pH (4.5-7.5) Ur Specific [place] (1.000-1.030) Urine Protein (Negative) Urine Glucose (UA) (Negative) Urine Ketones (Negative) Urine Blood (Negative) Urine Nitrite (Negative) Urine Bilirubin (Negative) Urine Urobilinogen (Negative) Ur Leukocyte Esterase (Negative) Urine WBC (Auto) (0-5) /hpf Urine RBC (Auto) (0-4) /hpf U Hyaline Cast (Auto) (0-5) /lpf U Epithel Cells (Auto) (0-5) /lpf Urine Bacteria (Auto) (Negative) Urine Yeast COVID-19 Eval Order SARS-CoV-2, RNA, NAAT NEGATIVE (NEGATIVE) 05/29/20 Range/Units Unknown WBC (4.8-10.8) K/uL RBC (4.7-6.1) M/uL Hgb (14.0-18.0) g/dL Hct (42-52) % MCV (80-100) fL MCH (25-34) pg MCHC (32-36) g/dL RDW Std Deviation (36.4-46.3) fL RDW Coeff of Maryanne (11.5-14.5) % Plt Count (130-400) K/uL MPV (7.4-10.4) fL Immature Gran % (Auto) % Neut % (Auto) % Lymph % (Auto) % [place] % (Auto) % Eos % (Auto) % Baso % (Auto) % Neut # (Auto) (1.4-6.5) K/uL Lymph # (Auto) (1.2-3.4) K/uL [place] # (Auto) (0.11-0.59) K/uL Eos # (Auto) (0-0.5) K/uL Baso # (Auto) (0-0.2) K/uL Immature Gran # (Auto) (0.00-0.02) K/uL Sodium 131 L (136-145) mmol/L Potassium 3.6 (3.5-5.1) mmol/L Chloride 96 L (98-107) mmol/L Carbon Dioxide 23 (21-32) mmol/L Anion Gap 12.0 H (3-11) BUN 12 (7-18) mg/dl Creatinine 1.35 (0.6-1.4) mg/dl Est Cr Clr Drug Dosing 38.4 ml/min Est GFR ( Amer) 56.7 Est GFR (Non-Af Amer) 48.9 BUN/Creatinine Ratio 8.7 L (10-20) Glucose 115 H (70-99) mg/dl Lactate (0.4-2.0) mmol/L Calcium 9.2 (8.5-10.1) mg/dl Magnesium 1.7 L (1.8-2.4) mg/dl Total Bilirubin 0.5 (0.2-1) mg/dl AST 40 H (15-37) U/L ALT 18 (12-78) U/L Alkaline Phosphatase 129 H (45-117) U/L Troponin I 0.015 (0-0.045) ng/ml Total Protein 9.2 H (6.4-8.2) gm/dl Albumin 1.4 L (3.4-5.0) gm/dl Globulin 7.8 H (2.5-4.0) gm/dl Albumin/Globulin Ratio 0.2 L (0.9-2) TSH 1.180 (0.300-4.500) uIu/ml Urine Color Urine Appearance (Clear) Urine pH (4.5-7.5) Ur Specific [place] (1.000-1.030) Urine Protein (Negative) Urine Glucose (UA) (Negative) Urine Ketones (Negative) Urine Blood (Negative) Urine Nitrite (Negative) Urine Bilirubin (Negative) Urine Urobilinogen (Negative) Ur Leukocyte Esterase (Negative) Urine WBC (Auto) (0-5) /hpf Urine RBC (Auto) (0-4) /hpf U Hyaline Cast (Auto) (0-5) /lpf U Epithel Cells (Auto) (0-5) /lpf Urine Bacteria (Auto) (Negative) Urine Yeast COVID-19 Eval Order SARS-CoV-2, RNA, NAAT (NEGATIVE) Administered Medications Sodium Chloride (Nss 1000ml) 1,000 mls @ 125 mls/hr IV .Q8H STA Stop: 05/29/20 23:45 Last Admin: 05/29/20 16:07 Dose: 125 mls/hr Documented by: [id number] Discontinued Medications Acetaminophen (Acetaminophen 500 Mg Tab) 1,000 mg PO NOW STA Stop: 05/29/20 15:47 Last Admin: 05/29/20 16:08 Dose: 1,000 mg Documented by: [id number] Sodium Chloride (Nss 1000ml) 500 mls @ 999 mls/hr IV .Q31M ONE Stop: 05/29/20 16:16 Last Infusion: 05/29/20 16:44 Dose: 0 mls/hr Documented by: [id number] Admin: 05/29/20 16:08 Dose: 999 mls/hr Documented by: [id number] Sodium Chloride (Nss 1000ml) 1,000 mls @ 999 mls/hr IV .Q1H1M ONE Stop: 05/29/20 17:33 Last Admin: 05/29/20 16:44 Dose: 999 mls/hr Documented by: [id number] Cefepime HCl (Maxipime) 2,000 mg in 20 mls @ 5 mls/min IV NOW STA; Protocol Stop: 05/29/20 17:03 Last Admin: 05/29/20 17:58 Dose: 5 mls/min Documented by: [id number] Discharge Plan Visit Data Chief Complaint: Illness Stated Complaint: CONFUSIONS ED Provider: Delroy William Discharge Problem: Fever, Acute confusion, Pneumonitis, Elevated lactic acid level Forms Stand Alone Forms: My [facility] [employer] Prescriptions Prescriptions: No Action tramadol 50 mg tablet 50 mg PO DIRECTED PRN (Reason: Pain) RF: 0 metoprolol succinate 25 mg tablet extended release 24 hr 25 mg PO DAILY RF: 0 Eliquis 5 mg tablet 2.5 mg PO Q12H RF: 0 pantoprazole 40 mg tablet,delayed release (DR/EC) 40 mg PO QAM RF: 0 metoprolol succinate 25 mg tablet extended release 24 hr 12.5 mg PO HS RF: 0 gabapentin 300 mg capsule 300 mg PO BID RF: 0
[2020-05-29] MEDS ORDERED: ALUMINUM/MAGNESIUM SUSP 30 ML UDC PO PRN (20:26)
[2020-05-29] MEDS ORDERED: VANCOMYCIN CONSULT ACTIVE PRN (20:26)
[2020-05-29] MEDS ORDERED: SODIUM CHLORIDE 0.9% 1000ML 1,000 ML IV SCH (20:26)
[2020-05-29] MEDS ORDERED: ACETAMINOPHEN 325 MG TAB PO PRN (20:26)
[2020-05-29] MEDS ORDERED: POLYETHYLENE (MIRALAX) 17 GM PACK PO PRN (20:26)
[2020-05-29] MEDS ORDERED: ONDANSETRON INJ 2 MG/ML 2 ML VIAL IV PRN (20:26)
[2020-05-29] MEDS ORDERED: CEFEPIME CONSULT ACTIVE PRN (20:26)
[2020-05-29] MEDS ORDERED: MAGNESIUM HYDROXIDE SUSP 30 ML UDC PO PRN (20:26)
[2020-05-29] MEDS ORDERED: VANCOMYCIN HCL 1,500 MG in SODIUM CHLORIDE 0.9% 500 ML IV ONE (21:00)
[2020-05-29] MEDS: MAGNESIUM OXIDE 400 MG TAB PO SCH (21:51)
[2020-05-29] MEDS: GABAPENTIN 300 MG CAP PO SCH (21:51)
[2020-05-29] MEDS: APIXABAN 2.5 MG TAB PO SCH (21:52)
[2020-05-29] MEDS: METOPROLOL SUCC 25MG EXT REL TAB PO SCH (21:52)
[2020-05-30] MEDS: traMADol HCL 50 MG TABLET PO PRN ×2 (00:09→16:23)
[2020-05-30] MEDS ORDERED: oxyCODONE HCL IR 5 MG TAB (IMMEDIATE RELEASE) PO STA (01:41)
[2020-05-30] MEDS: CEFEPIME 2,000 MG in SYRINGE 0 ML IV SCH ×2 (05:02→17:24)
--- NOTE | 2020-05-30 06:59 | Electrocardiogram Report ---
Test Reason : Blood Pressure : / mmHG Vent. Rate : 084 BPM Atrial Rate : 084 BPM P-R Int : 184 ms QRS Dur : 126 ms QT Int : 390 ms P-R-T Axes : 073 -78 019 degrees QTc Int : 460 ms Poor data quality, interpretation may be adversely affected Sinus rhythm with Premature atrial complexes Right bundle branch block Left anterior fascicular block Bifascicular block Abnormal ECG When compared with ECG of 31-MAR-2019 19:53, Premature atrial complexes are now Present T wave inversion more evident in Anterior leads Confirmed by Isaac Alatorre ([id number]) on 05/30/2020 6:58:49 AM Referred By: REFERRED SELF Confirmed By:Isaac Alatorre
[2020-05-30 07:08] LABS: Basophils # (auto) 0.02 K/uL (0-0.2); Basophils % (auto) 0.3 %; Eosinophils # (auto) 0.05 K/uL (0-0.5); Eosinophils % (auto) 0.7 %; Hematocrit (blood only) 25.9 % (42-52); Immature Granulocytes # (auto) 0.04 K/uL (0.00-0.02); Immature Granulocytes % (auto) 0.6 %; Lymphocytes # (auto) 1.21 K/uL (1.2-3.4); Lymphocytes % (auto) 17.4 %; Mean Corpuscular Hemoglobin 26.7 pg (25-34); Mean Corpuscular Hgb Conc 30.9 g/dL (32-36); Mean Corpuscular Volume 86.3 fL (80-100); Mean Platelet Volume 8.1 fL (7.4-10.4); Monocytes # (auto) 0.88 K/uL (0.11-0.59); Monocytes % (auto) 12.6 %; Neutrophils # (auto) 4.76 K/uL (1.4-6.5); Neutrophils % (auto) 68.4 %; Platelet Count 545 K/uL (130-400); RDW Coefficient of Variation 17.1 % (11.5-14.5); RDW Standard Deviation 54.1 fL (36.4-46.3); White Blood Count 6.96 K/uL (4.8-10.8)
[2020-05-30] MEDS: METOPROLOL SUCC 25MG EXT REL TAB PO SCH ×2 (07:35→20:51)
[2020-05-30] MEDS: GABAPENTIN 300 MG CAP PO SCH ×2 (07:36→20:50)
[2020-05-30] MEDS: PANTOprazole 40 MG TAB PO SCH (07:36)
[2020-05-30] MEDS: MAGNESIUM OXIDE 400 MG TAB PO SCH ×2 (07:36→20:52)
[2020-05-30] MEDS: APIXABAN 2.5 MG TAB PO SCH ×2 (07:36→20:51)
[2020-05-30 07:40] LABS: Albumin Level 1.2 gm/dl (3.4-5.0); BUN Creatinine Ratio 10.5 (10-20); Calcium 9.2 mg/dl (8.5-10.1); Creatinine Clr Calc Pharmacy 39.6 ml/min; Est GFR (African American) 67.4; Est GFR (Non-African American) 58.1; Magnesium 1.8 mg/dl (1.8-2.4); Potassium 3.9 mmol/L (3.5-5.1)
[2020-05-30 07:43] LABS: Albumin Globulin Ratio 0.2 (0.9-2); Bilirubin,Total 0.6 mg/dl (0.2-1); Globulin 7.1 gm/dl (2.5-4.0); Total Protein 8.3 gm/dl (6.4-8.2)
--- NOTE | 2020-05-30 09:58 | Hospitalist Progress Note ---
Date of Service May 30, 2020 Assessment & Plan (1) Fever: (2) Pneumonitis: (3) Elevated lactic acid level: Pt presents w/ fever - at this moment etiology unclear - possible d/t infection vs. malignancy CXR suggestive of poss. pneumonitis recent hx of urinary retention and pt discharged w/ Leary catheter UA not c/w UTI Blood cltx - pending Ucltx- pending procal 0.36, will repeat Will repeat CXR, pt in no resp. distress however coughs with deep inspiration Encourage IS, add mucinex Recent hx of colonic polyp removal- two sessile serrated adenomas with dysplasia and one tubular adenoma Poss. 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 gentle hydration Repeat lactic acid down to 1.9 9from 2.6) Given Cefepime in Ed, will cont. added vancomycin on admission Follow cultx Clinically pt is doing well, afebrile, less somnolent (4) Paroxysmal atrial fibrillation: cont. home metoprolol and Eliquis (5) Anemia: - recently hospitalized, s/p EGD and colonoscopy - Hgb stable overall from previous admission , no signs of acute bleed - cont. to monitor (6) CKD (chronic kidney disease), stage III: - cont. to monitor - try to avoid nephrotoxic agents (7) GERD (gastroesophageal reflux disease): Sanchez's esophagus - cont. home PPI (8) DVT prophylaxis: - on Eliquis Code status - Do Not Intubate, ok CPR, shock, meds (discussed in detail w/ pt's ) Admission and Anticipated Discharge Date Admission Date: May 29, 2020 Subjective Pt seen in follow up of fever and weakness likely secondary to pneumonitis. Pt is sitting up in the chair, in NAD. He is awake and alert and does not appear to be somnolent. He reports he has been here for a long time even though he was just admitted yesterday. Currently denies any fever, chills, chest pain, shortness of breath, abd. pain, n/v. Review of Systems Review of Systems: All systems reviewed & are unremarkable except as noted in HPI & below Constitutional: + fatigue; no fever (however febrile in ED) and no chills Respiratory: + cough (w/ deep inspiration); no dyspnea Cardiovascular: no chest pain and no palpitations Gastrointestinal: no abdominal pain, no nausea and no vomiting Hematologic / Lymphatic: pt has known iliac mass for which he was supposed to follow up w/ oncology Physical Exam Constitutional: + thin and comfortable; no acute distress Eyes: PERRL, conjunctivae normal, anicteric sclerae ENMT: external ear and nose normal, oropharynx normal Neck: trachea midline, no thyromegaly normal visual inspection Respiratory: normal respiratory effort, lungs clear to auscultation no respiratory distress and no labored breathing Auscultation: no crackles, no rhonchi and no wheezes + pt coughs w/ deep inspiration Cardiovascular: RRR, no murmur, no edema Chest (Breasts): normal inspection/palpation of breasts Gastrointestinal (Abdomen): Inspection/Auscultation: abdomen normal to inspection and normal bowel sounds; abdomen not distended and no abdominal edema Percussion/Palpation: abdomen soft; abdomen nontender, no guarding and abdomen not rigid Musculoskeletal: no cyanosis or clubbing, extremities motor strength 5/5 Head/Neck/Chest: normocephalic, head atraumatic and neck supple Skin: no rashes, warm and dry Neurologic: PERRL, EOMI, accommodation nl, no face palsy, no dysarthria Psychiatric: A+Ox3, euthymic affect Genitourinary: no CVA tenderness Lymphatic: no lymphedema Results & Data Results & Data ([facility]) Vital Signs (Past 12 Hours) Vital Signs Temp Pulse Pulse Resp BP Pulse Ox 05/30/20 07:16 36.4 C L 66 20 117/63 95 05/30/20 05:11 36.6 C 71 18 120/66 94 05/30/20 00:00 70 05/29/20 23:00 36.4 C L 69 18 120/66 95 05/29/20 22:19 85 Laboratory Results 05/30/20 05/30/20 05/29/20 Range/Units 06:40 06:40 Unknown WBC 6.96 (4.8-10.8) K/uL RBC 3.00 L (4.7-6.1) M/uL Hgb 8.0 L (14.0-18.0) g/dL Hct 25.9 L (42-52) % MCV 86.3 (80-100) fL MCH 26.7 (25-34) pg MCHC 30.9 L (32-36) g/dL RDW Std Deviation 54.1 H (36.4-46.3) fL RDW Coeff of Maryanne 17.1 H (11.5-14.5) % Plt Count 545 H (130-400) K/uL MPV 8.1 (7.4-10.4) fL Immature Gran % (Auto) 0.6 % Neut % (Auto) 68.4 % Lymph % (Auto) 17.4 % Sullivan % (Auto) 12.6 % Eos % (Auto) 0.7 % Baso % (Auto) 0.3 % Neut # (Auto) 4.76 (1.4-6.5) K/uL Lymph # (Auto) 1.21 (1.2-3.4) K/uL Sullivan # (Auto) 0.88 H (0.11-0.59) K/uL Eos # (Auto) 0.05 (0-0.5) K/uL Baso # (Auto) 0.02 (0-0.2) K/uL Immature Gran # (Auto) 0.04 H (0.00-0.02) K/uL Sodium 137 131 L (136-145) mmol/L Potassium 3.9 3.6 (3.5-5.1) mmol/L Chloride 105 96 L (98-107) mmol/L Carbon Dioxide 23 23 (21-32) mmol/L Anion Gap 10.0 12.0 H (3-11) BUN 12 12 (7-18) mg/dl Creatinine 1.17 1.35 (0.6-1.4) mg/dl Est Cr Clr Drug Dosing 39.6 38.4 ml/min Est GFR ( Amer) 67.4 56.7 Est GFR (Non-Af Amer) 58.1 48.9 BUN/Creatinine Ratio 10.5 8.7 L (10-20) Glucose 101 H 115 H (70-99) mg/dl Lactate (0.4-2.0) mmol/L Calcium 9.2 9.2 (8.5-10.1) mg/dl Magnesium 1.8 1.7 L (1.8-2.4) mg/dl Total Bilirubin 0.6 0.5 (0.2-1) mg/dl AST 24 40 H (15-37) U/L ALT 13 18 (12-78) U/L Alkaline Phosphatase 102 129 H (45-117) U/L Troponin I 0.015 (0-0.045) ng/ml Total Protein 8.3 H 9.2 H (6.4-8.2) gm/dl Albumin 1.2 L 1.4 L (3.4-5.0) gm/dl Globulin 7.1 H 7.8 H (2.5-4.0) gm/dl Albumin/Globulin Ratio 0.2 L 0.2 L (0.9-2) Procalcitonin (0-0.5) ng/ml TSH 1.180 (0.300-4.500) uIu/ml Urine Color Urine Appearance (Clear) Urine pH (4.5-7.5) Ur Specific [place] (1.000-1.030) Urine Protein (Negative) Urine Glucose (UA) (Negative) Urine Ketones (Negative) Urine Blood (Negative) Urine Nitrite (Negative) Urine Bilirubin (Negative) Urine Urobilinogen (Negative) Ur Leukocyte Esterase (Negative) Urine WBC (Auto) (0-5) /hpf Urine RBC (Auto) (0-4) /hpf U Hyaline Cast (Auto) (0-5) /lpf U Epithel Cells (Auto) (0-5) /lpf Urine Bacteria (Auto) (Negative) Urine Yeast COVID-19 Eval Order SARS-CoV-2, RNA, NAAT (NEGATIVE) 05/29/20 05/29/20 05/29/20 Range/Units Unknown 18:06 16:12 WBC 7.92 (4.8-10.8) K/uL RBC 3.01 L (4.7-6.1) M/uL Hgb 8.0 L (14.0-18.0) g/dL Hct 25.8 L (42-52) % MCV 85.7 (80-100) fL MCH 26.6 (25-34) pg MCHC 31.0 L (32-36) g/dL RDW Std Deviation 53.0 H (36.4-46.3) fL RDW Coeff of Maryanne 16.9 H (11.5-14.5) % Plt Count 529 H (130-400) K/uL MPV 8.3 (7.4-10.4) fL Immature Gran % (Auto) 1.0 % Neut % (Auto) 71.6 % Lymph % (Auto) 15.3 % Sullivan % (Auto) 12.0 % Eos % (Auto) 0.0 % Baso % (Auto) 0.1 % Neut # (Auto) 5.67 (1.4-6.5) K/uL Lymph # (Auto) 1.21 (1.2-3.4) K/uL Sullivan # (Auto) 0.95 H (0.11-0.59) K/uL Eos # (Auto) 0.00 (0-0.5) K/uL Baso # (Auto) 0.01 (0-0.2) K/uL Immature Gran # (Auto) 0.08 H (0.00-0.02) K/uL Sodium (136-145) mmol/L Potassium (3.5-5.1) mmol/L Chloride (98-107) mmol/L Carbon Dioxide (21-32) mmol/L Anion Gap (3-11) BUN (7-18) mg/dl Creatinine (0.6-1.4) mg/dl Est Cr Clr Drug Dosing ml/min Est GFR ( Amer) Est GFR (Non-Af Amer) BUN/Creatinine Ratio (10-20) Glucose (70-99) mg/dl Lactate 1.9 (0.4-2.0) mmol/L Calcium (8.5-10.1) mg/dl Magnesium (1.8-2.4) mg/dl Total Bilirubin (0.2-1) mg/dl AST (15-37) U/L ALT (12-78) U/L Alkaline Phosphatase (45-117) U/L Troponin I (0-0.045) ng/ml Total Protein (6.4-8.2) gm/dl Albumin (3.4-5.0) gm/dl Globulin (2.5-4.0) gm/dl Albumin/Globulin Ratio (0.9-2) Procalcitonin (0-0.5) ng/ml TSH (0.300-4.500) uIu/ml Urine Color Urine Appearance (Clear) Urine pH (4.5-7.5) Ur Specific [place] (1.000-1.030) Urine Protein (Negative) Urine Glucose (UA) (Negative) Urine Ketones (Negative) Urine Blood (Negative) Urine Nitrite (Negative) Urine Bilirubin (Negative) Urine Urobilinogen (Negative) Ur Leukocyte Esterase (Negative) Urine WBC (Auto) (0-5) /hpf Urine RBC (Auto) (0-4) /hpf U Hyaline Cast (Auto) (0-5) /lpf U Epithel Cells (Auto) (0-5) /lpf Urine Bacteria (Auto) (Negative) Urine Yeast COVID-19 Eval Order SARS-CoV-2, RNA, NAAT NEGATIVE (NEGATIVE) 05/29/20 05/29/20 05/29/20 Range/Units 16:12 15:47 15:03 WBC (4.8-10.8) K/uL RBC (4.7-6.1) M/uL Hgb (14.0-18.0) g/dL Hct (42-52) % MCV (80-100) fL MCH (25-34) pg MCHC (32-36) g/dL RDW Std Deviation (36.4-46.3) fL RDW Coeff of Maryanne (11.5-14.5) % Plt Count (130-400) K/uL MPV (7.4-10.4) fL Immature Gran % (Auto) % Neut % (Auto) % Lymph % (Auto) % Sullivan % (Auto) % Eos % (Auto) % Baso % (Auto) % Neut # (Auto) (1.4-6.5) K/uL Lymph # (Auto) (1.2-3.4) K/uL Sullivan # (Auto) (0.11-0.59) K/uL Eos # (Auto) (0-0.5) K/uL Baso # (Auto) (0-0.2) K/uL Immature Gran # (Auto) (0.00-0.02) K/uL Sodium (136-145) mmol/L Potassium (3.5-5.1) mmol/L Chloride (98-107) mmol/L Carbon Dioxide (21-32) mmol/L Anion Gap (3-11) BUN (7-18) mg/dl Creatinine (0.6-1.4) mg/dl Est Cr Clr Drug Dosing ml/min Est GFR ( Amer) Est GFR (Non-Af Amer) BUN/Creatinine Ratio (10-20) Glucose (70-99) mg/dl Lactate 2.6 H* (0.4-2.0) mmol/L Calcium (8.5-10.1) mg/dl Magnesium (1.8-2.4) mg/dl Total Bilirubin (0.2-1) mg/dl AST (15-37) U/L ALT (12-78) U/L Alkaline Phosphatase (45-117) U/L Troponin I (0-0.045) ng/ml Total Protein (6.4-8.2) gm/dl Albumin (3.4-5.0) gm/dl Globulin (2.5-4.0) gm/dl Albumin/Globulin Ratio (0.9-2) Procalcitonin (0-0.5) ng/ml TSH (0.300-4.500) uIu/ml Urine Color Dark Yellow Urine Appearance Clear (Clear) Urine pH 5.0 (4.5-7.5) Ur Specific [place] 1.015 (1.000-1.030) Urine Protein 1+ H (Negative) Urine Glucose (UA) Negative (Negative) Urine Ketones Negative (Negative) Urine Blood Negative (Negative) Urine Nitrite Negative (Negative) Urine Bilirubin Negative (Negative) Urine Urobilinogen Negative (Negative) Ur Leukocyte Esterase Negative (Negative) Urine WBC (Auto) 1-5 (0-5) /hpf Urine RBC (Auto) 0-4 (0-4) /hpf U Hyaline Cast (Auto) 1-5 (0-5) /lpf U Epithel Cells (Auto) 5-10 H (0-5) /lpf Urine Bacteria (Auto) Negative (Negative) Urine Yeast Not Reportable COVID-19 Eval Order Covid19 IDNow [email or web address] SARS-CoV-2, RNA, NAAT (NEGATIVE) 05/29/20 Range/Units 15:00 WBC (4.8-10.8) K/uL RBC (4.7-6.1) M/uL Hgb (14.0-18.0) g/dL Hct (42-52) % MCV (80-100) fL MCH (25-34) pg MCHC (32-36) g/dL RDW Std Deviation (36.4-46.3) fL RDW Coeff of Maryanne (11.5-14.5) % Plt Count (130-400) K/uL MPV (7.4-10.4) fL Immature Gran % (Auto) % Neut % (Auto) % Lymph % (Auto) % Sullivan % (Auto) % Eos % (Auto) % Baso % (Auto) % Neut # (Auto) (1.4-6.5) K/uL Lymph # (Auto) (1.2-3.4) K/uL Sullivan # (Auto) (0.11-0.59) K/uL Eos # (Auto) (0-0.5) K/uL Baso # (Auto) (0-0.2) K/uL Immature Gran # (Auto) (0.00-0.02) K/uL Sodium (136-145) mmol/L Potassium (3.5-5.1) mmol/L Chloride (98-107) mmol/L Carbon Dioxide (21-32) mmol/L Anion Gap (3-11) BUN (7-18) mg/dl Creatinine (0.6-1.4) mg/dl Est Cr Clr Drug Dosing ml/min Est GFR ( Amer) Est GFR (Non-Af Amer) BUN/Creatinine Ratio (10-20) Glucose (70-99) mg/dl Lactate (0.4-2.0) mmol/L Calcium (8.5-10.1) mg/dl Magnesium (1.8-2.4) mg/dl Total Bilirubin (0.2-1) mg/dl AST (15-37) U/L ALT (12-78) U/L Alkaline Phosphatase (45-117) U/L Troponin I (0-0.045) ng/ml Total Protein (6.4-8.2) gm/dl Albumin (3.4-5.0) gm/dl Globulin (2.5-4.0) gm/dl Albumin/Globulin Ratio (0.9-2) Procalcitonin 0.36 (0-0.5) ng/ml TSH (0.300-4.500) uIu/ml Urine Color Urine Appearance (Clear) Urine pH (4.5-7.5) Ur Specific [place] (1.000-1.030) Urine Protein (Negative) Urine Glucose (UA) (Negative) Urine Ketones (Negative) Urine Blood (Negative) Urine Nitrite (Negative) Urine Bilirubin (Negative) Urine Urobilinogen (Negative) Ur Leukocyte Esterase (Negative) Urine WBC (Auto) (0-5) /hpf Urine RBC (Auto) (0-4) /hpf U Hyaline Cast (Auto) (0-5) /lpf U Epithel Cells (Auto) (0-5) /lpf Urine Bacteria (Auto) (Negative) Urine Yeast COVID-19 Eval Order SARS-CoV-2, RNA, NAAT (NEGATIVE) Medications Administered Current Inpatient Medications Acetaminophen (Acetaminophen 325 Mg Tab) 650 mg PO Q4H PRN PRN Reason: Pain or Fever Stop: 06/28/20 20:25 Last Admin: 05/29/20 22:41 Dose: 650 mg Documented by: Al Hydrox/Mg Hydrox/Simethicone (Aluminum/Magnesium Susp 30 Ml Udc) 15 ml PO Q4H PRN PRN Reason: Dyspepsia Stop: 06/28/20 20:25 Apixaban (Apixaban 2.5 Mg Tab) 2.5 mg PO Q12H [facility] Stop: 06/28/20 20:59 Last Admin: 05/30/20 07:36 Dose: 2.5 mg Documented by: Gabapentin (Gabapentin 300 Mg Cap) 300 mg PO BID [facility] Stop: 06/28/20 20:59 Last Admin: 05/30/20 07:36 Dose: 300 mg Documented by: Cefepime HCl 2,000 mg/ Syringe 20 mls @ 5 mls/min IV Q12H [facility]; Protocol Stop: 06/01/20 05:59 Last Admin: 05/30/20 05:02 Dose: 5 mls/min Documented by: Vancomycin HCl 1,250 mg/ (Sodium Chloride) 275 mls @ 200 mls/hr IV Q24H [facility] Stop: 05/31/20 20:59 Magnesium Hydroxide (Magnesium Hydroxide Susp 30 Ml Udc) 30 ml PO Q12H PRN PRN Reason: Constipation Stop: 06/28/20 20:25 Magnesium Oxide (Magnesium Oxide 400 Mg Tab) 400 mg PO BID [facility] Stop: 06/28/20 20:59 Last Admin: 05/30/20 07:36 Dose: 400 mg Documented by: Metoprolol Succinate (Metoprolol Succ 25mg Ext Rel Tab) 12.5 mg PO HS [facility] Stop: 06/28/20 20:59 Last Admin: 05/29/20 21:52 Dose: 12.5 mg Documented by: Metoprolol Succinate (Metoprolol Succ 25mg Ext Rel Tab) 25 mg PO DAILY [facility] Stop: 06/29/20 08:59 Last Admin: 05/30/20 07:35 Dose: 25 mg Documented by: Miscellaneous Information (Cefepime Consult Active) 1 ea N/A UD PRN PRN Reason: Consult Stop: 06/28/20 20:25 Miscellaneous Information (Vancomycin Consult Active) 1 ea N/A UD PRN PRN Reason: Consult Stop: 06/28/20 20:25 Ondansetron HCl (Ondansetron Inj 2 Mg/Ml 2 Ml Vial) 4 mg IV Q6H PRN PRN Reason: Nausea Stop: 06/28/20 20:25 Pantoprazole Sodium (Pantoprazole 40 Mg Tab) 40 mg PO [facility] Stop: 06/29/20 08:59 Last Admin: 05/30/20 07:36 Dose: 40 mg Documented by: Polyethylene Glycol (Polyethylene (Miralax) 17 Gm Pack) 17 gm PO DAILY PRN PRN Reason: Constipation Stop: 06/28/20 20:25 Tramadol HCl (Tramadol Hcl 50 Mg Tablet) 50 mg PO Q6H PRN PRN Reason: Pain Stop: 06/28/20 20:25 Last Admin: 05/30/20 00:09 Dose: 50 mg Documented by:
[2020-05-30] MEDS: guaiFENesin 600 MG TABCR PO SCH (20:51)
[2020-05-30] MEDS ORDERED: VANCOMYCIN HCL 1,250 MG in SODIUM CHLORIDE 0.9% 250 ML IV SCH (21:00)
[2020-05-31] MEDS: CEFEPIME 2,000 MG in SYRINGE 0 ML IV SCH (05:16)
[2020-05-31] MEDS: PANTOprazole 40 MG TAB PO SCH (08:34)
[2020-05-31] MEDS: APIXABAN 2.5 MG TAB PO SCH (08:35)
[2020-05-31] MEDS: GABAPENTIN 300 MG CAP PO SCH (08:35)
[2020-05-31] MEDS: MAGNESIUM OXIDE 400 MG TAB PO SCH (08:35)
[2020-05-31] MEDS: METOPROLOL SUCC 25MG EXT REL TAB PO SCH (08:35)
[2020-05-31] MEDS: guaiFENesin 600 MG TABCR PO SCH (08:35)
--- NOTE | 2020-05-31 09:03 | Hospitalist Progress Note ---
Date of Service May 31, 2020 Assessment & Plan (1) Fever: (2) Pneumonitis: (3) Elevated lactic acid level: Pt presents w/ fever - at this moment etiology unclear - possible d/t infection vs. malignancy Most likely d/t pneumonitis CXR c/w pneumonitis Recent hx of urinary retention and pt discharged w/ Leary catheter UA not c/w UTI Blood cltx - pending Ucltx- pending procal 0.36, will repeat Will repeat CXR, pt in no resp. distress however coughs with deep inspiration Encourage Inct. Spirometer, fluter valve, mucinex Recent hx of colonic polyp removal- two sessile serrated adenomas with dysplasia and one tubular adenoma Poss. 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 gentle hydration Repeat lactic acid down to 1.9 (from 2.6) Given Cefepime in ED, continued w/ added vancomycin on admission, will stop now, will switch to PO Augmentin Follow cultx Clinically pt is doing well, afebrile, not somnolent any more (4) Paroxysmal atrial fibrillation: cont. home metoprolol and Eliquis (5) Anemia: - recently hospitalized, s/p EGD and colonoscopy - Hgb stable overall from previous admission , no signs of acute bleed - cont. to monitor (6) CKD (chronic kidney disease), stage III: - cont. to monitor - try to avoid nephrotoxic agents (7) GERD (gastroesophageal reflux disease): Sanchez's esophagus - cont. home PPI (8) DVT prophylaxis: - on Eliquis Code status - Do Not Intubate, ok CPR, shock, meds (discussed in detail w/ pt's ) Admission and Anticipated Discharge Date Admission Date: May 29, 2020 Subjective Pt seen in follow up of fever and weakness likely secondary to pneumonitis. Pt reports he is feeling much better and is very anxious to be discharged home. discussed w/ who reports she can take care of him and that it would be better for his anxiety if he was at home. In agreement that pt needs to see oncologist as already scheduled and that he will need to follow up w/ family doctor. Final cultx pending and will need to be followed up. Pt is sitting up in the chair, in NAD. He is awake and alert and does not appear to be somnolent. He reports he has been here for a long time even though he was just admitted yesterday. Currently denies any fever, chills, chest pain, shortness of breath, abd. pain, n/v. Review of Systems Review of Systems: All systems reviewed & are unremarkable except as noted in HPI & below Constitutional: + fatigue; no fever (however febrile in ED) and no chills Respiratory: + cough (w/ deep inspiration); no dyspnea Cardiovascular: no chest pain and no palpitations Gastrointestinal: no abdominal pain, no nausea and no vomiting Hematologic / Lymphatic: pt has known iliac mass for which he was supposed to follow up w/ oncology Physical Exam Constitutional: WD/WN, vitals as above + thin and comfortable; no acute distress Eyes: PERRL, conjunctivae normal, anicteric sclerae ENMT: external ear and nose normal, oropharynx normal Neck: trachea midline, no thyromegaly normal visual inspection Respiratory: normal respiratory effort, lungs clear to auscultation no respiratory distress and no labored breathing Auscultation: no crackles, no rhonchi and no wheezes Cardiovascular: RRR, no murmur, no edema Chest (Breasts): normal inspection/palpation of breasts Gastrointestinal (Abdomen): Inspection/Auscultation: abdomen normal to inspection and normal bowel sounds; abdomen not distended and no abdominal edema Percussion/Palpation: abdomen soft; abdomen nontender, no guarding and abdomen not rigid Musculoskeletal: no cyanosis or clubbing, extremities motor strength 5/5 Head/Neck/Chest: normocephalic, head atraumatic and neck supple Skin: no rashes, warm and dry Neurologic: PERRL, EOMI, accommodation nl, no face palsy, no dysarthria Psychiatric: A+Ox3, euthymic affect Genitourinary: no CVA tenderness Lymphatic: no lymphedema Results & Data Results & Data ([facility]) Vital Signs (Past 12 Hours) Vital Signs Temp Pulse Pulse Resp BP Pulse Ox 05/31/20 07:39 37.0 C 79 18 114/72 98 05/31/20 07:17 70 05/31/20 03:04 36.3 C L 74 16 105/54 L 93 05/31/20 02:12 72 05/30/20 23:46 36.6 C 57 L 18 161/64 H 97 Medications Administered Current Inpatient Medications Acetaminophen (Acetaminophen 325 Mg Tab) 650 mg PO Q4H PRN PRN Reason: Pain or Fever Stop: 06/28/20 20:25 Last Admin: 05/29/20 22:41 Dose: 650 mg Documented by: Al Hydrox/Mg Hydrox/Simethicone (Aluminum/Magnesium Susp 30 Ml Udc) 15 ml PO Q4H PRN PRN Reason: Dyspepsia Stop: 06/28/20 20:25 Apixaban (Apixaban 2.5 Mg Tab) 2.5 mg PO Q12H [facility] Stop: 06/28/20 20:59 Last Admin: 05/31/20 08:35 Dose: 2.5 mg Documented by: Gabapentin (Gabapentin 300 Mg Cap) 300 mg PO BID [facility] Stop: 06/28/20 20:59 Last Admin: 05/31/20 08:35 Dose: 300 mg Documented by: Guaifenesin (Guaifenesin 600 Mg Tabcr) 600 mg PO Q12 [facility] Stop: 06/29/20 20:59 Last Admin: 05/31/20 08:35 Dose: 600 mg Documented by: Cefepime HCl 2,000 mg/ Syringe 20 mls @ 5 mls/min IV Q12H [facility]; Protocol Stop: 06/01/20 05:59 Last Admin: 05/31/20 05:16 Dose: 5 mls/min Documented by: Vancomycin HCl 1,250 mg/ (Sodium Chloride) 275 mls @ 200 mls/hr IV Q24H [facility] Stop: 05/31/20 20:59 Last Infusion: 05/30/20 22:50 Dose: Infused Documented by: Magnesium Hydroxide (Magnesium Hydroxide Susp 30 Ml Udc) 30 ml PO Q12H PRN PRN Reason: Constipation Stop: 06/28/20 20:25 Magnesium Oxide (Magnesium Oxide 400 Mg Tab) 400 mg PO BID [facility] Stop: 06/28/20 20:59 Last Admin: 05/31/20 08:35 Dose: 400 mg Documented by: Metoprolol Succinate (Metoprolol Succ 25mg Ext Rel Tab) 12.5 mg PO HS [facility] Stop: 06/28/20 20:59 Last Admin: 05/30/20 20:51 Dose: 12.5 mg Documented by: Metoprolol Succinate (Metoprolol Succ 25mg Ext Rel Tab) 25 mg PO DAILY [facility] Stop: 06/29/20 08:59 Last Admin: 05/31/20 08:35 Dose: 25 mg Documented by: Miscellaneous Information (Cefepime Consult Active) 1 ea N/A UD PRN PRN Reason: Consult Stop: 06/28/20 20:25 Miscellaneous Information (Vancomycin Consult Active) 1 ea N/A UD PRN PRN Reason: Consult Stop: 06/28/20 20:25 Ondansetron HCl (Ondansetron Inj 2 Mg/Ml 2 Ml Vial) 4 mg IV Q6H PRN PRN Reason: Nausea Stop: 06/28/20 20:25 Pantoprazole Sodium (Pantoprazole 40 Mg Tab) 40 mg PO QAM [facility] Stop: 06/29/20 08:59 Last Admin: 05/31/20 08:34 Dose: 40 mg Documented by: Polyethylene Glycol (Polyethylene (Miralax) 17 Gm Pack) 17 gm PO DAILY PRN PRN Reason: Constipation Stop: 06/28/20 20:25 Tramadol HCl (Tramadol Hcl 50 Mg Tablet) 50 mg PO Q6H PRN PRN Reason: Pain Stop: 06/28/20 20:25 Last Admin: 05/30/20 16:23 Dose: 50 mg Documented by:
--- NOTE | 2020-05-31 09:39 | XRay Report ---
XR chest 1V portable HISTORY: 79 years-old Male follow up follow-up study in a patient with acute weakness and subtle int erstitial opacities COMPARISON: Chest radiograph 05/29/2020 TECHNIQUE: Portable AP view of the chest FINDINGS: Cardiac silhouette is enlarged. Left subclavian pacer. Calcified plaque of the thoracic aortic arch. Mild interstitial coarsening redemonstrated. No pneumothorax. Mildly progressed left lung base opacit ies with trace left pleural effusion. Degenerative changes of the shoulders and spine. IMPRESSION: 1. Mildly progressed left lung base opacities suspicious for pneumonia with trace left pleural effusi on. 2. Cardiomegaly with mild interstitial coarsening. ACT 112: Negative or not required by law. The above report was generated using voice recognition software. It may contain grammatical, syntax o r spelling errors. Electronically signed by: German Solomon M.D. 05/31/2020 9:38 AM
--- NOTE | 2020-05-31 11:08 | Discharge Summary ---
Date of Service May 31, 2020 Admission HPI Per Admitting Provider Pt is an 79-year-old male with hx of paroxysmal atrial fibrillation anticoagulated on Eliquis, sinus node dysfunction s/p pacemaker, R illiac mass (found on outside CT, and to be followed by oncology), who was recently hospitalized for anemia and urinary retention. At that time Leary catheter was placed by urology. He also underwent EGD and colonoscopy with with GI (05/11/20) - Esophagitis LA grade A, biopsied. 2 sessile polyps found in colon removed, clips placed. Final biopsy results - colonoscopy with two sessile serrated adenomas with dysplasia and one tubular adenoma removed. EGD showed Barretts esophagus. GI followed up with the pt via telemedicine visit and recommend follow up colonoscopy in 4-6 weeks and continuing PO PPI. Pt was also found "1.Large destructive soft tissue mass lesion of the right ilium. Differential dg. include metastatic disease, myeloma and lymphoma. Primary bone tumor is less likely statistically. Recommend oncologic evaluation and tissue sampling. 2. Enlarged right internal iliac chain lymph node measures 1.1. cm 3. Enlarged prostate", at outside hospital CT abd/ pelvis (at [facility]). Pt was supposed to follow up with oncologist for right iliac mass. The appointment was cancelled by the as pt was hospitalized here at [facility]. Pt now presents due to excessive sleepiness. He was doing well after hospital discharge and was followed up with his PCP and GI. His Leary catheter was removed by home nurse and reportedly he was urinating well, however the Leary stayed longer than initially recommended by urology (per he had catheter placed for at least 10 days). He is supposed to see oncologist on Tuesday (appointment was unfortunately cancelled before). Pt started to feel more somnolent several days ago but felt most fatigued today and therefore asked his to bring him to the hospital. Today he also had a fever and this was confirmed in the ED where he was found febrile 38.4C. Pt is a poor historian, thinks he was in the hospital long time ago, does not think it was just last April. Most hx obtained from pt's and per chart review. Pt denies any chest pain, shortness of breath, cough, abd. pain, nausea or vomiting. Denies blood in stool or urine. Denies difficulty w/ urination. In the ED, CXR was obtained and CT head. His lactate was elevated at 2.6, WBC wnl. He was given IVF and cefepime. received tylenol for fever. Admission Exam Per Admitting Provider Constitutional: WD/WN, vitals as above Eyes: PERRL, conjunctivae normal, anicteric sclerae ENMT: external ear and nose normal, oropharynx normal Neck: trachea midline, no thyromegaly normal visual inspection Respiratory: normal respiratory effort, lungs clear to auscultation no respiratory distress and no labored breathing Auscultation: no crackles, no rhonchi and no wheezes Cardiovascular: RRR, no murmur, no edema Chest (Breasts): normal inspection/palpation of breasts Gastrointestinal (Abdomen): Inspection/Auscultation: abdomen normal to inspection and normal bowel sounds; abdomen not distended and no abdominal edema Percussion/Palpation: abdomen soft; abdomen nontender, no guarding and abdomen not rigid Musculoskeletal: no cyanosis or clubbing, extremities motor strength 5/5 Head/Neck/Chest: normocephalic, head atraumatic and neck supple Skin: no rashes, warm and dry Neurologic: PERRL, EOMI, accommodation nl, no face palsy, no dysarthria Psychiatric: A+Ox3, euthymic affect Genitourinary: no CVA tenderness Lymphatic: no lymphedema Principal Diagnosis Fever likely secondary to pneumonitis Protein calorie malnutrition, likely in the setting of malignancy Discharge Exam Constitutional WD/WN, vitals as above + thin and comfortable; no acute distress Eyes PERRL, conjunctivae normal, anicteric sclerae ENMT external ear and nose normal, oropharynx normal Neck trachea midline, no thyromegaly normal visual inspection Respiratory normal respiratory effort, lungs clear to auscultation no respiratory distress and no labored breathing Auscultation: no crackles, no rhonchi and no wheezes Cardiovascular RRR, no murmur, no edema Chest (Breasts) normal inspection/palpation of breasts Gastrointestinal (Abdomen) Inspection/Auscultation: abdomen normal to inspection and normal bowel sounds; abdomen not distended and no abdominal edema Percussion/Palpation: abdomen soft; abdomen nontender, no guarding and abdomen not rigid Musculoskeletal no cyanosis or clubbing, extremities motor strength 5/5 Head/Neck/Chest: normocephalic, head atraumatic and neck supple Skin no rashes, warm and dry Neurologic PERRL, EOMI, accommodation nl, no face palsy, no dysarthria Psychiatric A+Ox3, euthymic affect Genitourinary no CVA tenderness Lymphatic no lymphedema Discharge Data Allergies Allergy/AdvReac Type Severity Reaction Status Date / Time No Known Allergies Allergy Verified 05/29/20 17:13 Consultations 05/29/20 18:22 ED Decision to Admit Stat 05/29/20 20:26 Consult Case Management - Discharge Planning Routine Consult Health Information Management Stat Ordered Studies 05/29/20 15:36 CT head/brain wo con Stat Hospital Course (1) Fever: (2) Pneumonitis: (3) Elevated lactic acid level: Pt presents w/ fever - at this moment etiology unclear - possible d/t inf ection vs. malignancy Most likely d/t pneumonitis CXR c/w pneumonitis Recent hx of urinary retention and pt discharged w/ Leary catheter UA not c/w UTI Blood cltx - pending Ucltx- pending procal 0.36, will repeat Will repeat CXR, pt in no resp. distress however coughs with deep inspiration Encourage Inct. Spirometer, fluter valve, mucinex Recent hx of colonic polyp removal- two sessile serrated adenomas with dysplasia and one tubular adenoma Poss. 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 gentle hydration Repeat lactic acid down to 1.9 (from 2.6) Given Cefepime in ED, continued w/ added vancomycin on admission, will stop now, will switch to PO Augmentin Follow cultx Clinically pt is doing well, afebrile, not somnolent any more Protein-calorie malnutrition -likely in the setting of malignancy -recent weight loss -consult dietitian (4) Paroxysmal atrial fibrillation: cont. home metoprolol and Eliquis (5) Anemia: - recently hospitalized, s/p EGD and colonoscopy - Hgb stable overall from previous admission , no signs of acute bleed - cont. to monitor (6) CKD (chronic kidney disease), stage III: - cont. to monitor - try to avoid nephrotoxic agents (7) GERD (gastroesophageal reflux disease): Sanchez's esophagus - cont. home PPI (8) DVT prophylaxis: - on Eliquis Code status - Do Not Intubate, ok CPR, shock, meds (discussed in detail w/ pt's ) Total Time Total Time Spent Total Time Spent (In Minutes): 35 Total Time Includes: Examination of the Patient, Discharge Planning and Medication Reconciliation Discharge Plan Discharge Items Patient Disposition: Home - Self-Care Reason For Visit: LACTIC ACIDOSIS Discharge Diagnosis: Fever likely secondary to pneumonitis Protein calorie malnutrition, likely in the setting of malignancy Activity: Per Instructions section Non-emergency contact: Primary Care Provider Call non-emergency contact if: you have any medication questions and your symptoms worsen Follow-up/Referrals: Rito Awad [Primary Care Provider] - Diet: Regular Addtl Attending Provider Instructions: Follow up with your family doctor within 2 weeks. Make sure to follow up with your oncologist on Tuesday as already scheduled. Take antibiotic - Augmentin, as prescribed. In addition take mucinex as prescribed. Make sure to use spirometer and flutter valve (given to you in the hospital) every 1-2 hrs. Pending Studies at Discharge: Yes Studies:: Final blood cultx Stand-Alone Forms: My [facility] [employer], Smoking Cessation Medications and DC Order Prescriptions: New amoxicillin-pot clavulanate [Augmentin] 875-125 mg Tablet 1 tab PO BIDM 5 Days Qty: 10 RF: 0 guaifenesin [Mucinex] 600 mg Tablet Extended Release 12hr 600 mg PO Q12 10 Days Qty: 20 RF: 0 Continued tramadol 50 mg tablet 50 mg PO DIRECTED PRN (Reason: Pain) RF: 0 metoprolol succinate 25 mg tablet extended release 24 hr 25 mg PO DAILY RF: 0 Eliquis 5 mg tablet 2.5 mg PO Q12H RF: 0 pantoprazole 40 mg tablet,delayed release (DR/EC) 40 mg PO QAM RF: 0 metoprolol succinate 25 mg tablet extended release 24 hr 12.5 mg PO HS RF: 0 gabapentin 300 mg capsule 300 mg PO BID RF: 0 Discharge Orders: Discharge Order (Routine); Ordered 05/31/20 Ordered By: Elliot Waterman Admission Data Admit Date/Time: 05/29/20 18:34 Attending Provider: Elliot Waterman Admit Provider: Elliot Waterman Primary Care Provider: Rito Awad Other Providers: Elliot Waterman
[2020-05-31] MEDS ORDERED: AMOXICILLIN/CLAVULANATE 875 MG TAB PO SCH (17:00)
== END 2020-05-31 15:32 | disposition home or self-care (01) | DRG 193 ==
LOC: ED 15:06 → 2W 18:34

== ENCOUNTER 2020-06-07 15:57 | Inpatient (IN) ==
--- NOTE | 2020-06-07 16:09 | Emergency Department Note ---
Impression & Plan Weakness, Pneumonitis, Acute dehydration, Acidosis, lactic, Hypomagnesemia ED Provider Note NAME: MORE NELSON AGE: 79 SEX: M : 1940 ARRIVES VIA: Walk-In INFORMANT: Patient, ED PROVIDER(S): Heri Smith MD Chief Complaint: Fever HPI: Patient does present with his . Patient was recently hospitalized for anemia and urinary retention. Patient had presented due to excessive sleepiness. Use cefepime and Tylenol due to concern for fever May 29. Patient had a pneumonitis with elevated lactate at that time. Urinalysis had been negative for UTI. Patient's blood and urine cultures during his hospital stay were negative. Patient reportedly yesterday had a fever greater than 100. The patient's does not quite remember. He did receive 1 Tylenol yesterday and then today she stated that he also had a temperature again. Patient does not recall the temperature at home. The patient is af ebrile upon presentation. Patient has had increasing fatigue has been sleeping a lot more. The patient has had a cough that has been nonproductive. The patient did recently finish a course of antibiotics for his pneumonitis yesterday. Patient currently denies any chills chest pains, shortness of breath, nausea, vomiting, abdominal pain, back pain, extremity pain, groin pain dysuria, hematuria or difficulty with bowel movements or blood in the stool. She has had multiple negative Covid test. The patient did receive a flu shot this season. ROS: See HPI for pertinent positives and negatives. A total of 10 systems were reviewed and otherwise negative. Past medical history: See below Surgical history: See below Social history: See below Physical Exam: GENERAL: Thin in appearance, wearing a mask. NAD, non-toxic. EYE EXAM: Normal conjunctiva. PERRL, no anisocoria and EOM's grossly intact w/o pain. Chest: Device in left chest. NECK: Supple, no nuchal rigidity, no adenopathy, non-tender. No signs of meningismus. LUNGS: Clear to auscultation. Normal chest wall mechanics. HEART: NSR, no MRG. ABDOMEN: Abdomen soft, non-tender, normo-active bowel sounds, no masses, no rebound or guarding. BACK: No CVA TTP. SKIN: No rashes and no bruising. UPPER EXTREMITIES: Upper extremities are grossly normal. LOWER EXTREMITIES: Grossly normal, no edema. NEURO EXAM: A&O x3, cranial nerves II-XII grossly intact, normal speech, moves all 4 extremities on command w/o issue. Differential diagnoses: Infection, dehydration, metabolic abnormality, hypo/hyperglycemia, electrolyte disturbance, anemia, hypoxia, cardiac sources, intracerebral event, toxicologic, neurologic, as well as other pathologies. Course: Patient was seen and evaluated the bedside. Full history physical exam was per formed. EKG: Indication: Weakness Imaging Studies: Radiology results as stated below per my review in the radiologist's interpretation: XR chest 1V portable CLINICAL HISTORY: SEPSIS COMPARISON STUDY: Chest radiograph May 31, 2020. FINDINGS: Dual-lead left subclavian pacemaker is noted. There is mild cardiomegaly. There is no pneumothorax. Small left and trace right pleural effusions are noted. Bibasilar opacities have increased. There is no evidence for pulmonary edema. IMPRESSION: 1. Increase in bibasilar opacities which favor an infectious process. 2. Small left and trace right pleural effusions. ACT 112: Negative or not required by law. Electronically signed by: Jeremiah Gray M.D. 06/07/2020 5:08 PM Dictated: 06/07/201705 Transcribed: 06/07/201705 Cardiac monitoring: An order was placed for continuous cardiac monitoring. The monitor shows a rate of 95 with sinus rhythm. MDM: Patient did present concern for temperature. Blood work is obtained along with EKG troponin chest x-ray urinalysis and the patient was given IV fluids. The patient has no acute symptomatic complaints at the bedside. Patient is chronic chronic and stable anemia with a hemoglobin of 8.2. Patient's white count is normal. The patient does not have any evidence of left shift or lymphopenia. Patient does have mild hyponatremia. Magnesium is slightly low at 1.7. The patient did receive IV fluids. Troponin is undetectable. Tray does show increase in bibasilar opacities. Patient does have a small left and trace right pleural effusion. Patient has mild lactate of 2.3. Procalcitonin is not elevated. I did speak with the and she is concerned about his worsening fatigue and likely failure to thrive. The patient is only 50 kg. He has been to the alcohol hospitalist ALEXIS Seo. Deferring antibiotics until result of the pro-Bry which is 0.5. Patient is also pending urinalysis. Patient did receive 2 L of IV fluids and the [facility] Past Med/Surg History Medical History (Updated 06/07/20 @ 19:14 by ALEXIS Rodriguez) Barretts esophagus CKD (chronic kidney disease), stage III Colon polyps GERD (gastroesophageal reflux disease) Pacemaker Paroxysmal atrial fibrillation Sinus node dysfunction Surgical History History of total right hip replacement Family History Other Family history non-contributory Social History Smoking Status: Never smoker Second Hand Exposure: No; Do You Dip or Chew Tobacco: No; Tobacco Cessation Education Requested by Patient: No Hx Alcohol Use: No Hx Substance Use: No Preferred Language: Japanese Communication Ability: Effective Hearing Ability: Normal Ground Crew Supervisor Required: No Beliefs That Will Affect Care: None marital status: Current Living Situation: Spouse current occupational status: employed Other Information That Helps Us Care for You: No Feels Safe at Home: Yes Safety Concerns: Feels Safe At This Time Assistive Devices: Walker Allergies Allergies Allergy/AdvReac Type Severity Reaction Status Date / Time No Known Allergies Allergy Verified 06/07/20 18:29 Home Meds Home Medications Medication Instructions Recorded Confirmed gabapentin 300 mg PO BID 06/25/18 06/07/20 Eliquis 2.5 mg PO Q12H 05/09/20 06/07/20 metoprolol succinate 25 mg PO QAM 05/09/20 06/07/20 pantoprazole 40 mg PO QAM 05/09/20 06/07/20 tramadol 50 mg PO DIRECTED PRN 05/09/20 06/07/20 metoprolol succinate 12.5 mg PO HS 05/29/20 06/07/20 Previous Rx's Medication Instructions Recorded guaifenesin [Mucinex] 600 mg PO Q12 10 Days #20 tab 05/31/20 Results & Data (ED) Vital Signs Vital Signs - 24 hr 06/07/20 15:59 06/07/20 16:40 06/07/20 16:43 Temperature 36 C L Temperature Source Oral Pulse Rate 95 H 86 83 Pulse Rate [Apical] Pulse Rate from SpO2 Sensor 85 Respiratory Rate 20 22 22 Respiratory Effort / Characteristics Non-Labored Respiratory Depth Normal Respiratory Pattern Blood Pressure 109/51 L 113/57 L Blood Pressure [Right Arm] Blood Pressure Mean 70 60 Blood Pressure Mean [Right Arm] Pulse Oximetry 95 95 96 Oxygen Delivery Method Room Air Room Air Sepsis Recent Fever Within 48 Hours No Sepsis New/Unexplained Change in Mental Status N/A Sepsis Action Taken by Nursing No Action Required 06/07/20 16:44 06/07/20 16:45 06/07/20 17:00 Temperature Temperature Source Pulse Rate 87 82 Pulse Rate [Apical] 83 Pulse Rate from SpO2 Sensor 86 83 Respiratory Rate 22 17 21 Respiratory Effort / Characteristics Non-Labored Spontaneous Respiratory Depth Normal Respiratory Pattern Regular Blood Pressure 108/55 L Blood Pressure [Right Arm] 113/57 L Blood Pressure Mean 61 Blood Pressure Mean [Right Arm] 75 Pulse Oximetry 96 96 95 Oxygen Delivery Method Room Air Sepsis Recent Fever Within 48 Hours Sepsis New/Unexplained Change in Mental Status Sepsis Action Taken by Nursing 06/07/20 17:30 06/07/20 18:00 06/07/20 18:30 Temperature Temperature Source Pulse Rate 80 83 87 Pulse Rate [Apical] Pulse Rate from SpO2 Sensor 81 82 87 Respiratory Rate 21 22 22 Respiratory Effort / Characteristics Respiratory Depth Respiratory Pattern Blood Pressure 114/51 L 111/61 114/63 Blood Pressure [Right Arm] Blood Pressure Mean 72 75 80 Blood Pressure Mean [Right Arm] Pulse Oximetry 96 96 96 Oxygen Delivery Method Sepsis Recent Fever Within 48 Hours Sepsis New/Unexplained Change in Mental Status Sepsis Action Taken by Retirement Medications Current Medication List: was personally reviewed by me Laboratory Data Attestation: I reviewed the patient's lab results. Result diagrams: 06/07/20 16:37 06/07/20 16:37 Lab Results 06/07/20 06/07/20 06/07/20 Range/Units 16:37 16:37 16:37 WBC 7.87 (4.8-10.8) K/uL RBC 3.03 L (4.7-6.1) M/uL Hgb 8.2 L (14.0-18.0) g/dL Hct 26.0 L (42-52) % MCV 85.8 (80-100) fL MCH 27.1 (25-34) pg MCHC 31.5 L (32-36) g/dL RDW Std Deviation 54.2 H (36.4-46.3) fL RDW Coeff of Maryanne 17.5 H (11.5-14.5) % Plt Count 457 H (130-400) K/uL MPV 8.5 (7.4-10.4) fL Immature Gran % (Auto) 1.5 % Neut % (Auto) 68.1 % Lymph % (Auto) 21.0 % [place] % (Auto) 9.0 % Eos % (Auto) 0.1 % Baso % (Auto) 0.3 % Neut # (Auto) 5.36 (1.4-6.5) K/uL Lymph # (Auto) 1.65 (1.2-3.4) K/uL [place] # (Auto) 0.71 H (0.11-0.59) K/uL Eos # (Auto) 0.01 (0-0.5) K/uL Baso # (Auto) 0.02 (0-0.2) K/uL Immature Gran # (Auto) 0.12 H (0.00-0.02) K/uL PT 14.5 H (9.0-12.0) Seconds INR 1.4 H (0.9-1.1) APTT 63.0 H* (21.0-31.0) Seconds PTT Ratio 2.3 Sodium 133 L (136-145) mmol/L Potassium 3.9 (3.5-5.1) mmol/L Chloride 99 (98-107) mmol/L Carbon Dioxide 22 (21-32) mmol/L Anion Gap 12.0 H (3-11) BUN 12 (7-18) mg/dl Creatinine 1.19 (0.6-1.4) mg/dl Est Cr Clr Drug Dosing 34.7 ml/min Est GFR ( Amer) 66.0 Est GFR (Non-Af Amer) 56.9 BUN/Creatinine Ratio 10.3 (10-20) Glucose 95 (70-99) mg/dl Lactate (0.4-2.0) mmol/L Calcium 9.4 (8.5-10.1) mg/dl Magnesium 1.7 L (1.8-2.4) mg/dl Total Bilirubin 0.6 (0.2-1) mg/dl AST 42 H (15-37) U/L ALT 19 (12-78) U/L Alkaline Phosphatase 101 (45-117) U/L Troponin I < 0.015 (0-0.045) ng/ml Total Protein 9.1 H (6.4-8.2) gm/dl Albumin 1.3 L (3.4-5.0) gm/dl Globulin 7.8 H (2.5-4.0) gm/dl Albumin/Globulin Ratio 0.2 L (0.9-2) Procalcitonin (0-0.5) ng/ml COVID-19 Eval Order SARS-CoV-2 (PCR) (Negative) Influenza Type A (PCR) (Neg) Influenza Type B (PCR) (Neg) RSV (RT-PCR) (Neg) SARS-CoV-2, RNA, NAAT 06/07/20 06/07/20 06/07/20 Range/Units 16:37 16:37 18:32 WBC (4.8-10.8) K/uL RBC (4.7-6.1) M/uL Hgb (14.0-18.0) g/dL Hct (42-52) % MCV (80-100) fL MCH (25-34) pg MCHC (32-36) g/dL RDW Std Deviation (36.4-46.3) fL RDW Coeff of Maryanne (11.5-14.5) % Plt Count (130-400) K/uL MPV (7.4-10.4) fL Immature Gran % (Auto) % Neut % (Auto) % Lymph % (Auto) % [place] % (Auto) % Eos % (Auto) % Baso % (Auto) % Neut # (Auto) (1.4-6.5) K/uL Lymph # (Auto) (1.2-3.4) K/uL [place] # (Auto) (0.11-0.59) K/uL Eos # (Auto) (0-0.5) K/uL Baso # (Auto) (0-0.2) K/uL Immature Gran # (Auto) (0.00-0.02) K/uL PT (9.0-12.0) Seconds INR (0.9-1.1) APTT (21.0-31.0) Seconds PTT Ratio Sodium (136-145) mmol/L Potassium (3.5-5.1) mmol/L Chloride (98-107) mmol/L Carbon Dioxide (21-32) mmol/L Anion Gap (3-11) BUN (7-18) mg/dl Creatinine (0.6-1.4) mg/dl Est Cr Clr Drug Dosing ml/min Est GFR ( Amer) Est GFR (Non-Af Amer) BUN/Creatinine Ratio (10-20) Glucose (70-99) mg/dl Lactate 2.3 H* (0.4-2.0) mmol/L Calcium (8.5-10.1) mg/dl Magnesium (1.8-2.4) mg/dl Total Bilirubin (0.2-1) mg/dl AST (15-37) U/L ALT (12-78) U/L Alkaline Phosphatase (45-117) U/L Troponin I (0-0.045) ng/ml Total Protein (6.4-8.2) gm/dl Albumin (3.4-5.0) gm/dl Globulin (2.5-4.0) gm/dl Albumin/Globulin Ratio (0.9-2) Procalcitonin 0.50 (0-0.5) ng/ml COVID-19 Eval Order CovFluRsv at [facility] SARS-CoV-2 (PCR) (Negative) Influenza Type A (PCR) (Neg) Influenza Type B (PCR) (Neg) RSV (RT-PCR) (Neg) SARS-CoV-2, RNA, NAAT 06/07/20 06/07/20 06/07/20 Range/Units 18:32 18:32 18:33 WBC (4.8-10.8) K/uL RBC (4.7-6.1) M/uL Hgb (14.0-18.0) g/dL Hct (42-52) % MCV (80-100) fL MCH (25-34) pg MCHC (32-36) g/dL RDW Std Deviation (36.4-46.3) fL RDW Coeff of Maryanne (11.5-14.5) % Plt Count (130-400) K/uL MPV (7.4-10.4) fL Immature Gran % (Auto) % Neut % (Auto) % Lymph % (Auto) % [place] % (Auto) % Eos % (Auto) % Baso % (Auto) % Neut # (Auto) (1.4-6.5) K/uL Lymph # (Auto) (1.2-3.4) K/uL [place] # (Auto) (0.11-0.59) K/uL Eos # (Auto) (0-0.5) K/uL Baso # (Auto) (0-0.2) K/uL Immature Gran # (Auto) (0.00-0.02) K/uL PT (9.0-12.0) Seconds INR (0.9-1.1) APTT (21.0-31.0) Seconds PTT Ratio Sodium (136-145) mmol/L Potassium (3.5-5.1) mmol/L Chloride (98-107) mmol/L Carbon Dioxide (21-32) mmol/L Anion Gap (3-11) BUN (7-18) mg/dl Creatinine (0.6-1.4) mg/dl Est Cr Clr Drug Dosing ml/min Est GFR ( Amer) Est GFR (Non-Af Amer) BUN/Creatinine Ratio (10-20) Glucose (70-99) mg/dl Lactate 1.7 (0.4-2.0) mmol/L Calcium (8.5-10.1) mg/dl Magnesium (1.8-2.4) mg/dl Total Bilirubin (0.2-1) mg/dl AST (15-37) U/L ALT (12-78) U/L Alkaline Phosphatase (45-117) U/L Troponin I (0-0.045) ng/ml Total Protein (6.4-8.2) gm/dl Albumin (3.4-5.0) gm/dl Globulin (2.5-4.0) gm/dl Albumin/Globulin Ratio (0.9-2) Procalcitonin (0-0.5) ng/ml COVID-19 Eval Order SARS-CoV-2 (PCR) NEGATIVE (Negative) Influenza Type A (PCR) Negative (Neg) Influenza Type B (PCR) Negative (Neg) RSV (RT-PCR) Negative (Neg) SARS-CoV-2, RNA, NAAT Cancelled Administered Medications Apixaban (Apixaban 2.5 Mg Tab) 2.5 mg PO Q12H DEWEY Stop: 07/07/20 21:53 Last Admin: 06/07/20 22:25 Dose: 2.5 mg Documented by: [id number] Gabapentin (Gabapentin 300 Mg Cap) 300 mg PO BID DEWEY Stop: 07/07/20 21:53 Last Admin: 06/07/20 22:25 Dose: 300 mg Documented by: [id number] Guaifenesin (Guaifenesin 600 Mg Tabcr) 600 mg PO Q12 DEWEY Stop: 07/07/20 21:53 Last Admin: 06/07/20 22:25 Dose: 600 mg Documented by: [id number] Magnesium Sulfate/Dextrose (Magnesium Sulfate / D5w) 1 gm in 100 mls @ 50 mls/hr IV ONE ONE Stop: 06/07/20 23:59 Last Admin: 06/07/20 22:26 Dose: 50 mls/hr Documented by: [id number] Metoprolol Succinate (Metoprolol Succ 25mg Ext Rel Tab) 12.5 mg PO HS DEWEY Stop: 07/07/20 21:53 Last Admin: 06/07/20 22:29 Dose: 12.5 mg Documented by: [id number] Discontinued Medications Sodium Chloride (Nss 1000ml) 1,000 mls @ 999 mls/hr IV .Q1H1M DEWEY Stop: 06/07/20 17:15 Last Infusion: 06/07/20 17:44 Dose: 0 mls/hr Documented by: [id number] Admin: 06/07/20 16:47 Dose: 999 mls/hr Documented by: [id number] Sodium Chloride (Nss 1000ml) 1,000 mls @ 999 mls/hr IV .Q1H1M ONE Stop: 06/07/20 18:48 Last Infusion: 06/07/20 18:45 Dose: 0 mls/hr Documented by: [id number] Admin: 06/07/20 17:54 Dose: 999 mls/hr Documented by: [id number] Discharge Plan Visit Data Chief Complaint: Fever Stated Complaint: PNEUMONIA ED Provider: Heri Smith Discharge Problem: Weakness, Pneumonitis, Acute dehydration, Acidosis, lactic, Hypomagnesemia Patient Disposition: Admitted As Inpatient Discharge Instructions Interventions: ED Discharge Assessment Last Done: 06/07/20 20:37
[2020-06-07] MEDS ORDERED: SODIUM CHLORIDE 0.9% 1000ML 1,000 ML IV SCH (16:15)
[2020-06-07 16:49] LABS: Basophils # (auto) 0.02 K/uL (0-0.2); Basophils % (auto) 0.3 %; Eosinophils # (auto) 0.01 K/uL (0-0.5); Eosinophils % (auto) 0.1 %; Hemoglobin 8.2 g/dL (14.0-18.0); Immature Granulocytes # (auto) 0.12 K/uL (0.00-0.02); Immature Granulocytes % (auto) 1.5 %; Lymphocytes # (auto) 1.65 K/uL (1.2-3.4); Mean Corpuscular Hemoglobin 27.1 pg (25-34); Mean Corpuscular Hgb Conc 31.5 g/dL (32-36); Mean Corpuscular Volume 85.8 fL (80-100); Mean Platelet Volume 8.5 fL (7.4-10.4); Monocytes # (auto) 0.71 K/uL (0.11-0.59); Neutrophils # (auto) 5.36 K/uL (1.4-6.5); Neutrophils % (auto) 68.1 %; Platelet Count 457 K/uL (130-400); RDW Coefficient of Variation 17.5 % (11.5-14.5); RDW Standard Deviation 54.2 fL (36.4-46.3); Red Blood Count 3.03 M/uL (4.7-6.1); White Blood Count 7.87 K/uL (4.8-10.8)
[2020-06-07 17:05] LABS: Alanine Aminotransferase 19 U/L (12-78); Albumin Level 1.3 gm/dl (3.4-5.0); Aspartate Aminotransferase 42 U/L (15-37); BUN Creatinine Ratio 10.3 (10-20); Blood Urea Nitrogen 12 mg/dl (7-18); Calcium 9.4 mg/dl (8.5-10.1); Carbon Dioxide 22 mmol/L (21-32); Chloride 99 mmol/L (98-107); Creatinine Clr Calc Pharmacy 34.7 ml/min; Est GFR (Non-African American) 56.9; Glucose 95 mg/dl (70-99); Magnesium 1.7 mg/dl (1.8-2.4); Potassium 3.9 mmol/L (3.5-5.1); Sodium 133 mmol/L (136-145)
--- NOTE | 2020-06-07 17:09 | XRay Report ---
XR chest 1V portable CLINICAL HISTORY: SEPSIS COMPARISON STUDY: Chest radiograph May 31, 2020. FINDINGS: Dual-lead left subclavian pacemaker is noted. There is mild cardiomegaly. There is no pneum othorax. Small left and trace right pleural effusions are noted. Bibasilar opacities have increased. There is no evidence for pulmonary edema. IMPRESSION: 1. Increase in bibasilar opacities which favor an infectious process. 2. Small left and trace right pleural effusions. ACT 112: Negative or not required by law. Electronically signed by: Jeremiha Gary M.D. 06/07/2020 5:08 PM
[2020-06-07 17:10] LABS: Albumin Globulin Ratio 0.2 (0.9-2); Alkaline Phosphatase 101 U/L (45-117); Bilirubin,Total 0.6 mg/dl (0.2-1); Globulin 7.8 gm/dl (2.5-4.0); Total Protein 9.1 gm/dl (6.4-8.2); Troponin I < 0.015 ng/ml (0-0.045)
[2020-06-07 17:17] LABS: INR 1.4 (0.9-1.1); Partial Thromboplastin Ratio 2.3; Prothrombin Time 14.5 Seconds (9.0-12.0)
[2020-06-07] MEDS ORDERED: SODIUM CHLORIDE 0.9% 1000ML 1,000 ML IV ONE (17:48)
--- NOTE | 2020-06-07 19:10 | History & Physical Report ---
Date of Service June 07, 2020 Assessment & Plan (1) Weakness: -Admit to [facility] -Patient presenting from home with generalized weakness, poor appetite, fever -In the ED, CXR showing increase in bibasilar opacities however patient is afebrile, no leukocytosis, procalcitonin 0.5 -Patient with 2 admissions to [facility] recently. 05/09 through 05/13 for anemia. 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 Patient was then readmitted 05/29 through 05/31 for pneumonitis. Patient was discharged on Augmentin for which he has finished the course. -Monitor for fever, follow blood cultures, COVID-19 testing pending -?? Tumor fever -Likely deconditioning secondary to recent hospital admissions -PT/OT, case management evaluation for possible placement (2) Acidosis, lactic: -Lactic acid 2.3 -> 1.7 after IVF -Likely due to dehydration (3) Mass: -Outside CT ABD/pelvis results reviewed that showed a large destructive soft tissue mass lesion of the right ilium, differential diagnosis included metastatic disease, myeloma, lymphoma. -Patient has yet to follow-up with oncology for tissue sampling. (4) Hypomagnesemia: -MG +1.7 -Replace, follow electrolytes (5) Paroxysmal atrial fibrillation: (6) Pacemaker: (7) Sinus node dysfunction: -Rate controlled on metoprolol, will continue -Anticoagulated on Eliquis, continue (8) Anemia: -Recent EGD and colonoscopy as noted above -Hgb stable/at recent baseline (9) DVT prophylaxis: -On Eliquis History of Present Illness Chief Complaint: Weakness, fever Primary Care Provider: Rito Awad 79-year-old male with PMH paroxysmal atrial fibrillation anticoagulated on Eliquis, sinus node dysfunction s/p pacemaker, right iliac mass, and other problems listed below who presents the ED for evaluation of generalized weakness and fever. Patient with 2 admissions to [facility] recently. 05/09 through 05/13 for anemia. 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 Outside CT ABD/pelvis results reviewed that showed a large destructive soft tissue mass lesion of the right ilium, differential diagnosis included metastatic disease, myeloma, lymphoma. Patient has yet to follow-up with oncology for tissue sampling. Patient was then readmitted 05/29 through 05/31 for pneumonitis. Patient was discharged on Augmentin for which she has finished the course. Patient is a very poor historian, so history is obtained from patient's . She reports that the patient continues to be very weak and tired at times. Over the past 2 days, he has been running fevers of around 100 degrees. She reports an ongoing cough that has not worsened. Appetite has been poor. No other symptoms reported. In the ED, patient is afebrile, hemodynamically stable. Lactate 2.3. CXR shows increase in bibasilar opacities. Procalcitonin 0.5. Patient was given IVF. Allergies Allergy/AdvReac Type Severity Reaction Status Date / Time No Known Allergies Allergy Verified 06/07/20 18:29 Home Medications Medication Instructions Recorded Confirmed Type gabapentin 300 mg PO BID 06/25/18 06/07/20 History Eliquis 2.5 mg PO Q12H 05/09/20 06/07/20 History metoprolol succinate 25 mg PO QAM 05/09/20 06/07/20 History pantoprazole 40 mg PO QAM 05/09/20 06/07/20 History tramadol 50 mg PO DIRECTED PRN 05/09/20 06/07/20 History metoprolol succinate 12.5 mg PO HS 05/29/20 06/07/20 History guaifenesin [Mucinex] 600 mg PO Q12 10 Days #20 tab 05/31/20 06/07/20 Rx Past Med/Surg History Medical History (Updated 06/07/20 @ 19:14 by ALEXIS Rodriguez) Barretts esophagus CKD (chronic kidney disease), stage III Colon polyps GERD (gastroesophageal reflux disease) Pacemaker Paroxysmal atrial fibrillation Sinus node dysfunction Surgical History History of total right hip replacement Family History Other Family history non-contributory Social History Smoking Status: Never smoker Second Hand Exposure: No; Do You Dip or Chew Tobacco: No; Tobacco Cessation Education Requested by Patient: No Hx Alcohol Use: No Hx Substance Use: No Preferred Language: Cook Islander Communication Ability: Effective Hearing Ability: Normal Subassembly Supervisor Required: No Beliefs That Will Affect Care: None marital status: Current Living Situation: Spouse current occupational status: employed Other Information That Helps Us Care for You: No Feels Safe at Home: Yes Safety Concerns: Feels Safe At This Time Assistive Devices: Walker Review of Systems Review of Systems: ROS per HPI, all other systems reviewed and negative Physical Exam Constitutional: + thin; no acute distress Vitals as above Eyes: PERRL, conjunctivae normal, anicteric sclerae ENMT: external ear and nose normal, oropharynx normal Respiratory: normal respiratory effort; no respiratory distress Auscultation: + diminished lung sounds Cardiovascular: Rate/Rhythm: regular rate and regular rhythm Vessels: normal peripheral pulses Extremities: no edema Gastrointestinal (Abdomen): normal bowel sounds, soft, nontender, no hepatosplenomegaly Musculoskeletal: no cyanosis or clubbing, extremities motor strength 5/5 Skin: no rashes, warm and dry Neurologic: PERRL, EOMI, accommodation nl, no face palsy, no dysarthria Psychiatric: Orientation: alert, oriented to person and oriented to place; + not oriented to time Insight: + limited insight Results & Data Results & Data ([facility]) Vital Signs (Past 12 Hours) Vital Signs Temp Pulse Pulse Resp BP BP Pulse Ox 06/07/20 18:30 87 22 114/63 96 06/07/20 18:00 83 22 111/61 96 06/07/20 17:30 80 21 114/51 L 96 06/07/20 17:00 82 21 108/55 L 95 06/07/20 16:45 87 17 96 06/07/20 16:44 83 22 113/57 L 96 06/07/20 16:43 83 22 96 06/07/20 16:40 86 22 113/57 L 95 06/07/20 15:59 36 C L 95 H 20 109/51 L 95 Laboratory Results Short CBC 06/07/20 06/07/20 Range/Units 16:37 16:37 WBC 7.87 (4.8-10.8) K/uL Hgb 8.2 L (14.0-18.0) g/dL Hct 26.0 L (42-52) % Plt Count 457 H (130-400) K/uL Lactate 2.3 H* (0.4-2.0) mmol/L BMP 06/07/20 16:37 Sodium 133 L Potassium 3.9 Chloride 99 Carbon Dioxide 22 BUN 12 Creatinine 1.19 Glucose 95 Calcium 9.4 Cardiac Enzymes 06/07/20 Range/Units 16:37 Troponin I < 0.015 (0-0.045) ng/ml Liver Function 06/07/20 Range/Units 16:37 Total Bilirubin 0.6 (0.2-1) mg/dl AST 42 H (15-37) U/L ALT 19 (12-78) U/L Alkaline Phosphatase 101 (45-117) U/L Albumin 1.3 L (3.4-5.0) gm/dl Diagnostic Findings CXR IMPRESSION: 1. Increase in bibasilar opacities which favor an infectious process. 2. Small left and trace right pleural effusions. Code Status & VTE Plan Code Status As per my discussion with patient's , patient is DNI only. VTE Prophylaxis Plan VTE Prophylaxis will be ordered: No Supervising Physician Co-Signing Physician Notes Pt was seen and examined. Agreed with Christa ESPINOZA exam, assessment and plan. 79-year-old male with PMH paroxysmal atrial fibrillation anticoagulated on Eliquis, sinus node dysfunction s/p pacemaker presented to the ER for weakness and fever. She was recently discharge on 05/31 for pneumonitis. He completed the course of Augmentin. said that pt has been very weak in the last few days. said that pt has not been coughing much. Pt was febrile as per . He has been having a poor appetite. currently denies any chest pain, palpitation, dizziness and SOB. CXR on admission showed Increase in bibasilar opacities. COVID 19 and procalcitonin negative. Lactate mildly elevated 2.3 possible related to dehydration. Fever might be related due to underline malignancy. Previous CT showed a large destructive soft tissue mass lesion of the right ilium, differential diagnosis included metastatic disease, myeloma, lymphoma. Waiting for appointment with Oncology for tissue sampling. We will hold on abx for now since pt just finished a course of antibiotic and WBC normal and afebrile currently. PT/OT eval. Fall precaution. will need placement to rehab since this is his 3rd admission in the last 30 days. Continue monitor closely. MD Rosana
[2020-06-07 19:28] LABS: Influenza A virus by PCR Negative (Neg); Influenza B virus by PCR Negative (Neg); RSV by PCR Negative (Neg); SARS CoV2 RNA(COVID-19) InHosp NEGATIVE (Negative)
[2020-06-07 20:55] LABS: Appearance Urine Clear (Clear); Bacteria Urine Automated Negative (Negative); Bilirubin Urine Negative (Negative); Blood Urine Negative (Negative); Color Urine Yellow; Glucose Urine UA Negative (Negative); Ketones Urine Negative (Negative); Leukocyte Esterase Urine Negative (Negative); Nitrite Urine Negative (Negative); Protein Urine Trace (Negative); RBC Urine Automated 0-4 /hpf (0-4); Urobilinogen Urine Negative (Negative)
[2020-06-07] MEDS ORDERED: ACETAMINOPHEN 325 MG TAB PO PRN (21:54)
[2020-06-07] MEDS ORDERED: MAGNESIUM SULFATE / D5W 1 GM/100 ML BAG IV ONE (22:00)
[2020-06-07] MEDS: APIXABAN 2.5 MG TAB PO SCH (22:25)
[2020-06-07] MEDS: guaiFENesin 600 MG TABCR PO SCH (22:25)
[2020-06-07] MEDS: GABAPENTIN 300 MG CAP PO SCH (22:25)
[2020-06-07] MEDS: METOPROLOL SUCC 25MG EXT REL TAB PO SCH (22:29)
[2020-06-07] MEDS: traMADol HCL 50 MG TABLET PO PRN (23:47)
[2020-06-08] MEDS: GABAPENTIN 300 MG CAP PO SCH ×2 (08:04→20:20)
[2020-06-08] MEDS: PANTOprazole 40 MG TAB PO SCH (08:04)
[2020-06-08] MEDS: guaiFENesin 600 MG TABCR PO SCH ×2 (08:04→20:15)
[2020-06-08] MEDS: METOPROLOL SUCC 25MG EXT REL TAB PO SCH ×2 (08:05→20:18)
--- NOTE | 2020-06-08 09:07 | Electrocardiogram Report ---
Test Reason : Blood Pressure : / mmHG Vent. Rate : 085 BPM Atrial Rate : 085 BPM P-R Int : 182 ms QRS Dur : 126 ms QT Int : 402 ms P-R-T Axes : 074 -62 009 degrees QTc Int : 478 ms Sinus rhythm with Premature atrial complexes Right bundle branch block Left anterior fascicular block Bifascicular block Abnormal ECG When compared with ECG of 29-MAY-2020 15:50, No significant change was found Confirmed by Isaac Alatorre ([id number]) on 06/08/2020 9:06:35 AM Referred By: Rito Awad Confirmed By:Isaac Alatorre
[2020-06-08] MEDS: APIXABAN 2.5 MG TAB PO SCH ×2 (10:02→20:16)
--- NOTE | 2020-06-08 16:57 | Hospitalist Progress Note ---
Date of Service June 08, 2020 Assessment & Plan (1) Weakness: Fever Presenting on admission with generalized weakness, poor appetite and fever Recently discharge on 05/31 for pneumonitis and just completed the course of Augmentin CXR showing increase in bibasilar opacities however patient is afebrile, no leukocytosis, procalcitonin 0.5 COVID 19 and procalcitonin negative. Lactate mildly elevated 2.3 No focal neuro deficit on exam Continue physical and occupational therapy Fall precaution Will need placement to rehab (2) Acidosis, lactic: Likely due to dehydration from poor intake Lactic acid 2.3 on admission then repeat was 1.7 after IVF COVID 19 and procalcitonin negative. Will hold on for abx since pt just completed a course of Augmentin on 06/06 Blood cx and urine cx no growth (3) Mass: Outside CT ABD/pelvis results reviewed that showed a large destructive soft tissue mass lesion of the right ilium, differential diagnosis included metastatic disease, myeloma, lymphoma. Waiting for outpatient follow-up with oncology for tissue sampling. (4) Hypomagnesemia: Will monitor Mg (5) Paroxysmal atrial fibrillation: (6) Pacemaker: (7) Sinus node dysfunction: Rate controlled on metoprolol, will continue Continue Eliquis (8) Anemia: Recent EGD and colonoscopy as noted above Hgb stable/ (9) DVT prophylaxis: On Eliquis Admission and Anticipated Discharge Date Admission Date: June 07, 2020 Subjective Pt was seen and examined for follow up of weakness and fever Lying in bed with no distress Denies any chest pain, palpitation, dizziness and SOB Physical Exam Physical Exam: Constitutional: + thin Vitals as above Eyes: PERRL, EOMI, conjunctivae normal, anicteric sclerae ENMT: external ear and nose normal, oropharynx normal, +decrease hearing function Respiratory: normal respiratory effort, lungs clear to auscultation Cardiovascular: regular rate and regular rhythm Vessels: normal peripheral pulses Extremities: no edema Gastrointestinal: normal bowel sounds, soft, nontender Musculoskeletal: no cyanosis or clubbing, extremities motor strength 5/5 Skin: no rashes, warm and dry Neurologic: PERRL, EOMI, no face palsy, no dysarthria Psychiatric: alert and wake, euthymic affect Insight: + limited insight Forgetful Results & Data Results & Data ([facility]) Vital Signs (Past 12 Hours) Vital Signs Temp Pulse Pulse Resp BP Pulse Ox 06/08/20 15:02 36.4 C L 64 18 111/57 L 98 06/08/20 07:38 36.8 C 73 18 101/56 L 92
[2020-06-08] MEDS: traMADol HCL 50 MG TABLET PO PRN (20:14)
[2020-06-09 07:44] LABS: Hematocrit (blood only) 22.1 % (42-52); Hemoglobin 6.9 g/dL (14.0-18.0); Mean Corpuscular Hemoglobin 26.8 pg (25-34); Mean Corpuscular Hgb Conc 31.2 g/dL (32-36); Mean Platelet Volume 8.5 fL (7.4-10.4); Platelet Count 443 K/uL (130-400); RDW Coefficient of Variation 17.8 % (11.5-14.5); RDW Standard Deviation 55.9 fL (36.4-46.3); Red Blood Count 2.57 M/uL (4.7-6.1); White Blood Count 7.65 K/uL (4.8-10.8)
[2020-06-09 08:12] LABS: BUN Creatinine Ratio 8.4 (10-20); Calcium 9.3 mg/dl (8.5-10.1); Creatinine Clr Calc Pharmacy 41.4 ml/min; Est GFR (African American) 70.3; Est GFR (Non-African American) 60.6; Magnesium 1.9 mg/dl (1.8-2.4); Potassium 3.8 mmol/L (3.5-5.1)
[2020-06-09] MEDS: GABAPENTIN 300 MG CAP PO SCH ×2 (08:53→20:45)
[2020-06-09] MEDS: METOPROLOL SUCC 25MG EXT REL TAB PO SCH ×2 (08:53→20:46)
[2020-06-09] MEDS: PANTOprazole 40 MG TAB PO SCH (08:53)
[2020-06-09] MEDS: APIXABAN 2.5 MG TAB PO SCH ×2 (08:53→20:45)
[2020-06-09] MEDS: guaiFENesin 600 MG TABCR PO SCH ×2 (08:54→20:44)
[2020-06-09] MEDS ORDERED: SODIUM CHLORIDE 0.9% 250 ML IV PRN (11:03)
--- NOTE | 2020-06-09 17:00 | Hospitalist Progress Note ---
Date of Service June 09, 2020 Assessment & Plan (1) Weakness: Fever Presenting on admission with generalized weakness, poor appetite and fever Recently discharge on 05/31 for pneumonitis and just completed the course of Augmentin CXR showing increase in bibasilar opacities however patient is afebrile, no leukocytosis, procalcitonin 0.5 COVID 19 and procalcitonin negative. Lactate mildly elevated 2.3 No focal neuro deficit on exam Continue physical and occupational therapy During admission wanted him to go to rehab, but she feels guilty now and would like her to come home Fall precaution (2) Acidosis, lactic: Likely due to dehydration from poor intake Lactic acid 2.3 on admission then repeat was 1.7 after IVF COVID 19 and procalcitonin negative. 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 Waiting for outpatient follow-up with oncology for tissue sampling. (4) Hypomagnesemia: Mg 1.9 today Stable (5) Paroxysmal atrial fibrillation: (6) Pacemaker: (7) Sinus node dysfunction: Rate controlled on metoprolol, will continue Continue Eliquis (8) Anemia: Recent EGD and colonoscopy as noted above Hgb 6.9 today Type and cross and will transfuse 1 unit PRBC today If hgb continues to drop, will recommend to hold Eliquis Continue monitor CBC Severe protein-calorie malnutrition BMI 19.7 Increase protein intake (9) DVT prophylaxis: On Eliquis Admission and Anticipated Discharge Date Admission Date: June 07, 2020 Subjective Pt was seen and examined for follow up of weakness and fever Lying in bed with no distress Pt said that he would like to go home instead to rehab when he gets better Spoke to Carin this morning and provided with updates and answered all her questions and patient agreed for blood transfusion Telephone consent obtained from over the phone (Pt also had a consent from last admission that I believe is less than 30days) said that she would rather like him to come home now because pt said to her that "she does not care for him if she lets him go to rehab". she feels guilty now Denies any chest pain, palpitation, dizziness and SOB Physical Exam Physical Exam: Constitutional: + thin Vitals as above Eyes: PERRL, EOMI, conjunctivae normal, anicteric sclerae ENMT: external ear and nose normal, oropharynx normal, +decrease hearing function Respiratory: normal respiratory effort, lungs clear to auscultation Cardiovascular: regular rate and regular rhythm Vessels: normal peripheral pulses Extremities: no edema Gastrointestinal: normal bowel sounds, soft, nontender Musculoskeletal: no cyanosis or clubbing, extremities motor strength 5/5 Skin: no rashes, warm and dry Neurologic: PERRL, EOMI, no face palsy, no dysarthria Psychiatric: alert and wake, euthymic affect Insight: + limited insight Forgetful Results & Data Results & Data ([facility]) Vital Signs (Past 12 Hours) Vital Signs Temp Pulse Pulse Resp BP BP Pulse Ox 06/09/20 15:20 37.5 C 78 18 109/56 L 94 06/09/20 14:20 37.3 C 80 18 109/52 L 92 06/09/20 13:50 37.1 C 80 18 100/64 93 06/09/20 13:35 37.5 C 77 18 110/45 L 93 06/09/20 13:34 36.8 C 82 18 106/53 L 93 06/09/20 13:15 36.2 C L 18 120/64 92 06/09/20 07:29 36.7 C 73 18 106/54 L 93
[2020-06-10 06:08] LABS: Hematocrit (blood only) 24.2 % (42-52); Hemoglobin 7.6 g/dL (14.0-18.0); Mean Corpuscular Hgb Conc 31.4 g/dL (32-36); Mean Corpuscular Volume 86.1 fL (80-100); Mean Platelet Volume 8.1 fL (7.4-10.4); Nucleated RBC # (auto) 0.04 K/uL (0-0); Nucleated RBC % (auto) 0.6 %; Platelet Count 385 K/uL (130-400); RDW Coefficient of Variation 17.2 % (11.5-14.5); RDW Standard Deviation 53.5 fL (36.4-46.3); Red Blood Count 2.81 M/uL (4.7-6.1); White Blood Count 7.27 K/uL (4.8-10.8)
[2020-06-10] MEDS: APIXABAN 2.5 MG TAB PO SCH (08:14)
[2020-06-10] MEDS: guaiFENesin 600 MG TABCR PO SCH (08:14)
[2020-06-10] MEDS: GABAPENTIN 300 MG CAP PO SCH (08:14)
[2020-06-10] MEDS: METOPROLOL SUCC 25MG EXT REL TAB PO SCH (08:14)
[2020-06-10] MEDS: PANTOprazole 40 MG TAB PO SCH (08:14)
[2020-06-10 14:04] LABS: Hematocrit (blood only) 25.2 % (42-52); Hemoglobin 7.8 g/dL (14.0-18.0)
--- NOTE | 2020-06-10 15:09 | Hospitalist Progress Note ---
Date of Service June 10, 2020 Assessment & Plan (1) Weakness: Fever Presenting on admission with generalized weakness, poor appetite and fever Recently discharge on 05/31 for pneumonitis and just completed the course of Augmentin CXR showing increase in bibasilar opacities however patient is afebrile, no leukocytosis, procalcitonin 0.5 COVID 19 and procalcitonin negative. Lactate mildly elevated 2.3 No focal neuro deficit on exam Continue physical and occupational therapy Pt refused to go to rehab During admission wanted him to go to rehab, but she feels guilty now and would like her to come home Fall precaution (2) Acidosis, lactic: Likely due to dehydration from poor intake Lactic acid 2.3 on admission then repeat was 1.7 after IVF COVID 19 and procalcitonin negative. 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 Waiting for outpatient follow-up with oncology for tissue sampling. (4) Hypomagnesemia: Mg 1.9 today Stable (5) Paroxysmal atrial fibrillation: (6) Pacemaker: (7) Sinus node dysfunction: Rate controlled on metoprolol, will continue Continue Eliquis (8) Anemia: Recent EGD and colonoscopy as noted above Hgb dropped to 6.9 S/P 1 unit PRBC was transfused on 06/09 If hgb continues to drop, will recommend to hold Eliquis Repeat hgb this afternoon improves from 7.6 to 7.8 Check CBC in 1 week Severe protein-calorie malnutrition BMI 19.7 Increase protein intake (9) DVT prophylaxis: On Eliquis Disposition Discharge home today since pt refused to go to rehab Fall precaution Admission and Anticipated Discharge Date Admission Date: June 07, 2020 Subjective Presenting on admission with generalized weakness, poor appetite and fever Sitting in chair with no distress watching TV Pt said that he feels OK. He refuses to go to rehab would like him to come home today because pt does not want to go to rehab Denies any chest pain, palpitation, dizziness and fever Review of Systems Review of Systems: All systems reviewed & are unremarkable except as noted in Subjective Physical Exam Physical Exam: Constitutional: + thin Vitals as above Eyes: PERRL, EOMI, conjunctivae normal, anicteric sclerae ENMT: external ear and nose normal, oropharynx normal, +decrease hearing function Respiratory: normal respiratory effort, lungs clear to auscultation Cardiovascular: regular rate and regular rhythm Vessels: normal peripheral pulses Extremities: no edema Gastrointestinal: normal bowel sounds, soft, nontender Musculoskeletal: no cyanosis or clubbing, extremities motor strength 5/5 Skin: no rashes, warm and dry Neurologic: PERRL, EOMI, no face palsy, no dysarthria Psychiatric: alert and wake, euthymic affect Insight: + limited insight Forgetful Results & Data Results & Data ([facility]) Vital Signs (Past 12 Hours) Vital Signs Temp Pulse Resp BP Pulse Ox 06/10/20 07:43 36.8 C 85 18 120/62 97
--- NOTE | 2020-06-11 11:13 | Discharge Summary ---
Date of Service June 10, 2020 Admission HPI Per Admitting Provider 79-year-old male with PMH paroxysmal atrial fibrillation anticoagulated on Eliquis, sinus node dysfunction s/p pacemaker, right iliac mass, and other problems listed below who presents the ED for evaluation of generalized weakness and fever. Patient with 2 admissions to [facility] recently. 05/09 through 05/13 for anemia. 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 Outside CT ABD/pelvis results reviewed that showed a large destructive soft tissue mass lesion of the right ilium, differential diagnosis included metastatic disease, myeloma, lymphoma. Patient has yet to follow-up with oncology for tissue sampling. Patient was then readmitted 05/29 through 05/31 for pneumonitis. Patient was discharged on Augmentin for which she has finished the course. Patient is a very poor historian, so history is obtained from patient's . She reports that the patient continues to be very weak and tired at times. Over the past 2 days, he has been running fevers of around 100 degrees. She reports an ongoing cough that has not worsened. Appetite has been poor. No other symptoms reported. In the ED, patient is afebrile, hemodynamically stable. Lactate 2.3. CXR shows increase in bibasilar opacities. Procalcitonin 0.5. Patient was given IVF. Admission Exam Per Admitting Provider Constitutional: + thin; no acute distress Vitals as above Eyes: PERRL, conjunctivae normal, anicteric sclerae ENMT: external ear and nose normal, oropharynx normal Respiratory: normal respiratory effort; no respiratory distress Auscultation: + diminished lung sounds Cardiovascular: regular rate and regular rhythm Vessels: normal peripheral pulses Extremities: no edema Gastrointestinal:normal bowel sounds, soft, nontender, no hepatosplenomegaly Musculoskeletal: no cyanosis or clubbing, extremities motor strength 5/5 Skin: no rashes, warm and dry Neurologic: PERRL, EOMI, accommodation nl, no face palsy, no dysarthria Psychiatric: Orientation: alert, oriented to person and oriented to place; + not oriented to time Insight: + limited insight Principal Diagnosis Weakness Mass in abdomen CT Hypomagnesemia Paroxysmal atrial fibrillation Pacemaker Sinus node dysfunction Anemia Severe protein-calorie malnutritio Discharge Exam Constitutional: + thin Vitals as above Eyes: PERRL, EOMI, conjunctivae normal, anicteric sclerae ENMT: external ear and nose normal, oropharynx normal, +decrease hearing function Respiratory: normal respiratory effort, lungs clear to auscultation Cardiovascular: regular rate and regular rhythm Vessels: normal peripheral pulses Extremities: no edema Gastrointestinal: normal bowel sounds, soft, nontender Musculoskeletal: no cyanosis or clubbing, extremities motor strength 5/5 Skin: no rashes, warm and dry Neurologic: PERRL, EOMI, no face palsy, no dysarthria Psychiatric: alert and wake, euthymic affect Insight: + limited insight Forgetful Discharge Data Allergies Allergy/AdvReac Type Severity Reaction Status Date / Time No Known Allergies Allergy Verified 06/07/20 18:29 Consultations 06/07/20 18:20 ED Decision to Admit Stat 06/07/20 21:54 Consult Case Management - Discharge Planning Routine Ordered Studies XR chest 1V portable CLINICAL HISTORY: SEPSIS COMPARISON STUDY: Chest radiograph May 31, 2020. FINDINGS: Dual-lead left subclavian pacemaker is noted. There is mild cardiomegaly. There is no pneumothorax. Small left and trace right pleural effusions are noted. Bibasilar opacities have increased. There is no evidence for pulmonary edema. IMPRESSION: 1. Increase in bibasilar opacities which favor an infectious process. 2. Small left and trace right pleural effusions. ACT 112: Negative or not required by law. Electronically signed by: Jeremiah Gray M.D. 06/07/2020 5:08 PM Dictated: 06/07/201705Transcribed: 06/07/201705 Hospital Course (1) Weakness: Fever Presenting on admission with generalized weakness, poor appetite and fever Recently discharge on 05/31 for pneumonitis and just completed the course of Augmentin CXR showing increase in bibasilar opacities however patient is afebrile, no leukocytosis, procalcitonin 0.5 COVID 19 and procalcitonin negative. Lactate mildly elevated 2.3 No focal neuro deficit on exam Continue physical and occupational therapy Pt refused to go to rehab During admission wanted him to go to rehab, but she feels guilty now and would like her to come home Fall precaution (2) Acidosis, lactic: Likely due to dehydration from poor intake Lactic acid 2.3 on admission then repeat was 1.7 after IVF COVID 19 and procalcitonin negative. 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 Waiting for outpatient follow-up with oncology for tissue sampling. (4) Hypomagnesemia: Mg 1.9 today Stable (5) Paroxysmal atrial fibrillation: (6) Pacemaker: (7) Sinus node dysfunction: Rate controlled on metoprolol, will continue Continue Eliquis (8) Anemia: Recent EGD and colonoscopy as noted above Hgb dropped to 6.9 S/P 1 unit PRBC was transfused on 06/09 If hgb continues to drop, will recommend to hold Eliquis Repeat hgb this afternoon improves from 7.6 to 7.8 Check CBC in 1 week Severe protein-calorie malnutrition BMI 19.7 Increase protein intake (9) DVT prophylaxis: On Eliquis Disposition Discharge home today since pt refused to go to rehab Fall precaution Total Time Total Time Spent Total Time Spent (In Minutes): 35 minutes Total Time Includes: Examination of the Patient, Discharge Planning, Medication Reconciliation, Communication With Other Providers and Other Discharge Plan Discharge Items Patient Disposition: Home - Home Health Services Reason For Visit: WEAKNESS Discharge Diagnosis: Weakness Mass in abdomen CT Hypomagnesemia Paroxysmal atrial fibrillation Pacemaker Sinus node dysfunction Anemia Severe protein-calorie malnutrition Activity: Resume your previous activity Non-emergency contact: Primary Care Provider Call non-emergency contact if: you have any medication questions Follow-up/Referrals: Rito Awad [Primary Care Provider] - 06/19/20 1:45 pm Diet: Heart Healthy Addtl Attending Provider Instructions: Follow up with your primary care provider Rito Awad within 1 week ( Please call to schedule for the follow up appointment) Continue physical and occupational therapy since refusing to go to rehab Continue to use a walker with ambulation Check CBC in 1 week to monitor your hemoglobin (Your provider will order it) Fall precaution Pending Studies at Discharge: No Stand-Alone Forms: [employer], Smoking Cessation Medications and DC Order Prescriptions: Continued tramadol 50 mg tablet 50 mg PO DIRECTED PRN (Reason: Pain) RF: 0 metoprolol succinate 25 mg tablet extended release 24 hr 25 mg PO QAM RF: 0 Eliquis 5 mg tablet 2.5 mg PO Q12H RF: 0 pantoprazole 40 mg tablet,delayed release (DR/EC) 40 mg PO QAM RF: 0 metoprolol succinate 25 mg tablet extended release 24 hr 12.5 mg PO HS RF: 0 gabapentin 300 mg capsule 300 mg PO BID RF: 0 Discharge Orders: Discharge Order (Routine); Ordered 06/10/20 Ordered By: Yanet Wayne Admission Data Admit Date/Time: 06/07/20 18:44 Attending Provider: Yanet Wayne Admit Provider: Ankur Fang Primary Care Provider: Rito Awad Other Providers: Miguelina Edwards ; Ankur Fang ; [facility] Other Interventions: Discharge Summary Assessment (RN) Last Done: 06/10/20 15:40
== END 2020-06-10 17:04 | disposition home health service (06) | DRG 542 ==
LOC: ED 15:57 → 3W 18:44 → SUATTDRO 18:44 → 3W 20:37
DX: I48.0 Paroxysmal atrial fibrillation; N18.30 Chronic kidney disease, stage 3 unspecified; Z68.1 Body mass index [BMI] 19.9 or less, adult; E87.2 Acidosis; K21.9 Gastro-esophageal reflux disease without esophagitis; Z79.01 Long term (current) use of anticoagulants; Z95.0 Presence of cardiac pacemaker; Z79.899 Other long term (current) drug therapy; D64.9 Anemia, unspecified; E83.42 Hypomagnesemia; R53.1 Weakness; C49.5 Malignant neoplasm of connective and soft tissue of pelvis; E43 Unspecified severe protein-calorie malnutrition

== ENCOUNTER 2020-07-05 15:03 | Inpatient (IN) ==
--- NOTE | 2020-07-05 15:53 | Emergency Department Note ---
Impression & Plan Acute pain of right hip, Cancer of pelvic bone, Anemia ED Provider Note INFORMANT: Patient ED PROVIDER(S): Delroy William MD CHIEF COMPLAINT: Right hip pain PLAN: Disposition: Admitted Condition: Good Outpatient prescription management: none Referral: None MEDICAL DECISION MAKING: The patient presented with hip pain. He was found to have destructive lesion in the pelvis. He was also found to be severely anemic. I did consent him with his daughter for blood transfusion. This was initiated. He was treated with IV narcotics which helped. The patient will need further management in the hospital. Consultation was made with internal medicine. He was evaluated in the ER and admitted for further management. Triage Nursing notes reviewed and agree them. Additional history obtained from patient's daughter Prior medical records reviewed regarding last admission and treatment. Vital Signs: reviewed and remarkable for borderline low blood pressure. EMR review reveals similar measurements. Differential diagnosis: Infection, dehydration, metabolic abnormality, hypo/hyperglycemia, electrolyte disturbance, anemia, hypoxia, cardiac sources, intracerebral event, toxicologic, neurologic, as well as other pathologies. Diagnostics interpreted by me: ECG: Twelve-lead ECG reveals sinus rhythm at 87. Occasional pacer spikes noted. Right bundle branch block and left anterior fascicular block noted. Anterior T wave inversions. Cardiac Monitoring: Cardiac monitoring ordered by me: The patient was placed on continuous cardiac monitoring and observed. It revealed a demand paced rhythm at 96 beats per minute without ectopy or evidence of dysrhythmia. Imaging studies: CT scan of the pelvis reveals destructive lesion concerning for possible metastatic disease. Pathology noted within the abdomen as well. I refer you to the EMR for further details. Consultation(s): [facility] HPI: The patient is a 79 year old male who presents to the Emergency Room with complaints of right hip pain. This started months ago and is worsening. The patient also notes the following associated symptoms, a mass in the right hip area. The patient has been using tramadol and one norco for relieving factors. Current pain is rated as 7/10. Pt denies LOC, headache, fevers, chills, diaphoresis, visual changes, neck pain, chest pain, breathing difficulties, nausea, vomiting, abdominal pain, back pain, melena, hematochezia, urinary symptoms, numbness, weakness, lymphadenopathy, rash, or other complaints. ROS: See above HPI for pertinent positives & negatives. A total of 10 systems reviewed and were otherwise negative. PAST MEDICAL HISTORY:See Below , pna PAST SURGICAL HISTORY:See Below,THR FAMILY HISTORY:See Below SOCIAL HISTORY:See Below, lives with family HOME MEDICATIONS:See Below ALLERGIES:See Below VITALS:See Below PHYSICAL EXAMINATION: GENERAL: Awake, alert, uncomfortable-appearing, in no distress HENT: Normocephalic, atraumatic. Oropharynx unremarkable. EYES: Normal conjunctiva. Sclera non-icteric. NECK: Inspection normal. Non-tender. Supple. No nuchal rigidity. FROM. No masses. RESPIRATORY: Clear to auscultation. No wheezes. No rales. Normal respiratory effort. CARDIAC: Normal rate. Normal rhythm. No murmurs. No rubs. Extremities warm and well perfused. Pulses equal. No JVD. GI: Soft, non-distended. No tenderness to palpation. No rebound or guarding. No masses. RECTAL: Deferred. MUSCULOSKELETAL: Atraumatic. Chest examination reveals no tenderness. The back is symmetrical on inspection without obvious abnormality. There is no CVA tende rness to palpation. No joint edema. LOWER EXTREMITIES: Calves are equal size bilaterally and non-tender. No edema. No discoloration. NEURO: Normal sensorium. No sensory or motor deficits noted. SKIN: No rash or jaundice noted. ED COURSE: Critical Care: I have personally spent greater than 35 minutes of critical care time in the direct management of this patient. This includes bedside care, interpretation of diagnostic studies, and testing, discussion with consultants, patient, and family members, and other required patient management activities. These minutes are in excess of all separately billable procedures. Delroy William MD Past Med/Surg History Medical History (Updated 07/05/20 @ 19:49 by Delroy William MD) Barretts esophagus CKD (chronic kidney disease), stage III Colon polyps GERD (gastroesophageal reflux disease) Hypomagnesemia Surgical History History of total right hip replacement Family History Other Family history non-contributory Social History Smoking Status: Never smoker Second Hand Exposure: No; Hx Alcohol Use: No Hx Substance Use: No Preferred Language: Kazakh Communication Ability: Effective Hearing Ability: Normal Tip Cementer Required: No Beliefs That Will Affect Care: None marital status: Current Living Situation: Spouse current occupational status: employed Feels Safe at Home: Yes Assistive Devices: Walker Allergies Allergies Allergy/AdvReac Type Severity Reaction Status Date / Time No Known Allergies Allergy Verified 07/05/20 16:26 Home Meds Home Medications Medication Instructions Recorded Confirmed gabapentin 300 mg PO BID 06/25/18 07/05/20 Eliquis 2.5 mg PO Q12H 05/09/20 07/05/20 metoprolol succinate 25 mg PO QAM 05/09/20 07/05/20 pantoprazole 40 mg PO QAM 05/09/20 07/05/20 tramadol 50 mg PO DIRECTED PRN 05/09/20 07/05/20 metoprolol succinate 12.5 mg PO HS 05/29/20 07/05/20 Results & Data (ED) Vital Signs Vital Signs - 24 hr 07/05/20 15:07 07/05/20 15:48 07/05/20 15:50 Temperature 36.3 C L Temperature Source Temporal Artery Scan Pulse Rate 82 87 86 Pulse Rate [Apical] Pulse Rate from SpO2 Sensor Pulse Rhythm Pulse Strength Respiratory Rate 20 14 18 Respiratory Effort / Characteristics Non-Labored Respiratory Depth Normal Respiratory Pattern Blood Pressure 110/67 96/55 L Blood Pressure [Left Arm] Blood Pressure Mean 81 68 Blood Pressure Mean [Left Arm] Blood Pressure Position Pulse Oximetry 96 96 97 Oxygen Delivery Method Room Air Sepsis Recent Fever Within 48 Hours No Sepsis New/Unexplained Change in Mental Status N/A Sepsis Action Taken by Nursing No Action Required 07/05/20 15:53 07/05/20 16:00 07/05/20 16:05 Temperature Temperature Source Pulse Rate 87 85 87 Pulse Rate [Apical] 85 Pulse Rate from SpO2 Sensor 85 Pulse Rhythm Pulse Strength Respiratory Rate 20 20 20 Respiratory Effort / Characteristics Non-Labored Spontaneous Respiratory Depth Normal Respiratory Pattern Regular Blood Pressure 100/64 Blood Pressure [Left Arm] 100/64 Blood Pressure Mean 76 Blood Pressure Mean [Left Arm] 76 Blood Pressure Position Pulse Oximetry 94 97 97 Oxygen Delivery Method Room Air Room Air Sepsis Recent Fever Within 48 Hours Sepsis New/Unexplained Change in Mental Status Sepsis Action Taken by Nursing 07/05/20 16:06 07/05/20 16:32 07/05/20 16:48 Temperature Temperature Source Pulse Rate 86 87 91 H Pulse Rate [Apical] Pulse Rate from SpO2 Sensor 81 Pulse Rhythm Pulse Strength Respiratory Rate 20 22 22 Respiratory Effort / Characteristics Respiratory Depth Respiratory Pattern Blood Pressure 103/53 L Blood Pressure [Left Arm] Blood Pressure Mean 69 Blood Pressure Mean [Left Arm] Blood Pressure Position Pulse Oximetry 97 97 98 Oxygen Delivery Method Sepsis Recent Fever Within 48 Hours Sepsis New/Unexplained Change in Mental Status Sepsis Action Taken by Nursing 07/05/20 17:00 07/05/20 17:01 07/05/20 17:30 Temperature Temperature Source Pulse Rate 91 H 89 83 Pulse Rate [Apical] 84 Pulse Rate from SpO2 Sensor 99 H 89 86 Pulse Rhythm Pulse Strength Respiratory Rate 20 20 18 Respiratory Effort / Characteristics Respiratory Depth Respiratory Pattern Blood Pressure 99/56 L 93/47 L Blood Pressure [Left Arm] 97/58 L Blood Pressure Mean 70 62 Blood Pressure Mean [Left Arm] 71 Blood Pressure Position Pulse Oximetry 97 98 97 Oxygen Delivery Method Room Air Sepsis Recent Fever Within 48 Hours Sepsis New/Unexplained Change in Mental Status Sepsis Action Taken by Nursing 07/05/20 17:47 07/05/20 17:49 07/05/20 17:51 Temperature 37 C Temperature Source Oral Pulse Rate 89 84 83 Pulse Rate [Apical] Pulse Rate from SpO2 Sensor 93 H 89 Pulse Rhythm Pulse Strength Respiratory Rate 20 18 20 Respiratory Effort / Characteristics Respiratory Depth Respiratory Pattern Blood Pressure 99/50 L 96/56 L 96/56 L Blood Pressure [Left Arm] Blood Pressure Mean 66 69 69 Blood Pressure Mean [Left Arm] Blood Pressure Position Pulse Oximetry 97 97 97 Oxygen Delivery Method Sepsis Recent Fever Within 48 Hours Sepsis New/Unexplained Change in Mental Status Sepsis Action Taken by Nursing 07/05/20 18:00 07/05/20 18:01 07/05/20 18:08 Temperature 36.3 C L Temperature Source Oral Pulse Rate 88 93 H 95 H Pulse Rate [Apical] Pulse Rate from SpO2 Sensor 91 H 95 H 96 H Pulse Rhythm Pulse Strength Respiratory Rate 24 18 18 Respiratory Effort / Characteristics Respiratory Depth Respiratory Pattern Blood Pressure 98/69 L 106/64 Blood Pressure [Left Arm] Blood Pressure Mean 78 78 Blood Pressure Mean [Left Arm] Blood Pressure Position Pulse Oximetry 97 97 97 Oxygen Delivery Method Sepsis Recent Fever Within 48 Hours Sepsis New/Unexplained Change in Mental Status Sepsis Action Taken by Nursing 07/05/20 18:15 07/05/20 18:23 07/05/20 18:24 Temperature 36.3 C L Temperature Source Oral Pulse Rate 87 86 96 H Pulse Rate [Apical] Pulse Rate from SpO2 Sensor 91 H 100 H Pulse Rhythm Pulse Strength Respiratory Rate 14 20 21 Respiratory Effort / Characteristics Respiratory Depth Respiratory Pattern Blood Pressure 107/73 112/77 112/77 Blood Pressure [Left Arm] Blood Pressure Mean 84 88 88 Blood Pressure Mean [Left Arm] Blood Pressure Position Pulse Oximetry 97 97 98 Oxygen Delivery Method Sepsis Recent Fever Within 48 Hours Sepsis New/Unexplained Change in Mental Status Sepsis Action Taken by Nursing 07/05/20 18:30 07/05/20 18:45 07/05/20 18:53 Temperature 36.4 C L Temperature Source Oral Pulse Rate 88 90 96 H Pulse Rate [Apical] Pulse Rate from SpO2 Sensor 97 H 96 H Pulse Rhythm Pulse Strength Respiratory Rate 23 19 20 Respiratory Effort / Characteristics Respiratory Depth Respiratory Pattern Blood Pressure 107/53 L 114/72 114/72 Blood Pressure [Left Arm] Blood Pressure Mean 71 86 86 Blood Pressure Mean [Left Arm] Blood Pressure Position Pulse Oximetry 97 98 98 Oxygen Delivery Method Sepsis Recent Fever Within 48 Hours Sepsis New/Unexplained Change in Mental Status Sepsis Action Taken by Nursing 07/05/20 19:00 07/05/20 19:10 07/05/20 19:25 Temperature 36.5 C 36.5 C Temperature Source Oral Oral Pulse Rate 91 H 92 H 97 H Pulse Rate [Apical] Pulse Rate from SpO2 Sensor 104 H Pulse Rhythm Irregular Pulse Strength Normal Respiratory Rate 22 20 20 Respiratory Effort / Characteristics Respiratory Depth Respiratory Pattern Blood Pressure 107/62 107/62 114/61 Blood Pressure [Left Arm] Blood Pressure Mean 77 77 78 Blood Pressure Mean [Left Arm] Blood Pressure Position Lying Pulse Oximetry 95 98 97 Oxygen Delivery Method Sepsis Recent Fever Within 48 Hours Sepsis New/Unexplained Change in Mental Status Sepsis Action Taken by Nursing 07/05/20 19:27 07/05/20 19:40 Temperature 36.4 C L 36.4 C L Temperature Source Oral Oral Pulse Rate 90 96 H Pulse Rate [Apical] Pulse Rate from SpO2 Sensor Pulse Rhythm Pulse Strength Respiratory Rate 18 18 Respiratory Effort / Characteristics Respiratory Depth Respiratory Pattern Blood Pressure 98/54 L 98/54 L Blood Pressure [Left Arm] Blood Pressure Mean 68 68 Blood Pressure Mean [Left Arm] Blood Pressure Position Pulse Oximetry 97 97 Oxygen Delivery Method Sepsis Recent Fever Within 48 Hours Sepsis New/Unexplained Change in Mental Status Sepsis Action Taken by Nursing Laboratory Data Result diagrams: 07/05/20 15:47 07/05/20 15:47 Lab Results 07/05/20 07/05/20 07/05/20 Range/Units 15:47 15:47 16:10 WBC 6.65 (4.8-10.8) K/uL RBC 2.32 L (4.7-6.1) M/uL Hgb 6.5 L* (14.0-18.0) g/dL Hct 20.6 L* (42-52) % MCV 88.8 (80-100) fL MCH 28.0 (25-34) pg MCHC 31.6 L (32-36) g/dL RDW Std Deviation 59.4 H (36.4-46.3) fL RDW Coeff of Maryanne 18.5 H (11.5-14.5) % Plt Count 116 L (130-400) K/uL MPV 8.6 (7.4-10.4) fL Absolute Nucleated RBC 0.05 H (0-0) K/uL Nucleated RBC % (auto) 0.8 % Neutrophils % (Manual) 60.0 % Lymphocytes % (Manual) 30.0 % Monocytes % (Manual) 1.0 % Eosinophils % (Manual) 1.0 % Metamyelocytes % (Man) 5.0 % Myelocytes % (Man) 3.0 % Neutrophils # (Manual) 3.99 (1.4-6.5) K/uL Total Absolute Neuts 3.99 (1.4-6.5) K/uL Lymphocytes # (Manual) 2.00 (1.2-3.4) K/uL Total Abs Lymphocytes 2.00 (1.2-3.4) K/uL Monocytes # (Manual) 0.07 L (0.11-0.59) K/uL Eosinophils # (Manual) 0.07 (0-0.5) K/uL Metamyelocytes # (Man) 0.33 H (0-0) K/uL Myelocytes # (Manual) 0.20 H (0-0) K/uL Polychromasia 1+ Rouleaux 1+ Sodium 133 L (136-145) mmol/L Potassium 5.0 (3.5-5.1) mmol/L Chloride 93 L (98-107) mmol/L Carbon Dioxide 25 (21-32) mmol/L Anion Gap 15.0 H (3-11) BUN 26 H (7-18) mg/dl Creatinine 1.86 H (0.6-1.4) mg/dl Est Cr Clr Drug Dosing Not Reportable Est GFR ( Amer) 38.5 Est GFR (Non-Af Amer) 33.2 BUN/Creatinine Ratio 14.2 (10-20) Glucose 125 H (70-99) mg/dl Calcium 10.2 H (8.5-10.1) mg/dl Magnesium 2.2 (1.8-2.4) mg/dl Total Bilirubin 0.8 (0.2-1) mg/dl AST 39 H (15-37) U/L ALT 12 (12-78) U/L Alkaline Phosphatase 94 (45-117) U/L Total Protein 11.0 H (6.4-8.2) gm/dl Albumin 1.4 L (3.4-5.0) gm/dl Globulin 9.6 H (2.5-4.0) gm/dl Albumin/Globulin Ratio 0.1 L (0.9-2) TSH 0.812 (0.300-4.500) uIu/ml COVID-19 Eval Order SARS-CoV-2, RNA, NAAT (NEGATIVE) Blood Type B Positive Antibody Screen NEGATIVE Crossmatch See Detail 07/05/20 07/05/20 Range/Units 16:48 16:48 WBC (4.8-10.8) K/uL RBC (4.7-6.1) M/uL Hgb (14.0-18.0) g/dL Hct (42-52) % MCV (80-100) fL MCH (25-34) pg MCHC (32-36) g/dL RDW Std Deviation (36.4-46.3) fL RDW Coeff of Maryanne (11.5-14.5) % Plt Count (130-400) K/uL MPV (7.4-10.4) fL Absolute Nucleated RBC (0-0) K/uL Nucleated RBC % (auto) % Neutrophils % (Manual) % Lymphocytes % (Manual) % Monocytes % (Manual) % Eosinophils % (Manual) % Metamyelocytes % (Man) % Myelocytes % (Man) % Neutrophils # (Manual) (1.4-6.5) K/uL Total Absolute Neuts (1.4-6.5) K/uL Lymphocytes # (Manual) (1.2-3.4) K/uL Total Abs Lymphocytes (1.2-3.4) K/uL Monocytes # (Manual) (0.11-0.59) K/uL Eosinophils # (Manual) (0-0.5) K/uL Metamyelocytes # (Man) (0-0) K/uL Myelocytes # (Manual) (0-0) K/uL Polychromasia Rouleaux Sodium (136-145) mmol/L Potassium (3.5-5.1) mmol/L Chloride (98-107) mmol/L Carbon Dioxide (21-32) mmol/L Anion Gap (3-11) BUN (7-18) mg/dl Creatinine (0.6-1.4) mg/dl Est Cr Clr Drug Dosing Est GFR ( Amer) Est GFR (Non-Af Amer) BUN/Creatinine Ratio (10-20) Glucose (70-99) mg/dl Calcium (8.5-10.1) mg/dl Magnesium (1.8-2.4) mg/dl Total Bilirubin (0.2-1) mg/dl AST (15-37) U/L ALT (12-78) U/L Alkaline Phosphatase (45-117) U/L Total Protein (6.4-8.2) gm/dl Albumin (3.4-5.0) gm/dl Globulin (2.5-4.0) gm/dl Albumin/Globulin Ratio (0.9-2) TSH (0.300-4.500) uIu/ml COVID-19 Eval Order Covid19 [facility] SARS-CoV-2, RNA, NAAT NEGATIVE (NEGATIVE) Blood Type Antibody Screen Crossmatch Administered Medications Sodium Chloride (Nss 1000ml) 1,000 mls @ 125 mls/hr IV .Q8H STA Stop: 07/06/20 00:44 Last Admin: 07/05/20 16:50 Dose: 125 mls/hr Documented by: [id number] Discontinued Medications Hydromorphone HCl (Hydromorphone Inj 0.5 Mg/0.5 Ml Syr) 0.25 mg IV NOW STA Stop: 07/05/20 15:57 Last Admin: 07/05/20 16:02 Dose: 0.25 mg Documented by: [id number] Sodium Chloride (Nss 1000ml) 500 mls @ 999 mls/hr IV .Q31M ONE Stop: 07/05/20 17:15 Last Infusion: 07/05/20 17:41 Dose: 0 mls/hr Documented by: [id number] Admin: 07/05/20 16:50 Dose: 999 mls/hr Documented by: [id number] Ondansetron HCl (Ondansetron Inj 2 Mg/Ml 2 Ml Vial) 4 mg IV NOW STA Stop: 07/05/20 15:57 Last Admin: 07/05/20 16:02 Dose: 4 mg Documented by: [id number] Discharge Plan Visit Data Chief Complaint: Hip Pain Stated Complaint: PAIN IN HIPS & LOWER BACK ED Provider: Delroy William Discharge Problem: Acute pain of right hip, Cancer of pelvic bone, Anemia Discharge Instructions Krames/Other Patient Handouts: 2019-nCoV Forms Stand Alone Forms: My [facility] Prescriptions Prescriptions: No Action tramadol 50 mg tablet 50 mg PO DIRECTED PRN (Reason: Pain) RF: 0 metoprolol succinate 25 mg tablet extended release 24 hr 25 mg PO QAM RF: 0 Eliquis 5 mg tablet 2.5 mg PO Q12H RF: 0 pantoprazole 40 mg tablet,delayed release (DR/EC) 40 mg PO QAM RF: 0 metoprolol succinate 25 mg tablet extended release 24 hr 12.5 mg PO HS RF: 0 gabapentin 300 mg capsule 300 mg PO BID RF: 0 Referrals Referrals: Rito Awad [Primary Care Provider] -
[2020-07-05] MEDS ORDERED: ONDANSETRON INJ 2 MG/ML 2 ML VIAL IV STA (15:56)
[2020-07-05] MEDS ORDERED: HYDROmorphone INJ 0.5 MG/0.5 ML SYR IV STA (15:56)
[2020-07-05 16:04] LABS: Mean Corpuscular Hgb Conc 31.6 g/dL (32-36); Mean Platelet Volume 8.6 fL (7.4-10.4); Platelet Count 116 K/uL (130-400)
[2020-07-05 16:11] LABS: Alanine Aminotransferase 12 U/L (12-78); Albumin Level 1.4 gm/dl (3.4-5.0); Aspartate Aminotransferase 39 U/L (15-37); BUN Creatinine Ratio 14.2 (10-20); Blood Urea Nitrogen 26 mg/dl (7-18); Calcium 10.2 mg/dl (8.5-10.1); Carbon Dioxide 25 mmol/L (21-32); Chloride 93 mmol/L (98-107); Est GFR (African American) 38.5; Est GFR (Non-African American) 33.2; Glucose 125 mg/dl (70-99); Magnesium 2.2 mg/dl (1.8-2.4); Sodium 133 mmol/L (136-145)
[2020-07-05 16:22] LABS: Albumin Globulin Ratio 0.1 (0.9-2); Alkaline Phosphatase 94 U/L (45-117); Bilirubin,Total 0.8 mg/dl (0.2-1); Globulin 9.6 gm/dl (2.5-4.0); Thyroid Stimulating Hormone 0.812 uIu/ml (0.300-4.500)
[2020-07-05 16:27] LABS: Hematocrit (blood only) 20.6 % (42-52); Hemoglobin 6.5 g/dL (14.0-18.0)
[2020-07-05 16:40] LABS: Mean Corpuscular Volume 88.8 fL (80-100); Nucleated RBC # (auto) 0.05 K/uL (0-0); Nucleated RBC % (auto) 0.8 %; RDW Coefficient of Variation 18.5 % (11.5-14.5); RDW Standard Deviation 59.4 fL (36.4-46.3); Red Blood Count 2.32 M/uL (4.7-6.1); White Blood Count 6.65 K/uL (4.8-10.8)
[2020-07-05] MEDS ORDERED: SODIUM CHLORIDE 0.9% 250 ML IV PRN (16:44)
[2020-07-05] MEDS ORDERED: SODIUM CHLORIDE 0.9% 1000ML 500 ML IV ONE (16:45)
[2020-07-05] MEDS ORDERED: SODIUM CHLORIDE 0.9% 1000ML 1,000 ML IV STA (16:45)
[2020-07-05 16:53] LABS: ANC (manual) 3.99 K/uL (1.4-6.5); Eosinophils # (manual) 0.07 K/uL (0-0.5); Metamyelocytes # (manual) 0.33 K/uL (0-0); Monocytes # (manual) 0.07 K/uL (0.11-0.59); Neutrophils # (manual) 3.99 K/uL (1.4-6.5); Polychromasia 1+; Rouleaux 1+
--- NOTE | 2020-07-05 16:57 | CT Scan Report ---
CT SCAN OF THE LUMBAR SPINE WITHOUT IV CONTRAST CLINICAL HISTORY: Low back pain. Hip pain. COMPARISON STUDY: Abdominal CT dated 01/20/2016. MRI of the lumbar spine dated 04/16/2015. TECHNIQUE: CT scan of the lumbar spine is performed from the lower thoracic spine to the sacrum. Imag es are reviewed in the axial, sagittal, and coronal planes. IV contrast was not administered for this examination. A dose lowering technique was utilized adhering to the principles of ALARA. CT DOSE: 764.99 mGy.cm FINDINGS: The skeletal structures are osteopenic. There is no evidence of fracture or malalignment in volving the lumbar spine. Vertebral body height and alignment are maintained. Anterior and lateral ma rginal osteophytes are seen throughout. The transverse and spinous processes appear intact. No lytic or blastic lesion is identified involving the lumbar spine. There is advanced disc space narrowing at L4-L5 with associated endplate sclerosis. Moderate disc space narrowing is seen at L3-L4 and L5-S1. Posterior disc osteophyte complexes are seen at all lumbar levels and may contribute to mild multilev el acquired compromise of the central canal. Mild to moderate facet arthropathy is seen in the mid to lower lumbar region. The visualized sacrum is grossly intact. There is a large permeative destructiv e lesion partially visualized in the right iliac wing with pathologic fracture and a large soft tissu e component. There is fatty atrophy of the paraspinous musculature. Moderate to advanced atherosclero tic calcification is noted in the abdominal aorta. There are numerous retroperitoneal nodules seen bi laterally near the kidneys. A nodule below the right hemidiaphragm on axial image #32 measures 1.3 cm , and a nodule adjacent the upper pole the right kidney on image #90 measures 1.2 cm. A nodule below the left hemidiaphragm on image #44 measures 1.0 cm. An additional nodule adjacent to the left kidney is partially visualized on image #183 and measures at least 1.4 cm. Cholecystectomy clips are noted. There are small bilateral pleural effusions. Nodularity of the left adrenal gland is unchanged from 2016 and of doubtful significance. IMPRESSION: 1. There is no evidence of fracture or malalignment involving the lumbar spine. 2. Osteopenia and spondylotic change as above. 3. There is a large permeative destructive lesion partially visualized involving the right iliac wing with pathologic fracture. This contains a large soft tissue component and is consistent with neoplas m. 4. No lytic or blastic lesions are clearly identified involving the lumbar spine. 5. There are numerous retroperitoneal soft tissue nodules as detailed above consistent with metastati c disease. These are new from the 2016 examination. 6. Small pleural effusions. ACT 112: Negative or not required by law. Electronically signed by: Jordan Martinez M.D. 07/05/2020 4:55 PM
--- NOTE | 2020-07-05 17:14 | CT Scan Report ---
CT SCAN OF THE PELVIS WITHOUT IV CONTRAST CLINICAL HISTORY: Bilateral hip pain. COMPARISON STUDY: Pelvic CT dated 07/24/2012. TECHNIQUE: CT scan of the pelvis is performed from the pelvic inlet to the proximal femora. Images ar e reviewed in the axial, sagittal, and coronal planes. IV contrast was not administered for this exam ination. A dose lowering technique was utilized adhering to the principles of ALARA. The examination is degraded by streak artifact from a right hip arthroplasty. FINDINGS: The skeletal structures are heterogeneously osteopenic. There is a large permeative destructive lesio n centered in the medial right ilium. There is associated pathologic fracture, as well as a large sof t tissue component. The soft tissue component measures approximately 7.5 x 10 x 8.5 cm. This lesion m ay cross the sacroiliac joint and involve the right sacral ala. No additional findings are concerning for acute fracture. Additional subtle osteolytic lesions are suggested within anterior right ilium i mages #243 and #353, the medial wall of the left acetabulum on image #576, the anterior left acetabul um on image #525, the right ischium on image #769, and the left iliac wing on images #319 and #341. A right hip arthroplasty is in place. Mild degenerative joint space narrowing is seen in the left hip. The soft tissue component of the right iliac lesion extends into the right gluteal musculature and th e right iliacus muscle. There is generalized atrophy of the regional musculature. No additional intra muscular lesion is seen. The bladder is normal as visualized. The prostate gland is enlarged and hete rogeneous. Metastatic nodules are seen in the inferior right retroperitoneal space/right lower quadra nt on images #9, #11, and #16 of 176 and measure up to 1.7 cm. There is moderate atherosclerotic calc ification of the abdominal aorta and iliac arteries. There is no pelvic sidewall or inguinal lymphade nopathy. The visualized bowel loops are normal in caliber. A normal appendix is identified. IMPRESSION: 1. There is a large permeative destructive lesion centered in the medial right ilium as detailed abov e with pathologic fracture and a large associated soft tissue component. 2. Numerous additional subtle osteoblastic lesions are suggested throughout the pelvis. 3. Metastatic soft tissue nodules identified in the inferior right retroperitoneum/right lower quadra nt. ACT 112: Negative or not required by law. Electronically signed by: Jordan Martinez M.D. 07/05/2020 5:13 PM
--- NOTE | 2020-07-05 20:01 | History & Physical Report ---
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 Numerous additional subtle osteoblastic lesions are suggested throughout the pelvis. Continue pain control Abdominal Mass CT ABD/pelvis results reviewed that showed a large destructive soft tissue mass lesion of the right ilium, differential diagnosis included metastatic disease, myeloma, lymphoma. said that pt had test done with oncology last week Will discuss with daughter about prognosis Will reach to Oncology as well Consider palliative care for goal of care Paroxysmal atrial fibrillation: Pacemaker: Sinus node dysfunction: Rate controlled on metoprolol, will continue Continue Eliquis DVT prophylaxis: On Eliquis CODE STATUS DNR History of Present Illness Chief Complaint: Hip pain and generalized weakness Primary Care Provider: Rito Awad 79-year-old male with PMH paroxysmal atrial fibrillation anticoagulated on Eliquis, sinus node dysfunction s/p pacemaker, right iliac mass presents the ED for evaluation of generalized weakness and hip pain. Patient had many admissions at [facility] [place] recently for weakness and anemia that required transfusion. History obtained mostly from over the phone. Pt said that he has been having right hip pain for the last few weeks. He said that pain worsening when standing and walking. said that Pt has been having alot of pain. She said that pt is very weak. said that pt has no energy. said that she is not able to care for him. said that pt continue to lose weight. His hgb on admission was 6.5. Currently pt denies any pain, palpitation, dizziness and SOB. Allergies Allergy/AdvReac Type Severity Reaction Status Date / Time No Known Allergies Allergy Verified 07/05/20 16:26 Home Medications Medication Instructions Recorded Confirmed Type gabapentin 300 mg PO BID 06/25/18 07/05/20 History Eliquis 2.5 mg PO Q12H 05/09/20 07/05/20 History metoprolol succinate 25 mg PO QAM 05/09/20 07/05/20 History pantoprazole 40 mg PO QAM 05/09/20 07/05/20 History tramadol 50 mg PO DIRECTED PRN 05/09/20 07/05/20 History metoprolol succinate 12.5 mg PO HS 05/29/20 07/05/20 History Past Med/Surg History Medical History (Updated 07/05/20 @ 19:49 by Delroy William MD) Barretts esophagus CKD (chronic kidney disease), stage III Colon polyps GERD (gastroesophageal reflux disease) Hypomagnesemia Surgical History History of total right hip replacement Family History Other Family history non-contributory Social History Smoking Status: Never smoker Second Hand Exposure: No; Hx Alcohol Use: No Hx Substance Use: No Preferred Language: Russian Communication Ability: Effective Hearing Ability: Normal Hydrator Required: No Beliefs That Will Affect Care: None marital status: Current Living Situation: Spouse current occupational status: employed Feels Safe at Home: Yes Safety Concerns: Feels Safe At This Time Assistive Devices: Walker Review of Systems Review of Systems: All systems reviewed & are unremarkable except as noted in HPI & below Physical Exam Physical Exam: Constitutional: + thin Vitals as above Eyes: PERRL, EOMI, conjunctivae normal, anicteric sclerae ENMT: external ear and nose normal, oropharynx normal, +decrease hearing function Respiratory: normal respiratory effort, lungs clear to auscultation Cardiovascular: regular rate and regular rhythm Vessels: normal peripheral puls es Extremities: no edema Gastrointestinal: normal bowel sounds, soft, nontender Musculoskeletal: no cyanosis or clubbing, extremities motor strength 5/5 Skin: no rashes, warm and dry Neurologic: PERRL, EOMI, no face palsy, no dysarthria Psychiatric: alert and wake, euthymic affect Insight: + limited insight Forgetful Results & Data Results & Data ([place]) Vital Signs (Past 12 Hours) Vital Signs Temp Pulse Pulse Resp BP BP Pulse Ox 07/05/20 19:46 89 20 112/56 L 07/05/20 19:41 98 H 18 98/54 L 96 07/05/20 19:40 36.4 C L 96 H 18 98/54 L 97 07/05/20 19:31 89 18 97 07/05/20 19:30 95 H 21 107/70 96 07/05/20 19:27 36.4 C L 90 18 98/54 L 97 07/05/20 19:25 36.5 C 92 H 20 114/61 98 07/05/20 19:15 96 H 20 108/73 98 07/05/20 19:10 36.5 C 92 H 20 107/62 98 07/05/20 19:00 91 H 22 107/62 95 07/05/20 18:53 36.4 C L 96 H 20 114/72 98 07/05/20 18:45 90 19 114/72 98 07/05/20 18:30 88 23 107/53 L 97 07/05/20 18:24 96 H 21 112/77 98 07/05/20 18:23 36.3 C L 86 20 112/77 97 07/05/20 18:15 87 14 107/73 97 07/05/20 18:08 36.3 C L 95 H 18 106/64 97 07/05/20 18:01 93 H 18 97 07/05/20 18:00 88 24 98/69 L 97 07/05/20 17:51 37 C 83 20 96/56 L 97 07/05/20 17:49 84 18 96/56 L 97 07/05/20 17:47 89 20 99/50 L 97 07/05/20 17:30 83 84 18 93/47 L 97/58 L 97 07/05/20 17:01 89 20 98 07/05/20 17:00 91 H 20 99/56 L 97 07/05/20 16:48 91 H 22 103/53 L 98 07/05/20 16:32 87 22 97 07/05/20 16:06 86 20 97 07/05/20 16:05 87 85 20 100/64 100/64 97 07/05/20 16:00 85 20 97 07/05/20 15:53 87 20 94 07/05/20 15:50 86 18 97 07/05/20 15:48 87 14 96/55 L 96 07/05/20 15:07 36.3 C L 82 20 110/[address] SCAN OF THE PELVIS WITHOUT IV CONTRAST CLINICAL HISTORY: Bilateral hip pain. COMPARISON STUDY: Pelvic CT dated 07/24/2012. TECHNIQUE: CT scan of the pelvis is performed from the pelvic inlet to the proximal femora. Images are reviewed in the axial, sagittal, and coronal planes. IV contrast was not administered for this examination. A dose lowering technique was utilized adhering to the principles of ALARA. The examination is degraded by streak artifact from a right hip arthroplasty. FINDINGS: The skeletal structures are heterogeneously osteopenic. There is a large permeative destructive lesion centered in the medial right ilium. There is associated pathologic fracture, as well as a large soft tissue component. The soft tissue component measures approximately 7.5 x 10 x 8.5 cm. This lesion may cross the sacroiliac joint and involve the right sacral ala. No additional findings are concerning for acute fracture. Additional subtle osteolytic lesions are suggested within anterior right ilium images #243 and #353, the medial wall of the left acetabulum on image #576, the anterior left acetabulum on image #525, the right ischium on image #769, and the left iliac wing on images #319 and #341. A right hip arthroplasty is in place. Mild degenerative joint space narrowing is seen in the left hip. The soft tissue component of the right iliac lesion extends into the right gluteal musculature and the right iliacus muscle. There is generalized atrophy of the regional musculature. No additional intramuscular lesion is seen. The bladder is normal as visualized. The prostate gland is enlarged and heterogeneous. Metastatic nodules are seen in the inferior right retroperitoneal space/right lower quadrant on images #9, #11, and #16 of 176 and measure up to 1.7 cm. There is moderate atherosclerotic calcification of the abdominal aorta and iliac arteries. There is no pelvic sidewall or inguinal lymphadenopathy. The visualized bowel loops are normal in caliber. A normal appendix is identified. IMPRESSION: 1. There is a large permeative destructive lesion centered in the medial right ilium as detailed above with pathologic fracture and a large associated soft tissue component. 2. Numerous additional subtle osteoblastic lesions are suggested throughout the pelvis. 3. Metastatic soft tissue nodules identified in the inferior right retroperitoneum/right lower quadrant. ACT 112: Negative or not required by law. Electronically signed by: Jordan Martinez M.D. 07/05/2020 5:13 PM Dictated: 07/05/201657Transcribed: 07/05/201657 ADDENDUM ADDENDUM: In addition to the above findings, an additional subtle osteolytic lesion is suggested within the left pedicle of T12 on image #30. Electronically signed by: Jordan Martinez M.D. 07/05/2020 5:[address] SCAN OF THE LUMBAR SPINE WITHOUT IV CONTRAST CLINICAL HISTORY: Low back pain. Hip pain. COMPARISON STUDY: Abdominal CT dated 01/20/2016. MRI of the lumbar spine dated 04/16/2015. TECHNIQUE: CT scan of the lumbar spine is performed from the lower thoracic s pine to the sacrum. Images are reviewed in the axial, sagittal, and coronal planes. IV contrast was not administered for this examination. A dose lowering technique was utilized adhering to the principles of ALARA. CT DOSE: 764.99 mGy.cm FINDINGS: The skeletal structures are osteopenic. There is no evidence of fracture or malalignment involving the lumbar spine. Vertebral body height and alignment are maintained. Anterior and lateral marginal osteophytes are seen throughout. The transverse and spinous processes appear intact. No lytic or blastic lesion is identified involving the lumbar spine. There is advanced disc space narrowing at L4-L5 with associated endplate sclerosis. Moderate disc space narrowing is seen at L3-L4 and L5-S1. Posterior disc osteophyte complexes are seen at all lumbar levels and may contribute to mild multilevel acquired compromise of the central canal. Mild to moderate facet arthropathy is seen in the mid to lower lumbar region. The visualized sacrum is grossly intact. There is a large permeative destructive lesion partially visualized in the right iliac wing with pathologic fracture and a large soft tissue component. There is fatty atrophy of the paraspinous musculature. Moderate to advanced atherosclerotic calcification is noted in the abdominal aorta. There are numerous retroperitoneal nodules seen bilaterally near the kidneys. A nodule below the ri ght hemidiaphragm on axial image #32 measures 1.3 cm, and a nodule adjacent the upper pole the right kidney on image #90 measures 1.2 cm. A nodule below the left hemidiaphragm on image #44 measures 1.0 cm. An additional nodule adjacent to the left kidney is partially visualized on image #183 and measures at least 1.4 cm. Cholecystectomy clips are noted. There are small bilateral pleural effusions. Nodularity of the left adrenal gland is unchanged from 2016 and of doubtful significance. IMPRESSION: 1. There is no evidence of fracture or malalignment involving the lumbar spine. 2. Osteopenia and spondylotic change as above. 3. There is a large permeative destructive lesion partially visualized involving the right iliac wing with pathologic fracture. This contains a large soft tissue component and is consistent with neoplasm. 4. No lytic or blastic lesions are clearly identified involving the lumbar spine. 5. There are numerous retroperitoneal soft tissue nodules as detailed above consistent with metastatic disease. These are new from the 2016 examination. 6. Small pleural effusions. ACT 112: Negative or not required by law. Electronically signed by: Jordan Martinez M.D. 07/05/2020 4:55 PM Dictated: 07/05/201640Transcribed: 07/05/201640 Code Status & VTE Plan VTE Prophylaxis Plan VTE Prophylaxis will be ordered: Yes
[2020-07-05] MEDS ORDERED: ACETAMINOPHEN 325 MG TAB PO PRN (20:58)
[2020-07-05] MEDS: METOPROLOL SUCC 25MG EXT REL TAB PO SCH (21:38)
[2020-07-05] MEDS: GABAPENTIN 300 MG CAP PO SCH (21:39)
[2020-07-06 00:22] LABS: Hematocrit (blood only) 26.4 % (42-52); Hemoglobin 8.8 g/dL (14.0-18.0)
[2020-07-06 03:02] LABS: Appearance Urine Clear (Clear); Bacteria Urine Automated Negative (Negative); Bilirubin Urine Negative (Negative); Blood Urine Negative (Negative); Color Urine Dark Yellow; Glucose Urine UA Negative (Negative); Ketones Urine Negative (Negative); Leukocyte Esterase Urine Negative (Negative); Nitrite Urine Negative (Negative); Protein Urine 1+ (Negative); RBC Urine Automated 0-4 /hpf (0-4); Specific Gravity Urine 1.016 (1.000-1.030); Urobilinogen Urine Positive (Negative)
[2020-07-06 06:30] LABS: Hematocrit (blood only) 28.1 % (42-52); Hemoglobin 9.2 g/dL (14.0-18.0); Mean Corpuscular Hemoglobin 28.7 pg (25-34); Mean Corpuscular Hgb Conc 32.7 g/dL (32-36); Mean Corpuscular Volume 87.5 fL (80-100); Mean Platelet Volume 8.9 fL (7.4-10.4); Nucleated RBC # (auto) 0.14 K/uL (0-0); Nucleated RBC % (auto) 2.2 %; Platelet Count 100 K/uL (130-400); RDW Coefficient of Variation 17.2 % (11.5-14.5); RDW Standard Deviation 54.5 fL (36.4-46.3); Red Blood Count 3.21 M/uL (4.7-6.1); White Blood Count 6.52 K/uL (4.8-10.8)
--- NOTE | 2020-07-06 06:43 | Electrocardiogram Report ---
Test Reason : Blood Pressure : / mmHG Vent. Rate : 087 BPM Atrial Rate : 120 BPM P-R Int : 168 ms QRS Dur : 128 ms QT Int : 394 ms P-R-T Axes : 077 -75 -34 degrees QTc Int : 474 ms Suspect unspecified pacemaker failure Sinus rhythm with PACs and intermittent atrial pacing Right bundle branch block Left anterior fascicular block Bifascicular block Abnormal ECG When compared with ECG of 07-JUN-2020 16:26, Intermittent atrial pacing is now present Confirmed by Isaac Alatorre ([id number]) on 07/06/2020 6:43:18 AM Referred By: Confirmed By:Isaac Alatorre
[2020-07-06 07:04] LABS: BUN Creatinine Ratio 16.5 (10-20); Creatinine Clr Calc Pharmacy 20.9 ml/min; Est GFR (African American) 40.8; Est GFR (Non-African American) 35.2; Potassium 4.6 mmol/L (3.5-5.1)
[2020-07-06] MEDS: GABAPENTIN 300 MG CAP PO SCH ×2 (08:40→20:41)
[2020-07-06] MEDS: APIXABAN 2.5 MG TAB PO SCH ×2 (08:40→20:40)
[2020-07-06] MEDS: PANTOprazole 40 MG TAB PO SCH (08:40)
[2020-07-06] MEDS: METOPROLOL SUCC 25MG EXT REL TAB PO SCH ×2 (08:41→20:41)
[2020-07-06] MEDS ORDERED: SODIUM CHLORIDE 0.9% 500 ML IV SCH (09:00)
[2020-07-06] MEDS: guaiFENesin SUGAR FREE 100 MG/5 ML UDC PO PRN (17:09)
[2020-07-06] MEDS: predniSONE 20 MG TAB PO SCH (17:09)
--- NOTE | 2020-07-06 17:21 | Hospitalist Progress Note ---
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 Numerous additional subtle osteoblastic lesions are suggested throughout the pelvis. Continue pain control Abdominal Mass CT ABD/pelvis results reviewed that showed a large destructive soft tissue mass lesion of the right ilium, differential diagnosis included metastatic disease, myeloma, lymphoma. said that pt had test done with oncology last week Will discuss with daughter about prognosis Will reach to Oncology tomorrow to discuss abnormal CT finding Consider palliative care for goal of care Paroxysmal atrial fibrillation: Pacemaker: Sinus node dysfunction: Rate controlled on metoprolol, will continue Continue Eliquis Severe protein-calorie malnutrition BMI 15.6 Increase protein intake DVT prophylaxis: On Eliquis CODE STATUS DNR Admission and Anticipated Discharge Date Admission Date: July 05, 2020 Subjective Pt was seen and examined for follow up of anemia Lying in bed with no distress He said that he is not having any pain in his hip today Pt would like to go home to be with his Denies any chest pain, palpitation, dizziness and SOB Review of Systems Review of Systems: All systems reviewed & are unremarkable except as noted in Subjective Physical Exam Physical Exam: Constitutional: + thin Vitals as above Eyes: PERRL, EOMI, conjunctivae normal, anicteric sclerae ENMT: external ear and nose normal, oropharynx normal, +decrease hearing function Respiratory: normal respiratory effort, lungs clear to auscultation Cardiovascular: regular rate and regular rhythm Vessels: normal peripheral p ulses Extremities: no edema Gastrointestinal: normal bowel sounds, soft, nontender Musculoskeletal: no cyanosis or clubbing, extremities motor strength 5/5 Skin: no rashes, warm and dry Neurologic: PERRL, EOMI, no face palsy, no dysarthria Psychiatric: alert and wake, euthymic affect Insight: + limited insight Forgetful Results & Data Results & Data ([facility]) Vital Signs (Past 12 Hours) Vital Signs Temp Pulse Resp BP Pulse Ox 07/06/20 15:28 36.4 C L 90 16 111/53 L 95 07/06/20 06:34 36.3 C L 89 16 108/59 L 93
[2020-07-07] MEDS: guaiFENesin SUGAR FREE 100 MG/5 ML UDC PO PRN (04:44)
[2020-07-07 06:25] LABS: Hematocrit (blood only) 27.7 % (42-52); Hemoglobin 9.3 g/dL (14.0-18.0); Mean Corpuscular Hemoglobin 29.5 pg (25-34); Mean Corpuscular Hgb Conc 33.6 g/dL (32-36); Mean Corpuscular Volume 87.9 fL (80-100); Nucleated RBC # (auto) 0.11 K/uL (0-0); Nucleated RBC % (auto) 1.9 %; RDW Coefficient of Variation 17.3 % (11.5-14.5); RDW Standard Deviation 56.1 fL (36.4-46.3); Red Blood Count 3.15 M/uL (4.7-6.1); White Blood Count 5.61 K/uL (4.8-10.8)
[2020-07-07 06:56] LABS: BUN Creatinine Ratio 17.9 (10-20); Calcium 9.8 mg/dl (8.5-10.1); Creatinine Clr Calc Pharmacy 22.4 ml/min; Est GFR (African American) 44.5; Est GFR (Non-African American) 38.4; Potassium 4.4 mmol/L (3.5-5.1)
[2020-07-07 07:10] LABS: Mean Platelet Volume 9.2 fL (7.4-10.4); Platelet Count 88 K/uL (130-400)
[2020-07-07] MEDS: predniSONE 20 MG TAB PO SCH (07:45)
[2020-07-07] MEDS: PANTOprazole 40 MG TAB PO SCH (07:45)
[2020-07-07] MEDS: GABAPENTIN 300 MG CAP PO SCH ×2 (07:45→20:20)
[2020-07-07] MEDS: APIXABAN 2.5 MG TAB PO SCH ×2 (07:46→20:20)
[2020-07-07] MEDS: METOPROLOL SUCC 25MG EXT REL TAB PO SCH ×2 (07:46→20:20)
[2020-07-07] MEDS ORDERED: SODIUM CHLORIDE 0.9% 500 ML IV SCH (08:00)
--- NOTE | 2020-07-07 17:54 | Hospitalist Progress Note ---
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 Numerous additional subtle osteoblastic lesions are suggested throughout the pelvis. Continue pain control JOSE Possible related to Poor intake, Multiple myoloma Creatinine 1.6 today Will start gently hydration Will increase PO intake Continue monitor BMP Cancer Pelvis bone CT ABD/pelvis results reviewed that showed a large destructive soft tissue mass lesion of the right ilium, differential diagnosis included metastatic disease, myeloma, lymphoma. CT guided soft tissue right iliac bone biopsy was done at [facility] on 07/04/20 Oncology was consulted Free light chain, quantitative Ig, DENNIS, B2M, cytogenetics, FISH panel order by O ncologlela pending Case discussed with Pathologist Dr. Lal about abnormal blood smear that consisting with finding of multiple myeloma Daughter was notified about the CT bone finding abnormal Paroxysmal atrial fibrillation: Pacemaker: Sinus node dysfunction: Rate controlled on metoprolol, will continue Continue Eliquis Severe protein-calorie malnutrition BMI 15.6 Increase protein intake DVT prophylaxis: On Eliquis CODE STATUS DNR Admission and Anticipated Discharge Date Admission Date: July 05, 2020 Subjective Pt was seen and examined for follow up of anemia He said that he is not having any pain in his hip today Pt is very weak that i have to help the nurse to help transfer him to bed I spoke to daughter in details and provided with updates and answered all question Daughter would like her dad to go to rehab because her mother is no longer to c are for him because she has a broken arm Denies any chest pain, palpitation, dizziness and SOB Review of Systems Review of Systems: All systems reviewed & are unremarkable except as noted in Subjective Physical Exam Physical Exam: Constitutional: + thin Vitals as above Eyes: PERRL, EOMI, conjunctivae normal, anicteric sclerae ENMT: external ear and nose normal, oropharynx normal, +decrease hearing function Respiratory: normal respiratory effort, lungs clear to auscultation Cardiovascular: regular rate and regular rhythm Vessels: normal peripheral pulses Extremities: no edema Gastrointestinal: normal bowel sounds, soft, nontender Musculoskeletal: no cyanosis or clubbing, extremities motor strength 5/5 Skin: no rashes, warm and dry Neurologic: PERRL, EOMI, no face palsy, no dysarthria Psychiatric: alert and wake, euthymic affect Insight: + limited insight Forgetful Results & Data Results & Data ([facility]) Vital Signs (Past 12 Hours) Vital Signs Temp Pulse Resp BP Pulse Ox 07/07/20 14:55 36.4 C L 81 16 121/68 95 07/07/20 07:41 36.4 C L 95 H 16 118/68 96
--- NOTE | 2020-07-07 18:36 | Consultation ---
Date of Consultation July 07, 2020 Assessment & Plan (1) Cancer of pelvic bone: - CT guided soft tissue right iliac bone biopsy was done at [facility] on 07/04/20 - pathology report is still pending - however, his anemia, renal failure, bone lesions, huge protein-albumin gap, serum immunofixation indicate that patient has IgA multiple myeloma - will check serum free light chain, quantitative Ig, DENNIS, B2M - will need to check cytogenetics, FISH panel - will discuss with patient and family about diagnosis and treatment plan - bortezomib based therapy and denosumab - will follow with you - thank you for this consult and feel free to contact if any questions (2) Anemia: - most likely secondary to multiple myeloma - blood transfusion as needed for symptomatic anemia - monitor for any GI bleed since patient is on anticoagulation - myeloma specific treatment will be needed History of Present Illness Reason for Consultation: Anemia, possible malignancy Attending Physician: Yanet Wayne MD History of Present Illness 79-year-old male with hx of paroxysmal atrial fibrillation anticoagulated on Eliquis, sinus node dysfunction s/p pacemaker, right iliac mass presents the ED for evaluation of generalized weakness and hip pain. Patient had many admissions at [facility] recently for weakness and anemia that required transfusion. Pt said that he has been having right hip pain for the last few weeks. He said that pain worsening when standing and walking. said that Pt has been having alot of pain. She said that pt is very weak. said that she is not able to care for him. said that pt continue to lose weight. His hgb on admission was 6.5. Patient was transfused blood. He has been seen by Dr. Soliz at [facility] for evaluation of anemia and possible malignancy. A CT guided bone soft tissue biopsy was done on 07/04/20. Patient was seen and examined at [facility]. Patient is very hard of hearing and poor historian. Lab data and imaging studies were reviewed. Allergies Allergy/AdvReac Type Severity Reaction Status Date / Time No Known Allergies Allergy Verified 07/05/20 16:26 Home Medications Medication Instructions Recorded Confirmed Type gabapentin 300 mg PO BID 06/25/18 07/05/20 History Eliquis 2.5 mg PO Q12H 05/09/20 07/05/20 History metoprolol succinate 25 mg PO QAM 05/09/20 07/05/20 History pantoprazole 40 mg PO QAM 05/09/20 07/05/20 History tramadol 50 mg PO DIRECTED PRN 05/09/20 07/05/20 History metoprolol succinate 12.5 mg PO HS 05/29/20 07/05/20 History Patient History Medical History (Updated 07/05/20 @ 19:49 by Delroy William MD) Barretts esophagus CKD (chronic kidney disease), stage III Colon polyps GERD (gastroesophageal reflux disease) Hypomagnesemia Surgical History History of total right hip replacement Family History Other Family history non-contributory Social History Smoking Status: Never smoker Second Hand Exposure: No; Hx Alcohol Use: No Hx Substance Use: No Preferred Language: Citizen Of [place] Communication Ability: Effective Hearing Ability: Normal Barrel Coater Required: No Beliefs That Will Affect Care: None marital status: Current Living Situation: Spouse current occupational status: employed Feels Safe at Home: Yes Safety Concerns: Feels Safe At This Time Assistive Devices: Walker Review of Systems Review of Systems: Unobtainable due to cognitive status Physical Exam Physical Exam: Constitutional: Vitals are stable. CACHECTIC, HARD OF HEARING, FRAIL Eyes: Eyes are KATTY EOMI without conjunctival erythema or icterus. ENT: External examination was negative for masses. Neck: Negative for masses or palpable thyromegaly. Respiratory: Lung sounds were generally clear bilaterally. Cardiovascular: Heart was RRR without significant murmur, gallops or rubs. Gastrointestinal: The abdomen was soft with normal bowel sounds. Lymphatic system: There was no palpable peripheral lymphadenopathy. Musculoskeletal System: MARKED SARCOPENIA Skin: The skin was negative for jaundice. Neurologic Exam: The exam was negative for focal findings. Extremities: Negative for edema or erythema Results & Data ([facility]) Vital Signs (Past 12 Hours) Vital Signs Temp Pulse Resp BP Pulse Ox 07/07/20 14:55 36.4 C L 81 16 121/68 95 07/07/20 07:41 36.4 C L 95 H 16 118/68 96 Laboratory Results Short CBC 06/07/20 06/07/20 Range/Units 16:37 16:37 WBC 7.87 (4.8-10.8) K/uL Hgb 8.2 L (14.0-18.0) g/dL Hct 26.0 L (42-52) % Plt Count 457 H (130-400) K/uL Lactate 2.3 H* (0.4-2.0) mmol/L BMP 06/07/20 16:37 Sodium 133 L Potassium 3.9 Chloride 99 Carbon Dioxide 22 BUN 12 Creatinine 1.19 Glucose 95 Calcium 9.4 Cardiac Enzymes 06/07/20 Range/Units 16:37 Troponin I < 0.015 (0-0.045) ng/ml Liver Function 06/07/20 Range/Units 16:37 Total Bilirubin 0.6 (0.2-1) mg/dl AST 42 H (15-37) U/L ALT 19 (12-78) U/L Alkaline Phosphatase 101 (45-117) U/L Albumin 1.3 L (3.4-5.0) gm/dl Diagnostic Findings CT SCAN OF THE PELVIS WITHOUT IV CONTRAST CLINICAL HISTORY: Bilateral hip pain. COMPARISON STUDY: Pelvic CT dated 07/24/2012. TECHNIQUE: CT scan of the pelvis is performed from the pelvic inlet to the proximal femora. Images are reviewed in the axial, sagittal, and coronal planes. IV contrast was not administered for this examination. A dose lowering technique was utilized adhering to the principles of ALARA. The examination is degraded by streak artifact from a right hip arthroplasty. FINDINGS: The skeletal structures are heterogeneously osteopenic. There is a large permeative destructive lesion centered in the medial right ilium. There is associated pathologic fracture, as well as a large soft tissue component. The soft tissue component measures approximately 7.5 x 10 x 8.5 cm. This lesion may cross the sacroiliac joint and involve the right sacral ala. No additional findings are concerning for acute fracture. Additional subtle osteolytic lesions are suggested within anterior right ilium images #243 and #353, the medial wall of the left acetabulum on image #576, the anterior left acetabulum on image #525, the right ischium on image #769, and the left iliac wing on images #319 and #341. A right hip arthroplasty is in place. Mild degenerative joint space narrowing is seen in the left hip. The soft tissue component of the right iliac lesion extends into the right gluteal musculature and the right iliacus muscle. There is generalized atrophy of the regional musculature. No additional intramuscular lesion is seen. The bladder is normal as visualized. The prostate gland is enlarged and heterogeneous. Metastatic nodules are seen in the inferior right retroperitoneal space/right lower quadrant on images #9, #11, and #16 of 176 and measure up to 1.7 cm. There is moderate atherosclerotic calcification of the abdominal aorta and iliac arteries. There is no pelvic sidewall or inguinal lymphadenopathy. The visualized bowel loops are normal in caliber. A normal appendix is identified. IMPRESSION: 1. There is a large permeative destructive lesion centered in the medial right ilium as detailed above with pathologic fracture and a large associated soft tis greg component. 2. Numerous additional subtle osteoblastic lesions are suggested throughout the pelvis. 3. Metastatic soft tissue nodules identified in the inferior right retroperitoneum/right lower quadrant. Electronically signed by: Jordan Martinez M.D. 07/05/2020 5:13 PM Dictated: 07/05/201657Transcribed: 07/05/201657 ADDENDUM ADDENDUM: In addition to the above findings, an additional subtle osteolytic lesion is suggested within the left pedicle of T12 on image #30. Electronically signed by: Jordan Martinez M.D. 07/05/2020 5:[address] SCAN OF THE LUMBAR SPINE WITHOUT IV CONTRAST CLINICAL HISTORY: Low back pain. Hip pain. COMPARISON STUDY: Abdominal CT dated 01/20/2016. MRI of the lumbar spine dated 04/16/2015. TECHNIQUE: CT scan of the lumbar spine is performed from the lower thoracic spine to the sacrum. Images are reviewed in the axial, sagittal, and coronal planes. IV contrast was not administered for this examination. A dose lowering technique was utilized adhering to the principles of ALARA. CT DOSE: 764.99 mGy.cm FINDINGS: The skeletal structures are osteopenic. There is no evidence of fracture or malalignment involving the lumbar spine. Vertebral body height and alignment are maintained. Anterior and lateral marginal osteophytes are seen throughout. The transverse and spinous processes appear intact. No lytic or blastic lesion is identified involving the lumbar spine. There is advanced disc space narrowing at L4-L5 with associated endplate sclerosis. Moderate disc space narrowing is seen at L3-L4 and L5-S1. Posterior disc osteophyte complexes are seen at all lumbar levels and may contribute to mild multilevel acquired compromise of the central canal. Mild to moderate facet arthropathy is seen in the mid to lower lumbar region. The visualized sacrum is grossly intact. There is a large permeative destructive lesion partially visualized in the right iliac wing with pathologic fracture and a large soft tissue component. There is fatty atrophy of the paraspinous musculature. Moderate to advanced atherosclerotic calcification is noted in the abdominal aorta. There are numerous retroperitoneal nodules seen bilaterally near the kidneys. A nodule below the right hemidiaphragm on axial image #32 measures 1.3 cm, and a nodule adjacent the upper pole the right kidney on image #90 measures 1.2 cm. A nodule below the left hemidiaphragm on image #44 measures 1.0 cm. An additional nodule adjacent to the left kidney is partially visualized on image #183 and measures at least 1.4 cm. Cholecystectomy clips are noted. There are small bilateral pleural effusions. Nodularity of the left adrenal gland is unchanged from 2016 and of doubtful significance. IMPRESSION: 1. There is no evidence of fracture or malalignment involving the lumbar spine. 2. Osteopenia and spondylotic change as above. 3. There is a large permeative destructive lesion partially visualized involving the right iliac wing with pathologic fracture. This contains a large soft tissue component and is consistent with neoplasm. 4. No lytic or blastic lesions are clearly identified involving the lumbar spine. 5. There are numerous retroperitoneal soft tissue nodules as detailed above consistent with metastatic disease. These are new from the 2016 examination. 6. Small pleural effusions. ACT 112: Negative or not required by law. Electronically signed by: Jordan Martinez M.D. 07/05/2020 4:55 PM Dictated: 07/05/201640Transcribed: 07/05/201640
[2020-07-08] MEDS: guaiFENesin SUGAR FREE 100 MG/5 ML UDC PO PRN ×2 (07:08→19:27)
[2020-07-08] MEDS: METOPROLOL SUCC 25MG EXT REL TAB PO SCH ×2 (07:31→20:26)
[2020-07-08] MEDS: PANTOprazole 40 MG TAB PO SCH (07:31)
[2020-07-08] MEDS: predniSONE 20 MG TAB PO SCH (07:31)
[2020-07-08] MEDS: GABAPENTIN 300 MG CAP PO SCH ×2 (07:31→20:26)
[2020-07-08] MEDS: APIXABAN 2.5 MG TAB PO SCH ×2 (07:31→20:27)
[2020-07-08 07:32] LABS: BUN Creatinine Ratio 14.9 (10-20); Calcium 10.5 mg/dl (8.5-10.1); Creatinine Clr Calc Pharmacy 22.1 ml/min; Est GFR (African American) 43.8; Est GFR (Non-African American) 37.8; Potassium 3.8 mmol/L (3.5-5.1)
[2020-07-08 08:04] LABS: Immunoglobulin M 19.3 mg/dl (40-230)
[2020-07-08 09:47] LABS: Hematocrit (blood only) 28.7 % (42-52); Hemoglobin 9.2 g/dL (14.0-18.0); Mean Corpuscular Hemoglobin 28.5 pg (25-34); Mean Corpuscular Hgb Conc 32.1 g/dL (32-36); Mean Corpuscular Volume 88.9 fL (80-100); Nucleated RBC # (auto) 0.09 K/uL (0-0); Nucleated RBC % (auto) 1.4 %; RDW Coefficient of Variation 17.2 % (11.5-14.5); Red Blood Count 3.23 M/uL (4.7-6.1); White Blood Count 6.58 K/uL (4.8-10.8)
[2020-07-08 09:51] LABS: Platelet Count 81 K/uL (130-400)
--- NOTE | 2020-07-08 18:42 | Hospitalist Progress Note ---
Date of Service July 08, 2020 Assessment & Plan (1) Weakness: Presenting on admission with generalized weakness and weight loss Possible due to anemia from malignancy Multiple admissions for anemia that required transfusion Continue physical and occupational therapy Fall precaution Consider inpatient rehab Anemia Mostly due to malignancy Hgb 6.5 on admission S/P 1 unit PRBC on 07/05 Hgb 9.2 today Continue monitor CBC Hip pain Mostly due to metastasis to bone CT abd/pelvis showed large permeative destructive lesion centered in the medial right ilium as detailed above with pathologic fracture and a large associated soft tissue component. Numerous additional subtle osteoblastic lesions are suggested throughout the pelvis. Continue pain control JOSE Possible related to Poor intake, Multiple myoloma Creatinine 1.6 today Will start gently hydration Will increase PO intake Continue monitor BMP Cancer Pelvis bone CT ABD/pelvis results reviewed that showed a large destructive soft tissue mass lesion of the right ilium, differential diagnosis included metastatic disease, myeloma, lymphoma. CT guided soft tissue right iliac bone biopsy was done at [facility] on 07/04/20 Oncology was consulted Free light chain, quantitative Ig, DENNIS, B2M, cytogenetics, FISH panel order by Oncology pending Case discussed with Pathologist Dr. Lal about abnormal blood smear that consisting with finding of multiple myeloma Daughter was notified about the CT bone finding abnormal Case discussed with Oncology - Pt has a very poor prognosis Spoke to oncology that spoke to and daughter, family does not want to proceed with any treatment Will consult palliative care for goal of care Paroxysmal atrial fibrillation: Pacemaker: Sinus node dysfunction: Rate controlled on metoprolol, will continue Continue Eliquis Severe protein-calorie malnutrition BMI 15.6 Increase protein intake DVT prophylaxis: On Eliquis CODE STATUS DNR Disposition Waiting for placement to rehab Admission and Anticipated Discharge Date Admission Date: July 05, 2020 Subjective Pt was seen and examined for follow up of anemia Lying in bed with no distress Pt said that he feels ok He does not want to go to rehab He said that he would rather before going to rehab I spoke to today and would like him to go to [facility] since the [email or web address] works there He is very anxious to go home I called the daughter unfortunately no one answered Denies any chest pain, palpitation, dizziness and SOB Physical Exam Physical Exam: Constitutional: + thin Vitals as above Eyes: PERRL, EOMI, conjunctivae normal, anicteric sclerae ENMT: external ear and nose normal, oropharynx normal, +decrease hearing function Respiratory: normal respiratory effort, lungs clear to auscultation Cardiovascular: regular rate and regular rhythm Vessels: normal peripheral pulses Extremities: no edema Gastrointestinal: normal bowel sounds, soft, nontender Musculoskeletal: no cyanosis or clubbing, extremities motor strength 5/5 Skin: no rashes, warm and dry Neurologic: PERRL, EOMI, no face palsy, no dysarthria Psychiatric: alert and wake, euthymic affect Insight: + limited insight Forgetful Results & Data Results & Data ([facility]) Vital Signs (Past 12 Hours) Vital Signs Temp Pulse Resp BP Pulse Ox 07/08/20 15:05 36.9 C 91 H 16 130/66 95 07/08/20 07:23 36.4 C L 93 H 16 137/73 97 07/08/20 07:09 18 92
[2020-07-08] MEDS: traMADol HCL 50 MG TABLET PO PRN (19:27)
[2020-07-09] MEDS: guaiFENesin SUGAR FREE 100 MG/5 ML UDC PO PRN ×2 (05:48→20:42)
[2020-07-09 06:41] LABS: Hemoglobin 9.5 g/dL (14.0-18.0); Mean Corpuscular Hemoglobin 28.4 pg (25-34); Mean Corpuscular Hgb Conc 31.7 g/dL (32-36); Mean Corpuscular Volume 89.8 fL (80-100); Nucleated RBC # (auto) 0.12 K/uL (0-0); RDW Coefficient of Variation 17.2 % (11.5-14.5); RDW Standard Deviation 56.3 fL (36.4-46.3); Red Blood Count 3.34 M/uL (4.7-6.1); White Blood Count 5.87 K/uL (4.8-10.8)
[2020-07-09 07:15] LABS: BUN Creatinine Ratio 17.8 (10-20); Calcium 10.5 mg/dl (8.5-10.1); Est GFR (African American) 48.3; Est GFR (Non-African American) 41.7; Potassium 4.1 mmol/L (3.5-5.1)
[2020-07-09 07:17] LABS: Mean Platelet Volume 9.6 fL (7.4-10.4); Platelet Count 80 K/uL (130-400)
[2020-07-09] MEDS: traMADol HCL 50 MG TABLET PO PRN (08:32)
[2020-07-09] MEDS: METOPROLOL SUCC 25MG EXT REL TAB PO SCH ×2 (08:32→20:43)
[2020-07-09] MEDS: GABAPENTIN 300 MG CAP PO SCH ×2 (08:32→20:46)
[2020-07-09] MEDS: APIXABAN 2.5 MG TAB PO SCH ×2 (08:32→20:42)
[2020-07-09] MEDS: predniSONE 20 MG TAB PO SCH (08:32)
[2020-07-09] MEDS: PANTOprazole 40 MG TAB PO SCH (08:32)
--- NOTE | 2020-07-09 11:56 | Hospitalist Progress Note ---
Date of Service July 09, 2020 Assessment & Plan (1) Weakness: Presenting on admission with generalized weakness and weight loss Possible due to anemia from malignancy Multiple admissions for anemia that required transfusion Continue physical and occupational therapy Fall precaution Consider inpatient rehab Anemia Most likely due to malignancy/ MM Hgb 6.5 on admission S/P 1 unit PRBC on 07/05 Hgb 9.5 today Continue monitor CBC Hip pain Mostly due to metastasis to bone CT abd/pelvis showed large permeative destructive lesion centered in the medial right ilium as detailed above with pathologic fracture and a large associated soft tissue component. Numerous additional subtle osteoblastic lesions are suggested throughout the pelvis. Continue pain control JOSE Possible related to Poor intake, Multiple myeloma Creatinine 1.5 today Gentle hydration Encourage PO intake Continue monitor BMP Cancer Pelvis bone CT ABD/pelvis results reviewed that showed a large destructive soft tissue mass lesion of the right ilium, differential diagnosis included metastatic disease, myeloma, lymphoma. CT guided soft tissue right iliac bone biopsy was done at [facility] on 07/04/20, pathology report is still pending - however, his anemia, renal failure, bone lesions, huge protein-albumin gap, serum immunofixation indicate that patient has IgA multiple myeloma Oncology was consulted Free light chain, quantitative Ig, DENNIS, B2M, cytogenetics, FISH panel order by Oncology pending Case discussed with Pathologist Dr. Lal about abnormal blood smear that consisting with finding of multiple myeloma Daughter was notified about the CT bone finding abnormal Case discussed with Oncology - Pt has a very poor prognosis Spoke to oncology that spoke to and daughter, family does not want to proceed with any treatment such as chemotherapy Palliative medicine consulted Paroxysmal atrial fibrillation: Pacemaker: Sinus node dysfunction: Rate controlled on metoprolol, will continue Continue Eliquis Severe protein-calorie malnutrition BMI 15.6 Increase protein intake DVT prophylaxis: On Eliquis CODE STATUS DNR Disposition Waiting for placement to rehab Admission and Anticipated Discharge Date Admission Date: July 05, 2020 Subjective Pt was seen and examined for follow up of anemia Reported epistaxis by nursing staff, able to manage by applying pressure Lying in bed in no distress but not very responsive, he opens eyes to voice/ tactile stimuli but does not answer Per prior attending, pt does not want to go to rehab and would like to go home, his also confirmed that with me over the phone would like him to go to [facility] since the daughter works there, and has broken wrist and can not help the pt at home Review of Systems Review of Systems: All systems reviewed & are unremarkable except as noted in HPI & below however pt does not talk much, appears comfortable, + epistaxis now controlled Physical Exam Physical Exam: Constitutional: + thin Vitals as above Eyes: PERRL, EOMI, conjunctivae normal, anicteric sclerae ENMT: external ear and nose normal, oropharynx normal, +decrease hearing function Respiratory: normal respiratory effort, lungs clear to auscultation Cardiovascular: regular rate and regular rhythm Vessels: normal peripheral pulses Extremities: no edema Gastrointestinal: normal bowel sounds, soft, nontender Musculoskeletal: moves extremities Skin: no rashes, warm and dry Neurologic: PERRL, EOMI, no face palsy, no dysarthria Psychiatric: drowsy but opens eyes to voice/ tactile stimuli, depressed affect Results & Data Results & Data ([facility]) Vital Signs (Past 12 Hours) Vital Signs Temp Pulse Resp BP Pulse Ox 07/09/20 07:51 36.6 C 80 16 131/50 L 96 Laboratory Results 07/09/20 07/09/20 Range/Units 05:58 05:58 WBC 5.87 (4.8-10.8) K/uL RBC 3.34 L (4.7-6.1) M/uL Hgb 9.5 L (14.0-18.0) g/dL Hct 30.0 L (42-52) % MCV 89.8 (80-100) fL MCH 28.4 (25-34) pg MCHC 31.7 L (32-36) g/dL RDW Std Deviation 56.3 H (36.4-46.3) fL RDW Coeff of Maryanne 17.2 H (11.5-14.5) % Plt Count 80 L (130-400) K/uL MPV 9.6 (7.4-10.4) fL Absolute Nucleated RBC 0.12 H (0-0) K/uL Nucleated RBC % (auto) 2.0 % Sodium 134 L (136-145) mmol/L Potassium 4.1 (3.5-5.1) mmol/L Chloride 98 (98-107) mmol/L Carbon Dioxide 27 (21-32) mmol/L Anion Gap 9.0 (3-11) BUN 27 H (7-18) mg/dl Creatinine 1.54 H (0.6-1.4) mg/dl Est Cr Clr Drug Dosing 24.0 ml/min Est GFR ( Amer) 48.3 Est GFR (Non-Af Amer) 41.7 BUN/Creatinine Ratio 17.8 (10-20) Glucose 95 (70-99) mg/dl Calcium 10.5 H (8.5-10.1) mg/dl Medications Administered Current Inpatient Medications Acetaminophen (Acetaminophen 325 Mg Tab) 650 mg PO Q6H PRN PRN Reason: pain Stop: 08/04/20 20:57 Apixaban (Apixaban 2.5 Mg Tab) 2.5 mg PO Q12H DEWEY Stop: 08/05/20 08:59 Last Admin: 07/09/20 08:32 Dose: 2.5 mg Documented by: Gabapentin (Gabapentin 300 Mg Cap) 300 mg PO BID [facility] Stop: 08/04/20 20:59 Last Admin: 07/09/20 08:32 Dose: 300 mg Documented by: Guaifenesin (Guaifenesin Sugar Free 100 Mg/5 Ml Udc) 100 mg PO Q6H PRN PRN Reason: Cough Stop: 08/05/20 16:01 Last Admin: 07/09/20 05:48 Dose: 100 mg Documented by: Metoprolol Succinate (Metoprolol Succ 25mg Ext Rel Tab) 25 mg PO QAM [facility] Stop: 08/05/20 08:59 Last Admin: 07/09/20 08:32 Dose: 25 mg Documented by: Metoprolol Succinate (Metoprolol Succ 25mg Ext Rel Tab) 12.5 mg PO [facility] Stop: 08/04/20 20:59 Last Admin: 07/08/20 20:26 Dose: 12.5 mg Documented by: Pantoprazole Sodium (Pantoprazole 40 Mg Tab) [facility] Stop: 08/05/20 08:59 Last Admin: 07/09/20 08:32 Dose: 40 mg Documented by: Prednisone (Prednisone 20 Mg Tab) 20 mg PO DAILY [facility] Stop: 08/05/20 16:29 Last Admin: 07/09/20 08:32 Dose: 20 mg Documented by: Tramadol HCl (Tramadol Hcl 50 Mg Tablet) 25 mg PO Q8H PRN PRN Reason: Pain Stop: 08/04/20 20:57 Last Admin: 07/09/20 08:32 Dose: 25 mg Documented by:
--- NOTE | 2020-07-09 12:36 | Palliative Care Consultation ---
Date of Consultation July 09, 2020 Assessment & Plan (1) Acute pain of right hip: Steroids are first line for bone pain and he is on prednisone. He has been on tramadol, low dose without much relief and this may be contributing to constipation. Will add morphine prn and start senna for constipation. Will also add lidoderm patch to right hip for local analgesia (2) Protein calorie malnutrition: Due to malignancy. He is on nutritional supplement. (3) Weakness: Related to malignancy, anemia, decreased po intake and deconditioning. (4) Palliative care encounter: Mr Blandon is DNR and per RN, family has expressed desire not to pursue cancer treatment. I spoke to his , Lola, on the phone. She seems a bit overwhelmed with the situation and tells me that she is dealing with a wrist fracture at this time. She does not feel able to care for Ermelinda at home without help. She defers decisions on care to her daughter, Linda Huggins, who is an RESIDENTIAL INSURANCE INSPECTOR at [employer]. I tried to call Linda but was unable to reach her. I spoke with case management. Ermelinda is scheduled for transfer to [employer] tomorrow for care with eventual goal of returning home with hospice. [id number] Called Linda again. No answer. Palliative care will follow. (5) Cancer of pelvic bone: (6) CKD (chronic kidney disease), stage III: (7) Atrial fibrillation: Atrial fibrillation type: unspecified Qualified Code(s): I48.91 - Unspecified atrial fibrillation History of Present Illness Reason for Consultation: goals of care Requesting Physician: Dr. Wayne Attending Physician: Elliot Waterman MD History of Present Illness 79 yo gentleman with generalized weakness, anemia, hip pain. He had been hospitalized previously with anemia and received transfusion. On this admission, his hemoglobin was 6.5 and he has received one unit of PRBCs. He has c/o right hip pain and CT shows large mass in right ilium with pathological fracture and extension to soft tissue. He is also noted to have numerous osteoblastic lesions in the pelvis and numerous soft tissue nodules in the right lower quadrant and retroperitoneum. With significant IgA gamma globulinopathy this is presumed to be multiple myeloma. Of note, he has had a 35 lb weight loss since April 2020 and appetite is poor. He is drowsy and confused and unable to provide any history. Per RN, he has been taking nutritional supplements. He has not c/o pain but is restless and agitated when aroused. Allergies Allergy/AdvReac Type Severity Reaction Status Date / Time No Known Allergies Allergy Verified 07/05/20 16:26 Home Medications Medication Instructions Recorded Confirmed Type gabapentin 300 mg PO BID 06/25/18 07/05/20 History Eliquis 2.5 mg PO Q12H 05/09/20 07/05/20 History metoprolol succinate 25 mg PO QAM 05/09/20 07/05/20 History pantoprazole 40 mg PO QAM 05/09/20 07/05/20 History tramadol 50 mg PO DIRECTED PRN 05/09/20 07/05/20 History metoprolol succinate 12.5 mg PO HS 05/29/20 07/05/20 History Patient History Medical History Barretts esophagus CKD (chronic kidney disease), stage III Colon polyps GERD (gastroesophageal reflux disease) Hypomagnesemia Surgical History History of total right hip replacement Family History Other Family history non-contributory Social History Smoking Status: Never smoker Second Hand Exposure: No; Hx Alcohol Use: No Hx Substance Use: No Preferred Language: Japanese Communication Ability: Effective Hearing Ability: Normal Methodologist Required: No Beliefs That Will Affect Care: None marital status: Current Living Situation: Spouse current occupational status: employed Feels Safe at Home: Yes Safety Concerns: Feels Safe At This Time Assistive Devices: Walker Review of Systems Review of Systems: [place] Symptom Assessment Scale PainAD 2/3 Dyspnea by observation 0/3 Anxiety 1/3 Anorexia 3/3 Drowsiness 2/3 Palliative Performance Score 30% Physical Exam Constitutional: + cachectic, + frail appearing and + lethargic ENMT: Mouth: + dry oral mucous membranes Respiratory: normal respiratory effort; no labored breathing Gastrointestinal (Abdomen): Inspection/Auscultation: abdomen not distended No BM since admission per RN Musculoskeletal: Extremities: + muscle atrophy Results & Data ([facility]) Vital Signs (Past 12 Hours) Vital Signs Temp Pulse Resp BP Pulse Ox 07/09/20 07:51 97.9 F 80 16 131/50 L 96 PG Care Time/CCT Total # of Minutes Spent Total Time Spent with Patient: Total time spent is greater than 50% in coordination of care (as documented) at patient's floor/unit and/or counseling patient: Coding Level of Care Code 15058 Inpt Consult Level 2 Diagnoses Acute pain of right hip M25.551 Protein calorie malnutrition E46 Weakness R53.1 Palliative care encounter Z51.5 Cancer of pelvic bone C41.4 CKD (chronic kidney disease), stage III N18.30 Atrial fibrillation I48.91 Atrial fibrillation type: unspecified
[2020-07-09] MEDS ORDERED: MoRPHine SULFATE 2 MG/ML CARP IV PRN (12:56)
[2020-07-09] MEDS: LIDOCAINE 5% 1 PATCH TD SCH (13:36)
[2020-07-09] MEDS: SENNA 8.6 MG TAB PO SCH (20:46)
[2020-07-10 06:42] LABS: Hematocrit (blood only) 30.3 % (42-52); Hemoglobin 9.4 g/dL (14.0-18.0)
[2020-07-10 07:08] LABS: BUN Creatinine Ratio 16.6 (10-20); Calcium 10.3 mg/dl (8.5-10.1); Est GFR (African American) 43.5; Est GFR (Non-African American) 37.5; Potassium 3.9 mmol/L (3.5-5.1)
[2020-07-10] MEDS: PANTOprazole 40 MG TAB PO SCH (08:11)
[2020-07-10] MEDS: APIXABAN 2.5 MG TAB PO SCH ×2 (08:11→20:09)
[2020-07-10] MEDS: METOPROLOL SUCC 25MG EXT REL TAB PO SCH ×2 (08:11→20:12)
[2020-07-10] MEDS: SENNA 8.6 MG TAB PO SCH ×2 (08:11→20:11)
[2020-07-10] MEDS: predniSONE 20 MG TAB PO SCH (08:11)
[2020-07-10] MEDS: GABAPENTIN 300 MG CAP PO SCH ×2 (08:12→20:09)
[2020-07-10] MEDS: LIDOCAINE 5% 1 PATCH TD SCH (08:12)
--- NOTE | 2020-07-10 08:21 | Hospitalist Progress Note ---
Date of Service July 10, 2020 Assessment & Plan (1) Weakness: Likely Multiple Myeloma Presenting on admission with generalized weakness and weight loss Possible due to anemia/ malignancy Multiple admissions for anemia that required transfusion Continue physical and occupational therapy Fall precaution Consider inpatient rehab Anemia Most likely due to malignancy/ MM Hgb 6.5 on admission S/P 1 unit PRBC on 07/05 Hgb 9.5 today Continue monitor CBC Hip pain Mostly due to metastasis to bone CT abd/pelvis showed large permeative destructive lesion centered in the medial right ilium as detailed above with pathologic fracture and a large associated soft tissue component. Numerous additional subtle osteoblastic lesions are suggested throughout the pelvis. Continue pain control JOSE Possible related to Poor intake, Multiple myeloma Creatinine 1.5 today Gentle hydration Encourage PO intake Continue monitor BMP Cancer Pelvis bone CT ABD/pelvis results reviewed that showed a large destructive soft tissue mass lesion of the right ilium, differential diagnosis included metastatic disease, myeloma, lymphoma. CT guided soft tissue right iliac bone biopsy was done at [facility] on 07/04/20, pathology report is still pending - however, his anemia, renal failure, bone lesions, huge protein-albumin gap, serum immunofixation indicate that patient has IgA multiple myeloma Oncology was consulted Free light chain, quantitative Ig, DENNIS, B2M, cytogenetics, FISH panel order by Oncology pending Case discussed with Pathologist Dr. Lal about abnormal blood smear that consistent with findings of multiple myeloma Daughter was notified about the CT bone finding abnormal Case discussed with Oncology - Pt has a very poor prognosis Spoke to oncology that spoke to and daughter, family does not want to proceed with any treatment such as chemotherapy Palliative medicine consulted Paroxysmal atrial fibrillation: Pacemaker: Sinus node dysfunction: Rate controlled on metoprolol, will continue Continue Eliquis Severe protein-calorie malnutrition BMI 15.6 Increase protein intake DVT prophylaxis: On Eliquis CODE STATUS DNR Disposition: home with hospice Admission and Anticipated Discharge Date Admission Date: July 05, 2020 Subjective Pt was seen and examined for follow up of anemia/ malignancy Lying in bed in no distress, opens eyes to voice/ tactile stimuli but only answers sparingly Had furrowed brow at rest before and so morphine was started as scheduled by palliative medicine Initial plan was to go to [facility] since the daughter works there, and has broken wrist and can not help the pt at home However pt has very poor prognosis and likely won't be able to do any PT, family now decided to take him home with hospice Pt very cachectic and frail. Plan for home hospice Review of Systems Review of Systems: All systems reviewed & are unremarkable except as noted in HPI & below Constitutional: no fever and no chills Respiratory: no cough and no dyspnea Cardiovascular: no chest pain and no palpitations Gastrointestinal: no abdominal pain Physical Exam Physical Exam: Constitutional: + thin, + cachectic Vitals as above Eyes: PERRL, EOMI, conjunctivae normal, anicteric sclerae ENMT: external ear and nose normal, oropharynx normal, +decrease hearing function Respiratory: normal respiratory effort, lungs clear to auscultation Cardiovascular: regular rate and regular rhythm Vessels: normal peripheral pulses Extremities: no edema Gastrointestinal: normal bowel sounds, soft, nontender Musculoskeletal: moves extremities Skin: no rashes, warm and dry Neurologic: PERRL, EOMI, no face palsy, no dysarthria Psychiatric: drowsy but opens eyes to voice/ tactile stimuli, depressed affect Results & Data Results & Data ([facility]) Vital Signs (Past 12 Hours) Vital Signs Temp Pulse Resp BP BP Pulse Ox 07/10/20 07:26 36.7 C 79 18 113/68 96 07/10/20 00:11 65 123/65 07/09/20 23:43 36.4 C L 77 16 96/52 L 97 07/09/20 20:31 93 H 18 114/63 97 Laboratory Results 07/10/20 07/10/20 Range/Units 06:15 06:15 Hgb 9.4 L (14.0-18.0) g/dL Hct 30.3 L (42-52) % Sodium 137 (136-145) mmol/L Potassium 3.9 (3.5-5.1) mmol/L Chloride 98 (98-107) mmol/L Carbon Dioxide 27 (21-32) mmol/L Anion Gap 12.0 H (3-11) BUN 28 H (7-18) mg/dl Creatinine 1.68 H (0.6-1.4) mg/dl Est Cr Clr Drug Dosing 22.0 ml/min Est GFR ( Amer) 43.5 Est GFR (Non-Af Amer) 37.5 BUN/Creatinine Ratio 16.6 (10-20) Glucose 121 H (70-99) mg/dl Calcium 10.3 H (8.5-10.1) mg/dl Medications Administered Current Inpatient Medications Acetaminophen (Acetaminophen 325 Mg Tab) 650 mg PO Q6H PRN PRN Reason: pain Stop: 08/04/20 20:57 Last Admin: 07/09/20 20:42 Dose: 650 mg Documented by: Apixaban (Apixaban 2.5 Mg Tab) 2.5 mg PO Q12H [facility] Stop: 08/05/20 08:59 Last Admin: 07/09/20 20:42 Dose: Not Given Documented by: Gabapentin (Gabapentin 300 Mg Cap) 300 mg PO BID [facility] Stop: 08/04/20 20:59 Last Admin: 07/09/20 20:46 Dose: 300 mg Documented by: Guaifenesin (Guaifenesin Sugar Free 100 Mg/5 Ml Udc) 100 mg PO Q6H PRN PRN Reason: Cough Stop: 08/05/20 16:01 Last Admin: 07/09/20 20:42 Dose: 100 mg Documented by: Lidocaine (Lidocaine 5% 1 Patch) 1 patch TD [facility] Stop: 08/08/20 13:59 Last Admin: 07/09/20 13:36 Dose: 1 patch Documented by: Metoprolol Succinate (Metoprolol Succ 25mg Ext Rel Tab) 25 mg PO [facility] Stop: 08/05/20 08:59 Last Admin: 07/09/20 08:32 Dose: 25 mg Documented by: Metoprolol Succinate (Metoprolol Succ 25mg Ext Rel Tab) 12.5 mg PO [facility] Stop: 08/04/20 20:59 Last Admin: 07/09/20 20:43 Dose: 12.5 mg Documented by: Miscellaneous (Remove Lidoderm Patch) 1 ea N/A DAILY@2100 [facility] Stop: 08/08/20 20:59 Last Admin: 07/09/20 20:47 Dose: 1 ea Documented by: Morphine Sulfate (Morphine Sulfate 2 Mg/Ml Carp) 2 mg IV Q3H PRN PRN Reason: Pain Stop: 07/23/20 12:55 Pantoprazole Sodium (Pantoprazole 40 Mg Tab) 40 mg PO [facility] Stop: 08/05/20 08:59 Last Admin: 07/09/20 08:32 Dose: 40 mg Documented by: Prednisone (Prednisone 20 Mg Tab) 20 mg PO DAILY [facility] Stop: 08/05/20 16:29 Last Admin: 02/17/21 08:32 Dose: 20 mg Documented by: Sennosides (Senna 8.6 Mg Tab) 8.6 mg PO BID [facility] Stop: 08/08/20 20:59 Last Admin: 07/09/20 20:46 Dose: 8.6 mg Documented by:
--- NOTE | 2020-07-10 12:21 | Palliative Care Progress Note ---
Date of Service July 10, 2020 Assessment & Plan (1) Acute pain of right hip: Tramadol has been discontinued. Tolerating Lidoderm patch. Pt does appear uncomfortable. Will order scheduled Roxanol Q8. (2) Protein calorie malnutrition: Due to malignancy. He is on nutritional supplement. (3) Weakness: Related to malignancy, anemia, decreased po intake and deconditioning. (4) Palliative care encounter: I talked with Vaishali in case management who stated that his and daughter would like to shift gears and have Mr. Blandon return home with Hospice services. [facility] has been contacted by case management as directed by family. When I saw Mr. Blandon, he did appear uncomfortable with furrowed brow. He was able to waken to my voice and followed simple commands and was able to converse with me. He wants to go home. Palliative ordered Morphine yesterday, but ZERO doses were utilized. Encouraged nursing to use for pain. I talked to the patients daughter Linda, to confirm the change of plans. For now, plans are to have him return home with hospice service. Linda is taking a leave of absence from work to care for her father 13/12 with her mothers support. Will schedule Roxanol 5mg SL Q8h [facility] to have consistent with the oral administration for Hospice. Hopeful discharge tomorrow pending weather and transportation. (5) Cancer of pelvic bone: (6) CKD (chronic kidney disease), stage III: (7) Atrial fibrillation: Admission and Anticipated Discharge Date Admission Date: July 05, 2020 Subjective Patient awakened to verbal stimuli. Patient appears uncomfortable, but was unable to state his pain levels or location of discomfort. Had furrowed brow at rest. Pt very cachectic and frail. Discharge disposition plans changed. Review of Systems Review of Systems: [place] Symptom Assessment Scale PainAD 2/3 Dyspnea by observation 0/3 Anxiety 0/3 Anorexia 3/3 Drowsiness 1/3 Palliative Performance Score 30% Physical Exam Constitutional: + cachectic, + frail appearing and + lethargic ENMT: Mouth: + dry oral mucous membranes Respiratory: normal respiratory effort; no labored breathing Cardiovascular: Rate/Rhythm: regular rate and regular rhythm Heart Sounds: normal S1 and normal S2 Extremities: normal capillary refill; no edema Gastrointestinal (Abdomen): Inspection/Auscultation: abdomen not distended Musculoskeletal: Extremities: + muscle atrophy Psychiatric: Orientation: alert, oriented x 3 and cooperative Eye Contact: + fair eye contact Results & Data ([facility]) Vital Signs (Past 12 Hours) Vital Signs Temp Pulse Resp BP Pulse Ox 07/10/20 07:26 36.7 C 79 18 113/68 96 PG Care Time/CCT Total # of Minutes Spent Total Time Spent with Patient: Total time spent is greater than 50% in coordination of care (as documented) at patient's floor/unit and/or counseling patient: Total time spent 35 minutes with > 50% of that time spent assessing the patient, discussing goals of care with family, providing symptom managemetn Coding Level of Care Code 93355 Subseq Hosp Care Lvl 3 Diagnoses Acute pain of right hip M25.551 Protein calorie malnutrition E46 Weakness R53.1 Palliative care encounter Z51.5 Cancer of pelvic bone C41.4 CKD (chronic kidney disease), stage III N18.30 Atrial fibrillation I48.91 Atrial fibrillation type: unspecified Time Spent (min) 35 (1) Atrial fibrillation Atrial fibrillation type: unspecified Qualified Code(s): I48.91 - Unspecified atrial fibrillation
[2020-07-10] MEDS: MoRPHine SULFATE 5 MG/0.25 ML UDP PO SCH ×2 (13:35→20:09)
[2020-07-10] MEDS ORDERED: LORazepam 0.25 MG/0.5 ML VIAL IV STA (22:35)
[2020-07-11] MEDS: MoRPHine SULFATE 5 MG/0.25 ML UDP PO SCH (05:35)
--- NOTE | 2020-07-11 08:00 | Hospitalist Progress Note ---
Date of Service July 11, 2020 Assessment & Plan (1) Weakness: Likely Multiple Myeloma Presenting on admission with generalized weakness and weight loss Possible due to anemia/ malignancy Multiple admissions for anemia that required transfusion Continue physical and occupational therapy Fall precaution Now plan for home hospice Anemia Most likely due to malignancy/ MM Hgb 6.5 on admission S/P 1 unit PRBC on 07/05 Hgb then improved to 9.5 Continue monitor CBC Hip pain Mostly due to metastasis to bone CT abd/pelvis showed large permeative destructive lesion centered in the medial right ilium as detailed above with pathologic fracture and a large associated soft tissue component. Numerous additional subtle osteoblastic lesions are suggested throughout the pelvis. Continue pain control JOSE Possible related to Poor intake, Multiple myeloma Creatinine 1.5 Gentle hydration Encourage PO intake Continue monitor BMP Cancer Pelvis bone CT ABD/pelvis results reviewed that showed a large destructive soft tissue mass lesion of the right ilium, differential diagnosis included metastatic disease, myeloma, lymphoma. CT guided soft tissue right iliac bone biopsy was done at [facility] on 07/04/20, pathology report is still pending - however, his anemia, renal failure, bone lesions, huge protein-albumin gap, serum immunofixation indicate that patient has IgA multiple myeloma Oncology was consulted Free light chain, quantitative Ig, DENNIS, B2M, cytogenetics, FISH panel order by Oncology pending Case discussed with Pathologist Dr. Lal about abnormal blood smear that consistent with findings of multiple myeloma Daughter was notified about the CT bone finding abnormal Case discussed with Oncology - Pt has a very poor prognosis Spoke to oncology that spoke to and daughter, family does not want to proceed with any treatment such as chemotherapy Palliative medicine consulted - pt is weak and likely won't be able to participate in PT, family discussed and decided for home hospice Paroxysmal atrial fibrillation: Pacemaker: Sinus node dysfunction: Rate controlled on metoprolol, will continue Continued Eliquis initially Pt developed epistaxis and so eliquis was held Severe protein-calorie malnutrition BMI 15.6 Increase protein intake if pt able to take PO DVT prophylaxis: On Eliquis CODE STATUS DNR Disposition: plan to dc home with hospice Admission and Anticipated Discharge Date Admission Date: July 05, 2020 Subjective Pt was seen and examined for follow up of anemia/ malignancy Lying in bed in no distress, having little bit of breakfast, asking about going home Had furrowed brow at rest yesterday and so morphine was started as scheduled by palliative medicine Initial plan was to go to [place] since the daughter works there, and has broken wrist and can not help the pt at home However pt has very poor prognosis and likely won't be able to do any PT, family now decided to take him home with hospice Pt very cachectic and frail. Plan for home hospice Review of Systems Review of Systems: All systems reviewed & are unremarkable except as noted in HPI & below Constitutional: + fatigue; no fever and no chills Respiratory: no dyspnea Cardiovascular: no chest pain Gastrointestinal: no abdominal pain Physical Exam Physical Exam: Constitutional: + thin, + cachectic Vitals as above Eyes: PERRL, EOMI, conjunctivae normal, anicteric sclerae ENMT: external ear and nose normal, oropharynx normal, +decreased hearing function Respiratory: normal respiratory effort, lungs clear to auscultation Cardiovascular: + tachycardic Vessels: normal peripheral pulses Extremities: no edema Gastrointestinal: normal bowel sounds, soft, nontender Musculoskeletal: moves extremities Skin: no rashes, warm and dry Neurologic: PERRL, EOMI, no face palsy, no dysarthria, generally weak Psychiatric: drowsy but opens eyes to voice/ tactile stimuli, appears depressed Results & Data Results & Data ([facility]) Vital Signs (Past 12 Hours) Vital Signs Temp Pulse Resp BP BP Pulse Ox 07/11/20 07:31 36.6 C 120 H 19 117/71 92 07/10/20 22:23 36.6 C 61 18 116/51 L 97 07/10/20 20:03 36.6 C 76 17 132/60 93 Medications Administered Current Inpatient Medications Acetaminophen (Acetaminophen 325 Mg Tab) 650 mg PO Q6H PRN PRN Reason: pain Stop: 08/04/20 20:57 Last Admin: 07/09/20 20:42 Dose: 650 mg Documented by: Apixaban (Apixaban 2.5 Mg Tab) 2.5 mg PO Q12H [facility] Stop: 08/05/20 08:59 Last Admin: 07/10/20 20:09 Dose: 2.5 mg Documented by: Gabapentin (Gabapentin 300 Mg Cap) 300 mg PO BID [facility] Stop: 08/04/20 20:59 Last Admin: 07/10/20 20:09 Dose: 300 mg Documented by: Guaifenesin (Guaifenesin Sugar Free 100 Mg/5 Ml Udc) 100 mg PO Q6H PRN PRN Reason: Cough Stop: 08/05/20 16:01 Last Admin: 07/09/20 20:42 Dose: 100 mg Documented by: Lidocaine (Lidocaine 5% 1 Patch) 1 patch TD [facility] Stop: 08/08/20 13:59 Last Admin: 07/10/20 08:12 Dose: 1 patch Documented by: Metoprolol Succinate (Metoprolol Succ 25mg Ext Rel Tab) [facility] Stop: 08/05/20 08:59 Last Admin: 07/10/20 08:11 Dose: 25 mg Documented by: Metoprolol Succinate (Metoprolol Succ 25mg Ext Rel Tab) 12.5 mg PO HS [facility] Stop: 08/04/20 20:59 Last Admin: 07/10/20 20:12 Dose: 12.5 mg Documented by: Miscellaneous (Remove Lidoderm Patch) 1 ea N/A DAILY@2100 [facility] Stop: 08/08/20 20:59 Last Admin: 07/10/20 20:10 Dose: 1 ea Documented by: Morphine Sulfate (Morphine Sulfate 5 Mg/0.25 Ml Udp) 5 mg PO Q8H [facility] Stop: 07/24/20 12:44 Last Admin: 07/11/20 05:35 Dose: 5 mg Documented by: Pantoprazole Sodium (Pantoprazole 40 Mg Tab) 40 mg PO [facility] Stop: 08/05/20 08:59 Last Admin: 07/10/20 08:11 Dose: 40 mg Documented by: Prednisone (Prednisone 20 Mg Tab) 20 mg PO DAILY [facility] Stop: 08/05/20 16:29 Last Admin: 07/10/20 08:11 Dose: 20 mg Documented by: Sennosides (Senna 8.6 Mg Tab) 8.6 mg PO BID [facility] Stop: 08/08/20 20:59 Last Admin: 07/10/20 20:11 Dose: 8.6 mg Documented by:
[2020-07-11] MEDS: APIXABAN 2.5 MG TAB PO SCH (08:08)
[2020-07-11] MEDS: SENNA 8.6 MG TAB PO SCH (08:08)
[2020-07-11] MEDS: predniSONE 20 MG TAB PO SCH (08:08)
[2020-07-11] MEDS: PANTOprazole 40 MG TAB PO SCH (08:08)
[2020-07-11] MEDS: GABAPENTIN 300 MG CAP PO SCH (08:09)
[2020-07-11] MEDS: LIDOCAINE 5% 1 PATCH TD SCH (08:09)
[2020-07-11] MEDS: METOPROLOL SUCC 25MG EXT REL TAB PO SCH (08:09)
--- NOTE | 2020-07-11 09:23 | Discharge Summary ---
Date of Service July 11, 2020 Admission HPI Per Admitting Provider 79-year-old male with PMH paroxysmal atrial fibrillation anticoagulated on Eliquis, sinus node dysfunction s/p pacemaker, right iliac mass presents the ED for evaluation of generalized weakness and hip pain. Patient had many admissions at [facility] recently for weakness and anemia that required transfusion. History obtained mostly from over the phone. Pt said that he has been having right hip pain for the last few weeks. He said that pain worsening when standing and walking. said that Pt has been having alot of pain. She said that pt is very weak. said that pt has no energy. said that she is not able to care for him. said that pt continue to lose weight. His hgb on admission was 6.5. Currently pt denies any pain, palpitation, dizziness and SOB. Admission Exam Per Admitting Provider Constitutional: + thin Vitals as above Eyes: PERRL, EOMI, conjunctivae normal, anicteric sclerae ENMT: external ear and nose normal, oropharynx normal, +decrease hearing function Respiratory: normal respiratory effort, lungs clear to auscultation Cardiovascular: regular rate and regular rhythm Vessels: normal peripheral pulses Extremities: no edema Gastrointestinal: normal bowel sounds, soft, nontender Musculoskeletal: no cyanosis or clubbing, extremities motor strength 5/5 Skin: no rashes, warm and dry Neurologic: PERRL, EOMI, no face palsy, no dysarthria Psychiatric: alert and wake, euthymic affect Insight: + limited insight Forgetful Principal Diagnosis Anemia Malignancy, likely multiple myeloma Destructive lesion involving the right iliac wing with pathologic fracture Generalized weakness Protein-calorie malnutrition Discharge Exam Constitutional: + thin, + cachectic Vitals as above Eyes: PERRL, EOMI, conjunctivae normal, anicteric sclerae ENMT: external ear and nose normal, oropharynx normal, +decreased hearing function Respiratory: normal respiratory effort, lungs clear to auscultation Cardiovascular: + tachycardic Vessels: normal peripheral pulses Extremities: no edema Gastrointestinal: normal bowel sounds, soft, nontender Musculoskeletal: moves extremities Skin: no rashes, warm and dry Neurologic: PERRL, EOMI, no face palsy, no dysarthria, generally weak Psychiatric: drowsy but opens eyes to voice/ tactile stimuli, appears depressed Discharge Data Allergies Allergy/AdvReac Type Severity Reaction Status Date / Time No Known Allergies Allergy Verified 07/05/20 16:26 Consultations 07/07/20 12:02 Consult Oncology Routine 07/08/20 18:48 Consult Palliative Care Routine Ordered Studies 07/05/20 15:56 CT lumbar spine wo con Stat IMPRESSION: 1. There is no evidence of fracture or malalignment involving the lumbar spine. 2. Osteopenia and spondylotic change as above. 3. There is a large permeative destructive lesion partially visualized involving the right iliac wing with pathologic fracture. This contains a large soft tissue component and is consistent with neoplasm. 4. No lytic or blastic lesions are clearly identified involving the lumbar spine. 5. There are numerous retroperitoneal soft tissue nodules as detailed above consistent with metastatic disease. These are new from the 2016 examination. 6. Small pleural effusions. CT pelvis wo con Stat IMPRESSION: 1. There is a large permeative destructive lesion centered in the medial right ilium as detailed above with pathologic fracture and a large associated soft tissue component. 2. Numerous additional subtle osteoblastic lesions are suggested throughout the pelvis. 3. Metastatic soft tissue nodules identified in the inferior right retroperitoneum/right lower quadrant. Hospital Course (1) Weakness: Likely Multiple Myeloma Presenting on admission with generalized weakness and weight loss Possible due to anemia/ malignancy Multiple admissions for anemia that required transfusion Continue physical and occupational therapy Fall precaution Now plan for home hospice Anemia Most likely due to malignancy/ MM Hgb 6.5 on admission S/P 1 unit PRBC on 07/05 Hgb then improved to 9.5 Continue monitor CBC Hip pain Mostly due to metastasis to bone CT abd/pelvis showed large permeative destructive lesion centered in the medial right ilium as detailed above with pathologic fracture and a large associated soft tissue component. Numerous additional subtle osteoblastic lesions are suggested throughout the pelvis. Continue pain control JOSE Possible related to Poor intake, Multiple myeloma Creatinine 1.5 Gentle hydration Encourage PO intake Continue monitor BMP Cancer Pelvis bone CT ABD/pelvis results reviewed that showed a large destructive soft tissue mass lesion of the right ilium, differential diagnosis included metastatic disease, myeloma, lymphoma. CT guided soft tissue right iliac bone biopsy was done at [facility] on 07/04/20, pathology report is still pending - however, his anemia, renal failure, bone lesions, huge protein-albumin gap, serum immunofixation indicate that patient has IgA multiple myeloma Oncology was consulted Free light chain, quantitative Ig, DENNIS, B2M, cytogenetics, FISH panel order by Oncology pending Case discussed with Pathologist Dr. Lal about abnormal blood smear that consistent with findings of multiple myeloma Daughter was notified about the CT bone finding abnormal Case discussed with Oncology - Pt has a very poor prognosis Spoke to oncology that spoke to and daughter, family does not want to proceed with any treatment such as chemotherapy Palliative medicine consulted - pt is weak and likely won't be able to participate in PT, family discussed and decided for home hospice Paroxysmal atrial fibrillation: Pacemaker: Sinus node dysfunction: Rate controlled on metoprolol, will continue Continued Eliquis initially Pt developed epistaxis and so eliquis was held Severe protein-calorie malnutrition BMI 15.6 Increase protein intake if pt able to take PO CODE STATUS DNR Disposition: plan to dc home with hospice Total Time Total Time Spent Total Time Spent (In Minutes): 35 Total Time Includes: Examination of the Patient, Discharge Planning, Medication Reconciliation and Communication With Other Providers Discharge Plan Discharge Items Patient Disposition: Hospice - Home Reason For Visit: GENERAL WEAKNESS Discharge Diagnosis: Anemia Malignancy, likely multiple myeloma Destructive lesion involving the right iliac wing with pathologic fracture Generalized weakness Protein-calorie malnutrition Activity: Per Instructions section Activity Comment: per Hospice Non-emergency contact: Primary Care Provider Call non-emergency contact if: you have any medication questions and your symptoms worsen Follow-up/Referrals: Rito Awad [Primary Care Provider] - Diet: Regular Diet Texture: Easy to Chew Addtl Attending Provider Instructions: Patient to be discharged home with home hospice. Discuss with your hospice care provider which medications would be helpful to continue and which not. Morphine was ordered per palliative medicine recommendations, as well as prednisone. Pending Studies at Discharge: Yes Studies:: oncology work-up Stand-Alone Forms: My [facility] Medications and DC Order Prescriptions: New sennosides [Senokot] 8.6 mg Tablet 8.6 mg PO BID Qty: 14 RF: 0 prednisone 20 mg Tablet 20 mg PO DAILY Qty: 10 RF: 0 lidocaine 5 % Adhesive Patch,Medicated 1 patch transdermal QAM Qty: 15 RF: 0 morphine concentrate 100 mg/5 mL (20 mg/mL) Solution 5 mg PO Q8H Qty: 30 RF: 0 Continued metoprolol succinate 25 mg tablet extended release 24 hr 25 mg PO QAM RF: 0 pantoprazole 40 mg tablet,delayed release (DR/EC) 40 mg PO QAM RF: 0 metoprolol succinate 25 mg tablet extended release 24 hr 12.5 mg PO HS RF: 0 gabapentin 300 mg capsule 300 mg PO BID RF: 0 Discontinued tramadol 50 mg tablet 50 mg PO DIRECTED PRN (Reason: Pain) RF: 0 Eliquis 5 mg tablet 2.5 mg PO Q12H RF: 0 Discharge Orders: Discharge Order (Routine); Ordered 07/11/20 Ordered By: Elliot Fatima/Other Patient Handouts: What Is Palliative Care? Admission Data Admit Date/Time: 07/05/20 19:42 Attending Provider: Elliot Waterman Admit Provider: Yanet Wayne Primary Care Provider: Rito Awad Other Providers: Rito Soliz V. ; Dave Diamondeville ; Eli Carrillo Kerens ; Sravanthi Carlson ; Yanet Wayne Other Interventions: Discharge Summary Assessment (RN) Last Done: 07/11/20 09:49
[2020-07-11 11:42] LABS: Albumin 1.7 g/dL (3.8-4.8); Alpha 1 Globulin 0.4 g/dL (0.2-0.3); Alpha 2 Globulin 0.6 g/dL (0.5-0.9); Beta-2-Globulin 6.7 g/dL (0.2-0.5); Beta-2-Microglobulin 33.04 mg/L (< OR = 2.51); Free Kappa 1024.1 mg/L (3.3-19.4); Free Kappa/Lambda Ratio 94.82 (0.26-1.65); Free Lambda 10.8 mg/L (5.7-26.3); Gamma Globulin 0.4 g/dL (0.8-1.7); Monoclonal Protein Band 1 6.5 g/dL (NONE DETECTED); Monoclonal Protein Band 2 DNR g/dL (NONE DETECTED); Monoclonal Protein Band 3 DNR g/dL (NONE DETECTED); Total Protein 9.9 g/dL (6.1-8.1)
== END 2020-07-11 11:41 | disposition hospice, home (50) | DRG 840 ==
LOC: ED 15:03 → 3W 19:42 → SUATTDRO 19:42 → 3W 20:05